=== PATIENT | male | born 1950 | race Caucasian/White ===

== ENCOUNTER 2016-11-09 18:41 | Inpatient (IN) | payer MEDICARE, OTHER ==
[~2016-11-09] VITALS: Ht 172.7 cm; Wt 65.5 kg
[~2016-11-09 18:41] MED LIST: ETOMIDATE 20 MG INJ ONE; ROCURONIUM 50 MG INJ ONE
[2016-11-09 19:12] LABS: AADO2 Arterial 32.1 mmHg (7.0-24.0); Allen Test ACCEPTAB; Arterial Base Excess 0.1 mmol/L (-3.0-3); Arterial COHb 0.3 % (0.0-3.0); Arterial Fraction of Oxyhgb 95.2 % (93.0-99.0); Arterial HCO3 22.4 mmol/L (22.0-26.0); Arterial MetHb 0.4 % (0.0-1.5); Arterial Total Hemglobin 11.9 g/dl (12.0-18.0); MODE ROOM AIR
--- NOTE | 2016-11-09 19:32 | RADRPT ---
PROCEDURE: XR Chest. CLINICAL INDICATION: Chest pain TECHNIQUE: AP view of the chest was performed. COMPARISON: None. FINDINGS: The lungs are clear. The lung volumes are normal. The heart size is enlarged. Single lead cardiac device is present with the tip in the region of the aortic knob. The osseous structures are intact . IMPRESSION: Cardiomegaly. No radiographic evidence for acute cardiopulmonary disease. RPTAT: QQ .Carrington Powell MD, MD Date Time Electronically viewed and signed by .Carrington Powell MD, MD on 11/09/2016 19:32 .M/
--- NOTE | 2016-11-09 19:34 | ERA ---
ER Documentation Chief Complaint Date/Time DATE: 11/09/16 TIME: 19:30 Chief Complaint ALOC for several days per family,HD not started today,accucheck 109 HPI 66-year-old male history of end-stage renal disease on dialysis. The patient went to dialysis today but was altered and they would not perform dialysis. Family is not available but EMS reports that the family notes that the patient has been altered for approximately 1 week, worse over the past 48 hours. The patient is nonverbal and cannot provide further history. Accu-Chek in the field was 109. ROS Nonverbal Medications Home Meds Reported Medications Warfarin Sodium* (Warfarin Sodium*) 6 Mg Tablet, 2 MG GTB DAILY, TAB 11/09/16 Sennosides* (Senna Lax*) 8.6 Mg Tablet, 1 TAB GTB BID, TAB 11/09/16 Sevelamer Carbonate* (Renvela*) 0.8 Gm Powd.pack, 0.8 GM GTB WITH MEALS Y for NEEDED, PACKET 11/09/16 Midodrine* (Midodrine*) 10 Mg Tablet, 10 MG GTB TID Y for NEEDED, TAB 11/09/16 Clopidogrel Bisulfate* (Clopidogrel Bisulfate*) 75 Mg Tablet, 75 MG GTB DAILY, # 30 TAB 11/09/16 Atorvastatin* (Atorvastatin*) 40 Mg Tablet, 40 MG GTB QHS, #30 TAB 11/09/16 Carvedilol* (Carvedilol*) 3.125 Mg Tablet, 3.125 MG GTB BID, #60 TAB 11/09/16 Docusate Sodium* (Doc-Q-Lace*) 100 Mg Capsule, 100 MG GTB BID Y for CONSTIPATION , CAP 11/09/16 Lisinopril* (Lisinopril*) 5 Mg Tablet, 5 MG GTB DAILY, #30 TAB 11/09/16 Allergies Allergies: Coded Allergies: clonidine (Verified Allergy, Unknown, 11/09/16) codeine (Verified Allergy, Unknown, 11/09/16) levetiracetam (Unverified Allergy, Unknown, 11/09/16) PMhx/Soc Unable to obtain FmHx Unable to obtain Physical Exam Vitals Vital Signs Date Time Temp Pulse Resp B/P Pulse Ox O2 Delivery O2 Flow Rate FiO2 11/09/16 22:15 99.8 107 14 148/78 99 Mechanical Ventilator 11/09/16 20:30 126 14 183/94 100 Mechanical Ventilator 11/09/16 18:58 99.1 102 18 177/82 94 Physical Exam General: Appears older than stated age, nonverbal, responsive to painful stimuli and sternal rub, slightly sonorous but protecting airway Head: Normocephalic, atraumatic. Eyes: Pupils equally reactive, EOM intact ENT: Dry mucous membranes Neck: Supple, no lymphadenopathy Respiratory: Slight rhonchi at the bases, nonlabored Cardiovascular: RRR, no murmurs, rubs, or gallops Abdominal: Soft, non-tender, non-distended, no peritoneal signs : Deferred MSK: No edema, no unilateral swelling, diffuse generalized weakness, limited movement of all extremities Neurologic: Sonorous, nonverbal, limited movement of all extremities, GCS of 10 Skin: No rash Psych: Normal mood Result Diagram: 11/09/16190911/09/161909 Results 24 hrs Laboratory Tests Test 11/09/16 18:45 11/09/16 19:10 11/09/16 19:20 11/09/16 19:55 Arterial Blood HCO3 22.4mmol/L 24.0mmol/L Arterial Blood Base Excess 0.1mmol/L 0mmol/L Arterial Blood Oxygen Saturation 95.9mmHG 97.3mmHG Adam Test ACCEPTAB ACCEPTAB Arterial Blood Gas Puncture Site Right Radial Right Radial Arterial Blood Carboxyhemoglobin 0.3% 0.3% Arterial Blood Date Drawn 11/09/2016 7:06:39 PM 11/09/2016 9:17:30 PM Arterial Blood Methemoglobin 0.4% 0.4% Arterial Blood pCO2 (Temp correct) 29.5mmhg 36.9mmhg Arterial Blood pH (Temp corrected) 7.499 7.431 Arterial Blood pO2 (Temp corrected) 82.3mmHG 101.4mmHG Blood Gas A-a O2 Differential 32.1mmHg 213.6mmHg Blood Gas Modality ROOM AIR VENT - AC Blood Gas Notified Time 11/09/2016 7:12:11 PM 11/09/2016 9:21:57 PM Blood Gas Notified Whom MG MG Blood Gas Specimen Source Blood arterial Blood arterial Blood Gas Temperature 37.0C 37.0C FiO2 21.0% 50.0% Oxyhemoglobin Percent 95.2% 96.6% Total Hemoglobin 11.9g/dl 11.8g/dl Activated Partial Thromboplast Time 45.3Sec Alanine Aminotransferase (ALT/SGPT) 123IU/L Albumin 3.0g/dl Albumin/Globulin Ratio 0.69 Alkaline Phosphatase 271IU/L Ammonia < 9umol/l Anion Gap 20 Aspartate Amino Transf (AST/SGOT) 149IU/L Basophils # 0.010^3/ul Basophils % 0.2% Blood Urea Nitrogen 98mg/dl Calcium Level 9.5mg/dl Carbon Dioxide Level 30mmol/L Chloride Level 97mmol/L Creatinine 4.70mg/dl Direct Bilirubin 0.00mg/dl Eosinophils # 0.410^3/ul Eosinophils % 3.2% Ethyl Alcohol Level < 10.0mg/dl Free Thyroxine Index 1.99ug/ml Globulin 4.30g/dl Glucose Level 103mg/dl Hematocrit 38.3% Hemoglobin 12.2g/dl INR International Normalized Ratio 1.62 Indirect Bilirubin 0.0mg/dl Lactic Acid Level 1.7mmol/L Lymphocytes # 1.510^3/ul Lymphocytes % 10.8% Mean Corpuscular Hemoglobin 30.0pg Mean Corpuscular Hemoglobin Concent 31.9g/dl Mean Corpuscular Volume 94.3fl Mean Platelet Volume 9.9fl Monocytes # 1.710^3/ul Monocytes % 12.4% Neutrophils # 9.810^3/ul Neutrophils % 72.0% Nucleated Red Blood Cells # 0.010^3/ul Nucleated Red Blood Cells % 0.0/100WBC Platelet Count 36925^3/UL Potassium Level 3.8mmol/L Prothrombin Time 19.4Sec Prothrombin Time Ratio 1.5 Red Blood Count 4.0610^6/ul Red Cell Distribution Width 15.9% Sodium Level 143mmol/L Thyroxine (T4) 4.0ug/dl Total Bilirubin 0.0mg/dl Total Protein 7.3g/dl Triiodothyronine (T3) Uptake 49.7% Troponin I 0.079ng/ml White Blood Count 13.610^3/ul Bedside Glucose 95mg/dL Blood Gas Actual Respiration Rate 14 Blood Gas Inspiratory Pressure 21.0 Blood Gas Low PEEP Setting 5.0cmH2O Blood Gas Respiration Rate 14.0 Blood Gas Tidal Volume 500.0mL Test 11/09/16 21:35 Lactic Acid Level 1.6mmol/L Current Medications Medications (Trade) Dose Ordered Sig/Ihsan Route PRN Reason Start Time Stop Time Status Last Admin Dose Admin Rocuronium Aurora (Zemuron) 100 mg ONCE STAT IV 11/09/16 19:55 11/09/16 19:56 DC Etomidate 20 mg 20 mg ONCE STAT IV 11/09/16 19:55 11/09/16 19:56 DC Propofol (Diprivan) 100 ml @ 2.182 mls/ hr ONCE STAT IV 11/09/16 19:55 11/11/16 17:44 Sodium Chloride 2250 ml 2,250 ml BOLUS OVER 2 HOURS STAT IV* 11/09/16 19:56 11/09/16 20:00 DC 11/09/16 20:14 Cefepime HCl 50 ml @ 100 mls/hr ONCE STAT IVPB 11/09/16 19:56 11/09/16 20:25 DC 11/09/16 20:13 Vancomycin HCl 250 ml @ 125 mls/hr ONCE ONCE IVPB 11/09/16 20:00 11/09/16 21:59 DC 11/09/16 22:08 Midazolam HCl 50 ml @ 3 mls/hr ONCE STAT IV 11/09/16 20:09 11/10/16 12:48 11/09/16 22:09 Fentanyl 100 ml @ 2.5 mls/hr TITRATE ONCE IV 11/09/16 20:30 11/11/16 12:29 11/09/16 22:14 Clindamycin HCl/ Dextrose (Cleocin 600 Mg/ D5W (Pmx)) 50 ml @ 50 mls/hr ONCE IVPB 11/09/16 22:00 11/09/16 22:59 Procedures/MDM EKG, MONITORS, & DIAGNOSTIC IMAGING: EKG: I reviewed and interpreted a 12-lead EKG. Rhythm: Sinus tachycardia Ectopy: None Intervals: No abnormalities ST segments: No elevations or depressions T waves: No contiguous inversions Chest x-ray: I reviewed and interpreted a 1 view of the chest Mediastinum: No enlargement Cardiac silhouette: No cardiomegaly Airspace: Clear lung santos bilaterally without evidence of pneumothorax Bones: No evidence of fracture CXR s/p intubation Chest x-ray: I reviewed and interpreted a 1 view of the chest Mediastinum: No enlargement Cardiac silhouette: No cardiomegaly Airspace: Clear lung santos bilaterally without evidence of pneumothorax Bones: No evidence of fracture Endotracheal tube in the right mainstem Of note the endotracheal tube was pulled back 3 cm after the second x-ray was obtained. Bilateral breath sounds were auscultated. CT brain: IMPRESSION: 1. Normal right frontal lobe ischemic infarct with extensive chronic microvascular ischemic changes in the deep white matter. 2. Marked parenchymal volume loss compatible with global atrophy. 3. Early ischemic injury may be occult to CT imaging and diffusion weighted MRI may be considered as clinically warranted. CT a/p IMPRESSION: 1. Cardiomegaly with extensive atherosclerotic vascular disease involving the coronary arteries, thoracic and abdominal aorta, renal arteries, common iliac arteries, internal and external iliac and common femoral arteries. 2. There is a small pericardial effusion. 3. There is consolidative infiltrate in the right lower lobe and the 8 ml pleural-based pulmonary nodule in the right lower lobe. Follow-up imaging is recommended to confirm stability and/or clearing of these lesions in 3 months. 4. There is a small right pleural effusion. 5. Mild hepatomegaly. No hepatic mass or intrahepatic biliary ductal dilatation is identified. Ultrasound should be considered for further evaluation of the liver. 6. Bilaterally small kidneys with multiple renal cysts suspicious for chronic medical renal disease. Small nonobstructive nephrolith in the right kidney as described above. The renal sonogram is recommended for further characterization a 1.7 cm hyperattenuating subcapsular lesion superior pole right kidney. 7. Reflex ileus. 8. Midline umbilical hernia containing fat. 9. Fecal impaction in the rectal ampulla. 10. Right inguinal hernia containing fat. There is fat bulging into the left inguinal canal. RPTAT:AAJJ PROCEDURES: Intubation Note: Indication: Airway protection Consent: This was an emergent situation, implied consent was observed RSI Medications: Etomidate 20 mg, Rocuronium 100 mg Tube size: 7.5 Secured at: 23.5 at the lip Procedure: Endotracheal intubation was performed. The patient was preoxygenated with supplemental oxygen, the room was set up with emergent airway equipment including [id number], suction, adjunct airways. Direct visualization of the cords was performed with direct laryngoscopy using a 4.0 Mac blade, insertion of the endotracheal tube through the cords was visualized by the lithograph press operator. Bilateral breath sounds were auscultated, color change was observed. The tube was then secured in a postintubation chest x-ray was ordered. The patient tolerated the procedure well there were no complications. Peripheral IV Insertion: Indication: Difficult IV access Location: Right forearm Attempts: 1 Angiocath-type: 18-gauge Sterile procedure was used to insert a peripheral IV. Indication, location and Angiocath-type are noted above. Ultrasound guidance was used to assist in the insertion of the Angiocath. Return of dark nonpulsatile blood was obtained, normal saline flushed through the Angiocath which was then secured to the skin. The patient tolerated the procedure well without complications. Emergency Bedside Ultrasound: Indication: Peripheral IV insertion Probe Type: Linear Findings: Dynamic ultrasound utilized with compression technique with both linear and horizontal views. The images were not saved because there is no printing or saving availability or capability on this ultrasound, the patient tolerated the procedure well and there were no complications. LAB INTERPRETATION: Leukocytosis, normal lactic acid MEDICAL DECISION MAKING: The patient presents with altered mental status of at least 48 hours. The patient is a dialysis patient. Extremely broad differential that includes intracranial hemorrhage, stroke, electrolyte disturbance, sepsis, chronic encephalopathy among others. The patient is sonorous but appears to be withdrawing to pain and protecting his airway. His GCS is 10 therefore if he has any deterioration I would anticipate early intubation. However, given the patient's comorbidities, age, I would like to avoid unnecessary intubation. Since the patient's oxygen saturation is 97 and above his arterial blood gas is reassuring and the patient does not appear to be aspirating I will hold off and intubation at this point. However, close airway monitoring is necessary and the patient should be admitted to the ICU. ER COURSE: The patient has a leukocytosis. During his ER course the patient deteriorated. His GCS dropped below 8. Despite a reassuring blood gas I do not feel that the patient was protecting his airway. He was at significant aspiration risk, the family was not available and the patient was intubated as documented above. He was intubated for airway protection. The patient's endotracheal tube was in the right mainstem after intubation and eventually pulled back 3 cm after chest x-ray determined mainstem intubation. The patient now has improved bilateral breath sounds. The patient is being sedated with fentanyl and Versed. The family arrived later and states that this has been his mental status for some time. They would prefer extubation if at all possible however given the patient's leukocytosis and CT findings concerning for aspiration pneumonia I do not feel that extubation at this time is appropriate. The patient will need more stabilization and reassessment tomorrow morning. The family feels comfortable with this plan at this time. The patient does meet criteria for sepsis. No evidence that the patient requires a central line or pressors at this time. Lactic acid is reassuring. I kept the patient and/or family informed of laboratory and diagnostic imaging results throughout the emergency room course. DISPOSITION PLAN: ICU CONSULTATION: Accepting care team and consultations: I discussed the current laboratory data, diagnostic imaging and emergency care provided. Admitting team: Dr. Cormier Admitting team indication: Insurance directed Sepsis Documentation: Patient's infectious symptoms have not stabilized and the patient is at risk of rapid decompensation. The patient will be admitted for careful hydration, antibiotic therapy, and infectious source control. SEVERE SEPSIS CRITERIA: Infectious source: Aspiration pneumonia End organ damage indicated by: Acute Resp Failure SEPSIS MANAGEMENT Time of recognition of severe sepsis/septic shock: [address] results of pneumonia 3 HOUR BUNDLE Blood cultures x 2 before broad-spectrum antibiotics: Yes 30 ml/kg NS bolus Completed Initial lactate less than 2 Repeat lactate pending SEPTIC SHOCK ASSESSMENT: No lactic acid > 4.0 No persistent hypotension (SBP < 90 or 40 mmHg drop, MAP < 65) despite 30 mL/kg IV fluid bolus VOLUME REASSESSMENT FOR SEPTIC SHOCK: Reevaluation Time: 10:23 PM Temperature of 99.8, heart rate 107, respiratory rate 14, blood pressure 148/70 , pulse of 99 on ventilator Heart Regular rate & rhythm Lungs No crackles Skin Warm & dry Cap Refill Less than 2 seconds Peripheral pulses Radially present PERSISTENT HYPOTENSION TREATMENT: Comfort care No Central line Not Required Vasopressor started Not required I considered further perfusion assessment with CVP measurement, SCVO2, bedside ultrasound volume assessment, passive leg raise, trial of further fluid bolus. And proceeded with 30 ml/kg fluid bolus of NSS, broad spectrum antbiotics, and admission. CRITICAL CARE Critical care time 47 minutes Emergent fluid management while maintaining close respiratory support. Provision of immediate and broad-spectrum antibiotic therapy. Simultaneous assessment for possible sources in order to direct targeted therapy. Consideration for invasive and chemical support to prevent cardiopulmonary collapse. Critical care time is independent of procedures performed. Departure Diagnosis: Primary Impression: Altered level of consciousness Additional Impressions: Severe sepsis Aspiration pneumonia Qualified Code: J69.0 - Aspiration pneumonia of right lower lobe, unspecified aspiration pneumonia type Transaminitis Encephalopathy chronic Acute respiratory failure Qualified Code: J96.00 - Acute respiratory failure, unspecified whether with hypoxia or hypercapnia Condition: Critical IBAN TREVINO MD Nov 09, 2016 19:34
[2016-11-09 19:35] LABS: BASOPHILS % 0.2 % (0.0-2.0); EOSINOPHILS # 0.4 10^3/ul (0.0-0.5); EOSINOPHILS % 3.2 % (0.0-7.0); HEMATOCRIT 38.3 % (42.0-52.0); HEMOGLOBIN 12.2 g/dl (14.0-18.0); LYMPHOCYTES # 1.5 10^3/ul (0.8-2.9); LYMPHOCYTES % 10.8 % (15.0-51.0); MEAN CORPUSCULAR HGB CONC 31.9 g/dl (32.0-37.0); MEAN CORPUSCULAR VOLUME 94.3 fl (82.0-101.0); MEAN PLATELET VOLUME 9.9 fl (7.4-10.4); MONOCYTE # 1.7 10^3/ul (0.3-0.9); MONOCYTES % 12.4 % (0.0-11.0); NEUTROPHIL # 9.8 10^3/ul (1.6-7.5); PLATELET COUNT 493 10^3/UL (140-415); RED BLOOD COUNT 4.06 10^6/ul (4.70-6.10); RED CELL DISTRIBUTION WIDTH 15.9 % (11.5-14.5); WHITE BLOOD COUNT 13.6 10^3/ul (4.8-10.8)
[2016-11-09 19:48] LABS: INR 1.62; PROTIME 19.4 Sec (12.2-14.2); PT RATIO 1.5
[2016-11-09 19:49] LABS: PARTIAL THROMBOPLASTIN TIME 45.3 Sec (25.0-35.0)
[2016-11-09 19:53] LABS: CHLORIDE 97 mmol/L (97-110); POTASSIUM 3.8 mmol/L (3.5-5.1); SODIUM 143 mmol/L (135-144)
[2016-11-09 19:54] LABS: LACTIC ACID 1.7 mmol/L (0.5-2.2)
[2016-11-09 19:55] LABS: ALANINE AMINOTRANSFERASE 123 IU/L (13-69); ALBUMIN/GLOBULIN RATIO 0.69; ALKALINE PHOSPHATASE 271 IU/L (42-121); ANION GAP 20 (8-16); ASPARTATE AMINO TRANSFERASE 149 IU/L (15-46); BLOOD UREA NITROGEN 98 mg/dl (7-20); CARBON DIOXIDE 30 mmol/L (21-31); GLUCOSE 103 mg/dl (70-220); TOTAL PROTEIN 7.3 g/dl (6.1-8.1)
[2016-11-09] MEDS ORDERED: ETOMIDATE 20 MG INJ IV STA (19:55)
[2016-11-09] MEDS ORDERED: ROCURONIUM 50 MG INJ IV STA (19:55)
[2016-11-09] MEDS ORDERED: PROPOFOL 100 ML IV STA (19:55)
[2016-11-09 19:56] LABS: CALCIUM 9.5 mg/dl (8.4-10.2)
[2016-11-09] MEDS ORDERED: SODIUM CHLORIDE 0.9% 1L BAG IV* STA (19:56)
[2016-11-09] MEDS ORDERED: CEFEPIME 2GM/50 ML (PMX) 50 ML IVPB STA (19:56)
[2016-11-09 19:58] LABS: ETHANOL < 10.0 mg/dl
[2016-11-09 20:00] LABS: AMMONIA < 9 umol/l (9-30)
[2016-11-09] MEDS ORDERED: VANCOMYCIN 1 GM (PMX) 250 ML IVPB ONE (20:00)
[2016-11-09 20:07] LABS: TROPONIN-I 0.079 ng/ml (0.00-0.12)
[2016-11-09] MEDS ORDERED: MIDAZOLAM (DRIP) 50 mg/50 mL 50 ML IV STA (20:09)
[2016-11-09] MEDS ORDERED: FENTAnyl (DRIP) 1000 mcg/100mL 100 ML IV ONE (20:30)
[2016-11-09 20:37] LABS: T3 UPTAKE 49.7 % (23.5-40.5)
--- NOTE | 2016-11-09 20:38 | RADRPT ---
PROCEDURE: XR Chest. CLINICAL INDICATION: Assess endotracheal tube placement. TECHNIQUE: Single frontal view of the chest was obtained COMPARISON: Chest x-ray 11/09/2016. FINDINGS: The soft tissues are normal. The bony elements are normal. The heart, left side aorta, cardiomedias tinal silhouette, pulmonary vasculature and hilar structures are normal. The lungs are clear. The co stophrenic angles are normal. The endotracheal tube is in the right mainstem bronchus and should be withdrawn about 4 cm for better positioning. A single lead cardiac device is identified with the tip projecting at the level of the aortic arch. IMPRESSION: 1. The endotracheal tube rests in the proximal right mainstem bronchus and should be withdrawn 3-4 c m for more superior positioning. 2. Cardiomegaly. 3. Single lead cardiac device with the distal electrode tip projecting at the level of the aortic a rch.. RPTAT:AAJJ Physician Don Date Time Electronically viewed and signed by Physician Don on 11/09/2016 20:38 MICHAELA/
--- NOTE | 2016-11-09 20:57 | RADRPT ---
PROCEDURE: CT Brain without contrast. CLINICAL INDICATION: Altered Mental Status TECHNIQUE: A multiplanar CT of the brain was performed on a CT scanner utilizing axial imaging fro m the skull base through the vertex without IV contrast. The CTDIvol is 43.68 mGy and the DLP is 63 0.20 mGycm. One or more of the following dose reduction techniques were utilized: Automated exposu re control, adjustment of the mA and/or kV according to patient size, use of iterative reconstructio n technique. COMPARISON: None FINDINGS: No evidence of intracranial hemorrhage or abnormal extra-axial fluid collection. Wedge-shaped defect in the right frontal lobe compatible with remote ischemic infarct. Extensive co nfluent low attenuation throughout the deep white matter compatible with sequelae of chronic microva scular ischemic injury. The ventricles and subarachnoid spaces are markedly prominent compatible wi th diffuse cerebral parenchymal volume loss. Opacification of fluid levels within the right maxillary and sphenoid sinuses compatible with acute and chronic inflammatory changes. The posterior fossa contents, brainstem, craniocervical junction, orbits, pituitary axis, paranasal sinuses, mastoid air cells, and calvarium are unremarkable. IMPRESSION: 1. Normal right frontal lobe ischemic infarct with extensive chronic microvascular ischemic changes in the deep white matter. 2. Marked parenchymal volume loss compatible with global atrophy. 3. Early ischemic injury may be occult to CT imaging and diffusion weighted MRI may be considered as clinically warranted. RPTAT:AAJJ Physician Bharathi Date Time Electronically viewed and signed by Physician Bharathi on 11/09/2016 20:57 DEJON/
[2016-11-09] MEDS ORDERED: LISI-313 GTB (21:09)
[2016-11-09] MEDS ORDERED: DOCU100C26 GTB (21:09)
[2016-11-09] MEDS ORDERED: CARV3.1260 GTB (21:10)
[2016-11-09] MEDS ORDERED: ATOR40TA68 GTB (21:10)
[2016-11-09] MEDS ORDERED: CLOP75TA4 GTB (21:11)
[2016-11-09] MEDS ORDERED: MIDO10TA GTB (21:12)
[2016-11-09] MEDS ORDERED: SEVE0.8P GTB (21:13)
[2016-11-09] MEDS ORDERED: SENN-53 GTB (21:14)
[2016-11-09] MEDS ORDERED: WARF6TAB35 GTB (21:16)
--- NOTE | 2016-11-09 21:16 | RADRPT ---
PROCEDURE: CT scan of the abdomen and pelvis without IV contrast. CLINICAL INDICATION: Transaminase. TECHNIQUE: Thin section axial, coronal and sagittal images were performed through the abdomen and pelvis without contrast. Radiation Dose: CTDI: 13.05 and DLP: 731.3 One or more of the following dose reduction techniques were used: - Automated exposure control. - Adjustment of the mA and/or kV according to patient size. Use of iterative reconstruction technique. COMPARISON: Chest x-ray 11/02/2016 06:18 a.m. FINDINGS: Soft tissues: Normal. Lungs and pleural spaces: There is consolidative infiltrate in the medial aspect of the left lower l obe. There is a 8 mm pulmonary nodule abutting the pleural surface in the right lower lobe. There is a small right pleural effusion. There is peripheral atelectasis in the right lower lobe. Heart: The heart is enlarged. There are vascular calcifications at the root of the aorta, in the de scending thoracic aorta and coronary arteries. There is a small pericardial effusion. The liver, common bile duct and gallbladder: The liver measures 15.6 cm AP. No hepatic mass or intr ahepatic biliary ductal dilatation is identified. The gallbladder and gallbladder wall are normal. Gastrointestinal: There is no evidence of a hiatal hernia. The stomach is incompletely distended an d contains some fluid. The small bowel loops and a normal caliber. There is scattered fecal materi al and air in the colon. There is a large amount of fecal material in the rectal ampulla suspicious for a rectal impaction. There is a small right inguinal hernia containing fat. There is a small u mbilical hernia containing fat. Pancreas: Normal. The extrahepatic common bile duct is normal. Kidneys, bladder and adrenal glands : The adrenal glands are normal. The kidneys are small and smoothly marginated and contain multiple small cysts. There is a 1.7 cm subcapsular lesion in the dorsal upper pole of the right kidney. This is incomple tely characterized on this noncontrast CT scan. Hounsfield units measure 76. A hemorrhagic cyst, p roteinaceous cyst or solid lesion might present this fashion. Ultrasound is recommended to complete the evaluation. A 2.8 mm nonobstructive nephrolith is identified in the mid pole of the right kidney. A 2 mm nonobs tructive nephrolith is identified in the lower pole of the right kidney. There are multiple benign cyst in the left kidney. There is a 1.5 cm subcapsular lesion in the uppe r pole of the right kidney with Hounsfield units measuring 10.2 consistent with a benign cyst. Ther e are vascular calcifications in the right left renal arteries. Spleen: The spleen is normal measuring 11.5 cm. There are vascular calcifications in the splenic ar pedro. Lymph nodes: Normal. Reproductive system and pelvis : Normal. The prostate and seminal vesicles are unremarkable. Bony elements: There are degenerative osteophytes in the lower thoracic and lumbar spine. Vasculature: There is extensive atherosclerotic change in the thoracic and abdominal aorta as well a s the common iliac arteries. There is fusiform dilatation of the upper abdominal aorta measuring up to 3.9 cm in maximal transverse diameter. IMPRESSION: 1. Cardiomegaly with extensive atherosclerotic vascular disease involving the coronary arteries, th oracic and abdominal aorta, renal arteries, common iliac arteries, internal and external iliac and c ommon femoral arteries. 2. There is a small pericardial effusion. 3. There is consolidative infiltrate in the right lower lobe and the 8 ml pleural-based pulmonary n odule in the right lower lobe. Follow-up imaging is recommended to confirm stability and/or clearin g of these lesions in 3 months. 4. There is a small right pleural effusion. 5. Mild hepatomegaly. No hepatic mass or intrahepatic biliary ductal dilatation is identified. Ult rasound should be considered for further evaluation of the liver. 6. Bilaterally small kidneys with multiple renal cysts suspicious for chronic medical renal disease . Small nonobstructive nephrolith in the right kidney as described above. The renal sonogram is rec ommended for further characterization a 1.7 cm hyperattenuating subcapsular lesion superior pole rig ht kidney. 7. Reflex ileus. 8. Midline umbilical hernia containing fat. 9. Fecal impaction in the rectal ampulla. 10. Right inguinal hernia containing fat. There is fat bulging into the left inguinal canal. RPTAT:AAJJ Physician Don Date Time Electronically viewed and signed by Physician Don on 11/09/2016 21:15 LEIGH ANN
[2016-11-09 21:22] LABS: AADO2 Arterial 213.6 mmHg (7.0-24.0); Allen Test ACCEPTAB; Arterial Base Excess 0 mmol/L (-3.0-3); Arterial COHb 0.3 % (0.0-3.0); Arterial Fraction of Oxyhgb 96.6 % (93.0-99.0); Arterial MetHb 0.4 % (0.0-1.5); Arterial Total Hemglobin 11.8 g/dl (12.0-18.0); MODE VENT - AC
[2016-11-09] MEDS ORDERED: CLINDAMYCIN 600 MG/D5W (PMX) 50 ML IVPB SCH (22:00)
[2016-11-09 22:15] VITALS: TEMP 99.8
[2016-11-09] MEDS ORDERED: morphine 2 MG INJ IV PRN (23:30)
[2016-11-09] MEDS ORDERED: NACL 0.9% 3 ML SYG IV SCH (23:30)
[2016-11-09] MEDS ORDERED: VANCOMYCIN IV PER PHARMACY XX SCH (23:30)
[2016-11-09] MEDS ORDERED: ONDANSETRON 4 MG INJ IV PRN (23:30)
[2016-11-10] VITALS (56 sets, daily range): BP systolic 60–141; BP diastolic 35–72; PULSE 72–92; RESP 12–25; Ht 172.7 cm; Wt 65.5 kg
[2016-11-10 00:40] LABS: ADD UMIC YES; URINE BILIRUBIN (Dip) NEGATIVE (NEGATIVE); URINE BLOOD (Dip) TRACE (NEGATIVE); URINE COLOR LT. YELLOW (YELLOW); URINE GLUCOSE (Dip) NEGATIVE (NEGATIVE); URINE KETONES (Dip) NEGATIVE (NEGATIVE); URINE LEUKOCYTE ESTERASE (Dip) NEGATIVE (NEGATIVE); URINE NITRITE (Dip) NEGATIVE (NEGATIVE); URINE TOTAL PROTEIN (Dip) 2+ (NEGATIVE); URINE UROBILINOGEN (Dip) 0.2 E.U./dL (0.1-1.0)
[2016-11-10] MEDS ORDERED: NORepinephrine 8MG/250 ML (PMX 250 ML IV SCH (01:00)
[2016-11-10 01:50] LABS: SQUAMOUS EPITHELIAL CELL,UR RARE; URINE RBCS 0-2 /HPF (0)
[2016-11-10] MEDS: SOD CHLORIDE 0.45% 1,000 ML IV SCH ×2 (02:30→23:07)
[2016-11-10] MEDS ORDERED: MIDAZOLAM (DRIP) 50 mg/50 mL 50 ML IV SCH (03:30)
--- NOTE | 2016-11-10 04:36 | RADRPT ---
PROCEDURE: XR Chest. CLINICAL INDICATION: Endotracheal tube repositioning TECHNIQUE: Portable single view of the chest COMPARISON: 11/09/2016 FINDINGS: The endotracheal tube has been pulled back and is now in good position. The exam is otherwise uncha nged. The lung santos remain clear. Cardiomegaly. Cardiac device unchanged in position. IMPRESSION: Endotracheal tube now in good position. RPTAT: HLBE Greta Mckeon, Physician Date Time Electronically viewed and signed by Greta Mckeon, Physician on 11/10/2016 04:36 LE/
[2016-11-10] MEDS: PANTOPRAZOLE 40 MG INJ IV SCH (05:35)
[2016-11-10 05:42] LABS: ADD SCAN DIFF NO; HAAIG REFLEX REFLEX FILED
[2016-11-10 05:55] LABS: ABNORMAL IP MESSAGE 1; BASOPHIL # 0.1 10^3/ul (0.0-0.1); BASOPHILS % 0.4 % (0.0-2.0); EOSINOPHILS % 0.1 % (0.0-7.0); HEMATOCRIT 32.9 % (42.0-52.0); HEMOGLOBIN 10.2 g/dl (14.0-18.0); LYMPHOCYTES # 1.6 10^3/ul (0.8-2.9); LYMPHOCYTES % 12.8 % (15.0-51.0); MEAN CORPUSCULAR HEMOGLOBIN 30.1 pg (29.0-33.0); MEAN CORPUSCULAR VOLUME 97.1 fl (82.0-101.0); MEAN PLATELET VOLUME 10.7 fl (7.4-10.4); MONOCYTE # 1.7 10^3/ul (0.3-0.9); MONOCYTES % 13.9 % (0.0-11.0); NEUTROPHIL # 8.7 10^3/ul (1.6-7.5); NEUTROPHILS % 71.4 % (39.0-77.0); PLATELET COUNT 415 10^3/UL (140-415); RED BLOOD COUNT 3.39 10^6/ul (4.70-6.10); RED CELL DISTRIBUTION WIDTH 16.2 % (11.5-14.5); WHITE BLOOD COUNT 12.1 10^3/ul (4.8-10.8)
[2016-11-10] MEDS ORDERED: PIPER-TAZO 3.375 GM IV (PMX) 100 ML IVPB SCH (06:00)
[2016-11-10 06:16] LABS: ALBUMIN 2.6 g/dl (3.3-4.9)
[2016-11-10 06:17] LABS: POTASSIUM 3.7 mmol/L (3.5-5.1)
[2016-11-10 06:18] LABS: CREATININE 4.19 mg/dl (0.61-1.24)
[2016-11-10 06:19] LABS: ALBUMIN/GLOBULIN RATIO 0.68; BILIRUBIN,INDIRECT 0.1 mg/dl (0-1.1); BILIRUBIN,TOTAL 0.1 mg/dl (0.2-1.3); TOTAL PROTEIN 6.4 g/dl (6.1-8.1)
[2016-11-10 06:20] LABS: CALCIUM 8.3 mg/dl (8.4-10.2); MAGNESIUM 2.3 mg/dl (1.7-2.5); PHOSPHORUS 4.5 mg/dl (2.5-4.9)
[2016-11-10 06:49] LABS: HEPATITIS B CORE ANTIBODY NEGATIVE (NEGATIVE)
[2016-11-10 08:50] LABS: AADO2 Arterial 118.7 mmHg (7.0-24.0); Allen Test ACCEPTAB; Arterial Base Excess -2.6 mmol/L (-3.0-3); Arterial COHb 0.3 % (0.0-3.0); Arterial Fraction of Oxyhgb 97.5 % (93.0-99.0); Arterial HCO3 20.6 mmol/L (22.0-26.0); Arterial MetHb 0.3 % (0.0-1.5); Arterial Total Hemglobin 9.6 g/dl (12.0-18.0); MODE VENT - AC
[2016-11-10] MEDS ORDERED: LISINOPRIL 5 MG TAB GTB SCH (09:00)
[2016-11-10] MEDS ORDERED: WARFARIN 3 MG TAB GTB SCH (09:00)
--- NOTE | 2016-11-10 09:22 | HP ---
DATE OF ADMISSION: 11/09/2016 TIME: 10:00 p.m. CHIEF COMPLAINT: Altered mental status. HISTORY OF PRESENT ILLNESS: The patient is a 66-year-old male with a history of end-stage renal dis ease, on dialysis. The patient also reportedly has a recent history of a stroke and is status post PEG placement. The patient apparently went to dialysis today, was altered, and they would not perfo rm dialysis. The family is not available and, per EMS report and the ER notes, the family had noted the patient had been altered for possibly a week and worse for the past 48 hours. The decision was made to intubate the patient in the ED. No other information can be obtained by the patient. PAST MEDICAL HISTORY: End-stage renal disease and stroke, as well as hypertension from home medicat ions. PAST SURGICAL HISTORY: Unknown. HOME MEDICATIONS: 1. Coumadin. 2. Senna. 3. Renagel. 4. Midodrine. 5. Plavix. 6. Atorvastatin. 7. Coreg. 8. Docusate. 9. Lisinopril. ALLERGIES: 1. CODEINE. 2. CLONIDINE. 3. KEPPRA. FAMILY HISTORY: Unknown. SOCIAL HISTORY: Unknown. REVIEW OF SYSTEMS: Unable to obtain secondary to poor mentation. PHYSICAL EXAMINATION: VITAL SIGNS: Temperature is 99.8, pulse is 107, respiratory rate is 14, BP is 148/78, saturations 9 9% on mechanical ventilation. GENERAL: Nonverbal, intubated. HEENT: Normocephalic, atraumatic. LUNGS: Clear to auscultation. CARDIOVASCULAR: Tachycardic. ABDOMEN: Nondistended, nontender, soft. EXTREMITIES: No clubbing, cyanosis, or edema. LABORATORIES: White count 13.6, hemoglobin 12.2, platelets are 493. Chemistry within normal limits , except for a BUN of 98, creatinine 4.7, anion gap is 20. AST is 149, ALT is 123, alkaline phosphat ase is 271. ABG: pH is 7.43, pO2 is 101.4. Tox alcohol was negative. INR was 1.62. DIAGNOSTICS: Chest x-ray shows cardiomegaly. No evidence of acute cardiopulmonary disease. Brain CT shows normal right frontal lobe, ischemic infarct, with extensive chronic microvascular ischemic changes in the deep white matter. There is volume loss, compatible with global atrophy. There is e hai ischemic injury. May be occult. CT imaging and diffusion weighted MRI may be considered if cli nically warranted. Followup chest x-ray shows an ET tube in the proximal right mainstem bronchus an d should be withdrawn 3 to 4 cm. There is a single-lead cardiac device with the distal project ing to the level of the aortic arch. Abdominal and pelvis CT shows atherosclerosis, small pericardi al effusion, consolidative infiltrate in the right lower lobe, small right pleural effusion, mild he patomegaly. No hepatic mass or biliary ductal dilation is identified. There is chronic medical jose l al disease, reflects ileus. ASSESSMENT AND PLAN: 1. Acute on chronic encephalopathy, likely secondary to sepsis, on top of vascular dementia. The p atient has a known history of strokes. The patient may have an acute stroke as well at this time, ca using acute encephalopathy, or the acute encephalopathy could be secondary to a septic picture. The patient does have criteria for sepsis with leukocytosis, fever and tachycardia. Source of sepsis ma y be secondary to aspiration pneumonia. Will treat with broad-spectrum antibiotics at this time. Of note, the patient's blood pressure is beginning to drop and I have started the patient on Levophed. The patient will be transferred to the ICU. The patient will need a MRI when more stable to evalu ate for an acute stroke. The patient reportedly has been altered the past week, but has been worse over the past several days. 2. Acute respiratory failure secondary to #1. There is sepsis and altered mental status. The asha ent was intubated in the ER. Will get a pulmonology consultation for vent management. 3. End-stage renal disease. The patient will need dialysis. Will consult nephrology. Dialysis wi ll be challenging, as the patient is appearing to go into shock from underlying sepsis. 4. Recent history of cerebrovascular accident, status post PEG. The patient reportedly had a strok e several months ago and has had multiple hospitalizations since then. CT does show a right frontal lobe ischemic infarct, with possible early formation of another stroke. Will continue the patient' s Coumadin. 5. History of hypertension. Will hold blood pressure meds, as the patient's blood pressure is drop ping. 6. Right lower lobe consolidation, likely secondary to aspiration pneumonia. Will treat with broad -spectrum antibiotics. 7. Transaminitis, possibly secondary to shock liver. The patient does have hepatomegaly noted on a bdominopelvic CT. Will check a hepatitis panel. 8. Pulmonary edema. The patient has a small right-sided pleural effusion. This is likely secondary to end-stage renal disease. The patient will get dialysis as tolerated. 9. Prophylaxis. The patient is on Warfarin. Dictated By: ROGERIO QUISPE MD BS/NTS Conf#: [id number] DID#: [id number]
[2016-11-10] MEDS: CLOPIDOGREL 75 MG TAB GTB SCH (09:56)
[2016-11-10] MEDS: PIPER-TAZO 2.25 GM (PMX) 50 ML IVPB SCH ×2 (14:28→21:58)
--- NOTE | 2016-11-10 15:42 | CONS ---
DATE OF ADMISSION: 11/09/2016 DATE OF CONSULTATION: 11/10/2016 REFERRING PHYSICIAN: Ras Cormier MD REASON FOR CONSULTATION: End-stage renal disease on hemodialysis for maintenance hemodialysis who presented with altered mental status. HISTORY OF PRESENT ILLNESS: This is a 66-year-old male who has a past medical history of end-stage renal disease on hemodialysis, hypertension, hyperlipidemia , history of previous stroke and had PEG tube placement for nutritional purposes , history of hypertension, recent right lower lobe consolidation possibly secondary to aspiration pneumonia. He was admitted for acute on chronic encephalopathy, likely secondary to sepsis on top of vascular dementia and renal has been consulted because of maintenance hemodialysis since the patient is a chronic dialysis patient. REVIEW OF SYSTEMS: Unable to obtain since the patient is altered and had a stroke. PAST MEDICAL HISTORY: Hypertension, hyperlipidemia, end-stage renal disease on hemodialysis, history of previous CVA resulting in dysphagia and status post PEG tube placement. PAST SURGICAL HISTORY: PEG tube placement. SOCIAL HISTORY: No smoking, alcohol or recreational drug use as per the patient. FAMILY HISTORY: Not available. PHYSICAL EXAMINATION: VITAL SIGNS: Temperature 98.4, heart rate 82, respiration 18, blood pressure 120/54, saturation is 100% on FIO2 40% on mechanical ventilator. HEENT: Intubated on ventilator. ET tube in place. NECK: Supple, no JVD. LUNGS: Bilateral coarse breath sounds. No wheezing. HEART: S1, S2, tachycardia. ABDOMEN: Soft, nontender, nondistended. Bowel sounds are present. G-tube in place, site is clear. EXTREMITIES: No clubbing, cyanosis, or edema. NEUROLOGICAL: Uncooperative for exam. LABORATORY DATA AND DIAGNOSTIC IMAGIN. Sodium 142, potassium 3.7, chloride 102, bicarbonate 24, BUN 97, creatinine 4.1, glucose is 83, calcium 8.3, albumin 2.6, prealbumin 8.4. 2. WBC 13.6, hemoglobin 12.2, platelet count is 493,000. ABG shows a pH of 7.45, pCO2 of 30, pO2 of 132. 3. Urinalysis is negative for infection. 4. CT abdomen and pelvis done in the emergency room for elevated transaminases which shows no evidence of any acute findings. 5. Liver size is large. IMPRESSION: 1. Altered mental status likely secondary to sepsis secondary to pneumonia. 2. Acute respiratory failure, on ventilator. 3. End-stage renal disease on hemodialysis. 4. History of previous stroke resulting in dysphagia status post G-tube placement for feeding purposes. 5. History of hypertension. 6. History of PEG tube placement and arteriovenous fistula for dialysis access. PLAN: 1. Thank you, Dr. Felix, for this consultation. I will order the patient's hemodialysis tomorrow. Currently, today patient has normal stable electrolytes , his chest x-ray today morning shows no evidence of any fluid overload. 2. I will continue the patient's hemodialysis. We will plan for his first dialysis tomorrow. Continue the other care for sepsis, including IV antibiotics as per the primary care service. 3. The patient is currently seen in the ICU and will be followed up along with his course in the hospital. Total Time Spent in patient Care and consultation including communication with Nursing Staff and educating Patient and Familiy is more than 60 minutes. Dictated By: MARTINEZ WEST MD, KP/DRE Conf#: [id number] DID#: [id number] MTDAnibal
[2016-11-10] MEDS: WARFARIN 2 MG TAB GTB SCH (17:59)
[2016-11-11] VITALS (57 sets, daily range): BP systolic 63–154; BP diastolic 40–73; PULSE 76–98; RESP 0–27
[2016-11-11 05:23] LABS: BASOPHILS % 0.2 % (0.0-2.0); EOSINOPHILS # 0.2 10^3/ul (0.0-0.5); EOSINOPHILS % 2.1 % (0.0-7.0); HEMATOCRIT 26.6 % (42.0-52.0); HEMOGLOBIN 8.9 g/dl (14.0-18.0); LYMPHOCYTES # 0.9 10^3/ul (0.8-2.9); LYMPHOCYTES % 7.9 % (15.0-51.0); MEAN CORPUSCULAR HEMOGLOBIN 30.6 pg (29.0-33.0); MEAN CORPUSCULAR HGB CONC 33.6 g/dl (32.0-37.0); MEAN CORPUSCULAR VOLUME 90.8 fl (82.0-101.0); MEAN PLATELET VOLUME 8.3 fl (7.4-10.4); MONOCYTE # 1.4 10^3/ul (0.3-0.9); NEUTROPHIL # 8.4 10^3/ul (1.6-7.5); NEUTROPHILS % 76.8 % (39.0-77.0); PLATELET COUNT 333 10^3/UL (140-440); RED BLOOD COUNT 2.93 10^6/ul (4.70-6.10); UNCORRECTED WBC 10.9 10^3/ul (4.8-10.8); WHITE BLOOD COUNT 10.9 10^3/ul (4.8-10.8)
[2016-11-11 05:23] LABS: AADO2 Arterial 59.6 mmHg (7.0-24.0); Allen Test ACCEPTAB; Arterial Base Excess -1.7 mmol/L (-3.0-3); Arterial COHb 0.3 % (0.0-3.0); Arterial Fraction of Oxyhgb 97.2 % (93.0-99.0); Arterial HCO3 21.9 mmol/L (22.0-26.0); Arterial MetHb 0.3 % (0.0-1.5); Arterial Total Hemglobin 9.9 g/dl (12.0-18.0); MODE VENT - AC
[2016-11-11 05:51] LABS: CONDITION 1; LH ANALYZER COMMENTS 1
[2016-11-11] MEDS: PIPER-TAZO 2.25 GM (PMX) 50 ML IVPB SCH ×3 (06:07→21:21)
[2016-11-11] MEDS: PANTOPRAZOLE 40 MG INJ IV SCH (06:07)
[2016-11-11] MEDS: FENTAnyl (DRIP) 1000 mcg/100mL 100 ML IV SCH (06:08)
[2016-11-11] MEDS: SOD CHLORIDE 0.45% 1,000 ML IV SCH (06:09)
[2016-11-11 06:20] LABS: ALBUMIN 2.3 g/dl (3.3-4.9)
[2016-11-11 06:21] LABS: POTASSIUM 3.9 mmol/L (3.5-5.1)
[2016-11-11 06:23] LABS: CREATININE 5.38 mg/dl (0.61-1.24)
[2016-11-11 06:24] LABS: ALBUMIN/GLOBULIN RATIO 0.62; CALCIUM 8.4 mg/dl (8.4-10.2)
--- NOTE | 2016-11-11 09:18 | CONS ---
DATE OF ADMISSION: 11/09/2016 DATE OF CONSULTATION: 11/10/2016 PULMONARY CONSULTATION PRIMARY PHYSICIAN: Dr. Rogerio Cormier REASON FOR CONSULTATION: Respiratory failure. HISTORY OF PRESENT ILLNESS: Briefly, this is a 66-year-old man with history of end-stage renal dise ase on hemodialysis since 2011, history of hypertension and cerebrovascular disease, status post CVA in the past with progressively worsening cognitive function status post multiple recent hospitaliza tions at outside hospitals including most recently last week at [facility]. The patient apparently was discharged on and was taken into dialysis on Saturday where he was noted to be more altered and having increased work of breathing. At that point, he was transferred to the [facility] room at [facility] where he was intubated for airway protection and pl aced on mechanical ventilation. Additionally of note, patient has had occasional fevers at home wit hout any clear etiology noted. PAST MEDICAL HISTORY: As above. PAST SURGICAL HISTORY: Status post PEG placement. HOME MEDICATIONS: Please see MAR. ALLERGIES: 1. CLONIDINE. 2. CODEINE. 3. KEPPRA. FAMILY HISTORY: Nonsignificant. SOCIAL HISTORY: No tobacco, alcohol or illicit drug use. REVIEW OF SYSTEMS: Unable to obtain. PHYSICAL EXAMINATION: GENERAL: Sedated, intubated, well-nourished gentleman in no acute distress, on mechanical ventilati on. VITAL SIGNS: Blood pressure 102/61, heart rate is 83, temperature is 98.2, 100% on 40[facility]. HEENT: ET tube is in place. NECK: Supple, no thyromegaly, no jugular venous distention. CARDIOVASCULAR: Regular rate and rhythm, S1, S2. No murmurs, rubs, or gallops. LUNGS: Clear to auscultation bilaterally. ABDOMEN: Soft, nontender, no hepatosplenomegaly. EXTREMITIES: No cyanosis, clubbing. He has got some early decubitus on his calcaneus on the right side extremities. LABORATORY DATA: WBC is 12.1, hemoglobin is 10.2, platelets are , BUN is 98, creatinine is 4.7 , pH is 7.46, PaCO2 is 30, pO2 of 132, BUN is 98, creatinine is 4.7, AST is 149, ALT is 123, alkalin e phosphatase is 271, troponin is negative. IMPRESSION: 1. Altered mental status likely in a patient with a very poor baseline cognitive function, possibly precipitated by viral illness. Pneumonia is possible, although the mild atelectatic changes and po ssible infiltrates at the left base are not very impressive. 2. Ventilator-dependent respiratory failure, intubated, more for respiratory insufficiency due to m ental status changes as well as inability to protect airway. 3. End-stage renal disease on dialysis. 4. History of cerebrovascular accident and dysphagia status post G-tube placement. 5. Transaminitis, rule out ischemic hepatopathy versus obstructive process. 6. Hypertensive heart disease. RECOMMENDATIONS: 1. IV fluids and resuscitation for sepsis. 2. Antibiotics with cultures pending with plans to de-escalate pending cultures. 3. Mechanical ventilatory support for the time being with plans to wean as soon as possible. 4. Will discontinue Versed as this will not allow us to reassess his mental status. 5. We will follow up liver function tests as well as liver enzymes and consider a right upper quadr ant ultrasound versus HIDA scan as deemed appropriate. 6. Initiate tube feeds and free water. Dictated By: HARVEY OLIVARES MD NK/NTS Conf#: [id number] DID#: [id number] CC: ROGERIO CORMIER MD;*EndCC*
--- NOTE | 2016-11-11 09:49 | RADRPT ---
PROCEDURE: XR Chest. CLINICAL INDICATION: Shortness of breath. TECHNIQUE: Single frontal view. COMPARISON: 11/10/2016. FINDINGS: The lungs are clear. The endotracheal tube is in satisfactory position. The heart size is normal. There is calcification in the aorta consistent with atherosclerosis. The re is a cardiac device which may be a defibrillator in unchanged position. There is no pleural effusion. There is no pneumothorax. IMPRESSION: 1. No change from 11/10/2016. RPTAT: QQ .Refugio Dai MD, MD Date Time Electronically viewed and signed by .Refugio Dai MD, MD on 11/11/2016 09:49 .R/
[2016-11-11] MEDS: CLOPIDOGREL 75 MG TAB GTB SCH (10:26)
--- NOTE | 2016-11-11 10:27 | PN ---
DATE: INTERNAL MEDICINE PULMONARY CRITICAL CARE NOTE SUBJECTIVE: Chart reviewed. Events noted. The patient remains orally intubated. The patient is n ow off of Levophed infusion. Currently undergoing hemodialysis. OBJECTIVE: VITAL SIGNS: Blood pressure 129/59, pulse 90, respirations 27, temperature 98.0. Currently on 30% FIO2, saturating 100%. HEENT: Pupils are equal and reactive to light, orally intubated. NECK: Supple, no JVD noted, no cervical adenopathy, no carotid bruits heard. LUNGS: Fair breath sounds bilaterally. CARDIOVASCULAR: S1, S2 normal. ABDOMEN: Soft, nontender. No organomegaly or masses noted. EXTREMITIES: No clubbing or cyanosis noted. Trace edema present. NEUROLOGIC: Currently sedated on the vent. LABORATORY DATA: ABG shows a pH of 7.43, pCO2 of 33, pO2 115. Sodium 139, potassium 3.9, chloride 103, CO2 18, BUN 106, creatinine 5.36, glucose 91. WBC 10.9, hemoglobin 8.9, hematocrit 26.6, plate lets 333. Chest x-ray shows no significant changes. IMPRESSION: 1. Acute respiratory failure, hypoxemic. 2. Acute encephalopathy. 3. Likely pneumonia. 4. End-stage renal disease on hemodialysis. 5. History of cerebrovascular accident. 6. Dysphagia. 7. Transaminitis. 8. Hypertensive heart disease. 9. Status post pacemaker. RECOMMENDATIONS 1. Continue ventilator support for now. 2. Hemodialysis per nephrology. 3. Continue antibiotics for now, and check all cultures. 4. Followup LFTs. 5. Nutritional support. 6. We will not be able to obtain MRI of brain because the patient has a pacemaker. 7. Once the patient is more stable, we will obtain CT scan of the head. 8. Discussed with the staff in detail. 9. Forty minutes of critical care time spent with patient. Dictated By: LUIS ALFREDO WILLIAM MD, MA/DRE Conf#: [id number] DID#: [id number]
--- NOTE | 2016-11-11 10:46 | CONS ---
Date/Time of Note Date/Time of Note DATE: 11/11/16 TIME: 10:44 Assessment/Plan Assessment/Plan Additional Assessment/Plan 1. Altered mental status likely secondary to sepsis secondary to pneumonia. 2. Acute respiratory failure, on ventilator. 3. End-stage renal disease on hemodialysis. 4. History of previous stroke resulting in dysphagia status post G-tube placement for feeding purposes. 5. History of hypertension. 6. History of PEG tube placement and arteriovenous fistula for dialysis access. PLAN: IV abx for sepsis and PNA Vent managment as per Pulmonary plan for HD today will continue pt HD in hospital on MWF will continue to follow up Consultation Date/Type/Reason Admit Date/Time Nov 09, 2016 at 23:15 Initial Consult Date 11/10/2016 Type of Consultation: NEPHROLOGY Reason for Consultation ESRD pt on Hemodilyais presented with sepsis Referring Provider: FRANCK TROY MD 24 HR Interval Summary Free Text/Dictation pt remained in ICU on ventilator, BP stable, Plan for HD today, remains on ventilator Exam/Review of Systems Vital Signs Vitals Vital Signs Date Time Temp Pulse Resp B/P Pulse Ox O2 Delivery O2 Flow Rate FiO2 11/11/16 10:00 93 19 148/63 100 Mechanical Ventilator 11/11/16 08:00 98.2 11/11/16 05:20 30 Intake and Output 11/10/16 11/10/16 11/11/16 15:00 23:00 07:00 Intake Total 367 ml 464 ml 394 ml Balance 367 ml 464 ml 394 ml Exam HEENT: Intubated on ventilator. ET tube in place. NECK: Supple, no JVD. LUNGS: Bilateral coarse breath sounds. No wheezing. HEART: S1, S2, tachycardia. ABDOMEN: Soft, nontender, nondistended. Bowel sounds are present. G-tube in place, site is clear. EXTREMITIES: No clubbing, cyanosis, or edema. NEUROLOGICAL: Uncooperative for exam. Results Result Diagram: 11/11/16 0445 11/11/16 0445 Results 24 hrs Laboratory Tests Test 11/11/16 04:45 11/11/16 05:00 11/11/16 07:55 Alanine Aminotransferase (ALT/SGPT) 77 H Albumin 2.3 L Albumin/Globulin Ratio 0.62 Alkaline Phosphatase 131 H Anion Gap 22 H Aspartate Amino Transf (AST/SGOT) 78 H Basophils # 0.0 Basophils % 0.2 Blood Morphology Comment Blood Urea Nitrogen 106 H Calcium Level 8.4 Carbon Dioxide Level 18 L Chloride Level 103 Creatinine 5.38 H Direct Bilirubin 0.00 Eosinophils # 0.2 Eosinophils % 2.1 Globulin 3.70 H Glucose Level 91 Hematocrit 26.6 L Hemoglobin 8.9 L Indirect Bilirubin 0.0 Lymphocytes # 0.9 Lymphocytes % 7.9 L Mean Corpuscular Hemoglobin 30.6 Mean Corpuscular Hemoglobin Concent 33.6 Mean Corpuscular Volume 90.8 Mean Platelet Volume 8.3 # Monocytes # 1.4 H Monocytes % 13.0 H Neutrophils # 8.4 H Neutrophils % 76.8 Nucleated Red Blood Cells # 0.0 Nucleated Red Blood Cells % 0.0 Platelet Count 333 Potassium Level 3.9 Random Vancomycin Level 11.9 Red Blood Count 2.93 L Red Cell Distribution Width 16.0 H Sodium Level 139 Total Bilirubin 0.0 L Total Protein 6.0 L White Blood Count 10.9 H Arterial Blood HCO3 21.9 L Arterial Blood Base Excess -1.7 Arterial Blood Oxygen Saturation 97.8 Adam Test ACCEPTAB Arterial Blood Gas Puncture Site Right Radial Arterial Blood Carboxyhemoglobin 0.3 Arterial Blood Date Drawn 11/11/2016 4:50:37 AM Arterial Blood Methemoglobin 0.3 Arterial Blood pCO2 (Temp correct) 33.1 L Arterial Blood pH (Temp corrected) 7.439 Arterial Blood pO2 (Temp corrected) 115.4 H Blood Gas A-a O2 Differential 59.6 H Blood Gas Actual Respiration Rate 14 Blood Gas Inspiratory Pressure 19.0 Blood Gas Low PEEP Setting 5.0 Blood Gas Modality VENT - AC Blood Gas Notified Time 11/11/2016 5:23:21 AM Blood Gas Notified Whom MG Blood Gas Respiration Rate 14.0 Blood Gas Specimen Source Blood arterial Blood Gas Temperature 37.0 Blood Gas Tidal Volume 500.0 FiO2 30.0 Oxyhemoglobin Percent 97.2 Total Hemoglobin 9.9 L Lactic Acid Level 0.7 Thyroid Stimulating Hormone (TSH) 2.270 Medications Medications Current Medications Sodium Chloride (1/2 NS) 1,000 ml @ 30 mls/hr Q24H IV Last administered on t 06:09; Admin Dose 30 MLS/HR; Start 11/09/16 at 23:07 Ondansetron HCl (Zofran Inj) 4 mg Q6H PRN IV NAUSEA AND/OR VOMITING; Start 07/16 at 23:30 Morphine Sulfate (morphine) 2 mg Q4H PRN IV SEVERE PAIN LEVEL 7-10; Start 11/09 at 23:30 Pantoprazole (Protonix Iv) 40 mg DAILY@06 IV Last administered on 11/11/16 06: 07; Admin Dose 40 MG; Start 11/10/16 at 06:00 Clopidogrel Bisulfate (plaVIX) 75 mg DAILY GTB Last administered on 11/11/16 10:26; Admin Dose 75 MG; Start 11/10/16 at 09:00 Warfarin Sodium 2 mg 2 mg DAILY@17 GTB Last administered on 11/10/16 17:59; Admin Dose 2 MG; Start 11/10/16 at 17:00 Norepinephrine 16 mg/Dextrose 500 ml @ 1.87 mls/hr TITRATE IV ; Start 11/10/16 at 09:00 Fentanyl 100 ml @ 2.5 mls/hr TITRATE IV Last administered on 11/11/16 06:08; Admin Dose 1 MLS/HR; Start 11/10/16 at 03:30 Midazolam HCl 50 ml @ 1 mls/hr TITRATE IV Last administered on 11/10/16 09:57 ; Admin Dose 3 MLS/HR; Start 11/10/16 at 03:30 Piperacillin Sod/ Tazobactam Sod (Zosyn 2.25gm/ 50ml (Pmx)) 50 ml @ 100 mls/hr Q8 IVPB Last administered on 11/11/16 06:07; Admin Dose 100 MLS/HR; Start 08/16 at 14:00 Miscellaneous Information RANDOM VANCOMYCIN LEVEL 2... ONCE ONCE XX Last administered on 11/11/16 05:37; Admin Dose 1 EA; Start 11/11/16 at 05:00; Stop 11/11/16 at 05:01 Vancomycin HCl (Vancocin) 250 ml @ 125 mls/hr 11 IVPB Last administered on 10:26; Admin Dose 125 MLS/HR; Start 11/11/16 at 11:00; Stop 11/11/16 at 23:00 MARTINEZ WEST MD Nov 11, 2016 10:46
[2016-11-11] MEDS ORDERED: VANCOMYCIN 1 GM in NS 250 ML IVPB SCH (11:00)
[2016-11-11] MEDS: WARFARIN 2 MG TAB GTB SCH (17:19)
[2016-11-12] VITALS (80 sets, daily range): BP systolic 108–182; BP diastolic 54–95; PULSE 82–119; RESP 9–28
[2016-11-12] MEDS: FENTAnyl (DRIP) 1000 mcg/100mL 100 ML IV SCH (00:57)
[2016-11-12] MEDS: PIPER-TAZO 2.25 GM (PMX) 50 ML IVPB SCH ×3 (05:46→21:11)
[2016-11-12] MEDS: PANTOPRAZOLE 40 MG INJ IV SCH (05:46)
[2016-11-12 07:04] LABS: INR 2.36; PROTIME 26.1 Sec (12.2-14.2)
[2016-11-12 08:29] LABS: BASOPHILS % 0.2 % (0.0-2.0); HEMATOCRIT 26.6 % (42.0-52.0); LYMPHOCYTES # 0.8 10^3/ul (0.8-2.9); LYMPHOCYTES % 9.1 % (15.0-51.0); MEAN CORPUSCULAR HGB CONC 33.7 g/dl (32.0-37.0); MEAN CORPUSCULAR VOLUME 91.9 fl (82.0-101.0); MEAN PLATELET VOLUME 7.8 fl (7.4-10.4); MONOCYTE # 1.4 10^3/ul (0.3-0.9); MONOCYTES % 15.8 % (0.0-11.0); NEUTROPHIL # 6.7 10^3/ul (1.6-7.5); NEUTROPHILS % 74.9 % (39.0-77.0); PLATELET COUNT 404 10^3/UL (140-440); RED BLOOD COUNT 2.89 10^6/ul (4.70-6.10); RED CELL DISTRIBUTION WIDTH 16.5 % (11.5-14.5); UNCORRECTED WBC 8.9 10^3/ul (4.8-10.8); WHITE BLOOD COUNT 8.9 10^3/ul (4.8-10.8)
[2016-11-12 08:33] LABS: CONDITION 1; LH ANALYZER COMMENTS 1
[2016-11-12 08:50] LABS: CALCIUM 7.8 mg/dl (8.4-10.2); CREATININE 3.47 mg/dl (0.61-1.24)
[2016-11-12 08:54] LABS: POTASSIUM 2.9 mmol/L (3.5-5.1)
[2016-11-12] MEDS: CLOPIDOGREL 75 MG TAB GTB SCH (09:03)
[2016-11-12] MEDS ORDERED: LIDOCAINE 1% (MDV) 20 ML INJ SC ONE (10:30)
[2016-11-12] MEDS ORDERED: POTASSIUM CHLORIDE 20 MEQ in SOD CHLORIDE 0.9% 100 ML IVPB ONE (11:00)
--- NOTE | 2016-11-12 11:41 | PN ---
DATE: 11/12/2016 SUBJECTIVE: Patient, Marlon, remains stable at his baseline according to his daughter who is at bedside. The patient opens his eyes, not following commands. PHYSICAL EXAMINATION: VITAL SIGNS: Temperature 98, pulse 94, blood pressure 123/58, O2 saturation 96%, FIO2 of 30%, orall y intubated. NECK: Supple, no JVD or lymphadenopathy. CARDIAC: S1, S2, no added sounds or murmurs. CHEST: Diminished air entry bilaterally. ABDOMEN: Soft, nontender. EXTREMITIES: No cyanosis, clubbing or edema. NEUROLOGIC: Generalized weakness. LABORATORY DATA: White count 8.9, hemoglobin 9.0, platelets of 404. Sodium 149, potassium 2.9, BUN 49, creatinine 3.47. IMAGING: Chest x-ray showed no significant infiltrates or effusions. IMPRESSION: 1. End-stage renal failure on hemodialysis. 2. Chronic encephalopathy. 3. Possible aspiration pneumonitis. 4. History of cerebrovascular accident. PLAN: 1. Continue hemodialysis as tolerated. 2. CPAP, weaning trial today. 3. Aspiration precautions. 4. Tube feeding as tolerated. 5. DVT and GI prophylaxis. I had a long discussion with the patient's daughter at bedside who is a registered respiratory thera pist and she states that this is his baseline condition. Normally he is able to protect his airway and swallow safely. Dictated By: MELISSA FRANCES/DRE Conf#: [id number] DID#: [id number]
--- NOTE | 2016-11-12 13:46 | CONS ---
Date/Time of Note Date/Time of Note DATE: 11/12/16 TIME: 13:45 Assessment/Plan Assessment/Plan Additional Assessment/Plan 1. Altered mental status likely secondary to sepsis secondary to pneumonia. 2. Acute respiratory failure, on ventilator. 3. End-stage renal disease on hemodialysis. 4. History of previous stroke resulting in dysphagia status post G-tube placement for feeding purposes. 5. History of hypertension. 6. History of PEG tube placement and arteriovenous fistula for dialysis access. PLAN: IV abx for sepsis and PNA Vent managment as per Pulmonary plan for HD today will continue pt HD in hospital on MWF will continue to follow up OK for PICC Line due to very poor peripheral IV access pt needs pressors and IV fluid resuscitation for sepsis Consultation Date/Type/Reason Admit Date/Time Nov 09, 2016 at 23:15 Initial Consult Date 11/10/2016 Type of Consultation: NEPHROLOGY Referring Provider: FRANCK TROY MD 24 HR Interval Summary Free Text/Dictation Plan for HD today,ok to have PICC line for difficult IV access Exam/Review of Systems Vital Signs Vitals Vital Signs Date Time Temp Pulse Resp B/P Pulse Ox O2 Delivery O2 Flow Rate FiO2 11/12/16 13:34 98 14 100 30 11/12/16 13:30 147/81 Mechanical Ventilator 11/12/16 12:00 99.2 Intake and Output 11/11/16 11/11/16 11/12/16 15:00 23:00 07:00 Intake Total 1078.0 ml 462 ml 430.0 ml Output Total 2500 ml Balance -1422.0 ml 462 ml 430.0 ml Exam orally intubated. NECK: Supple, no JVD or lymphadenopathy. CARDIAC: S1, S2, no added sounds or murmurs. CHEST: Diminished air entry bilaterally. ABDOMEN: Soft, nontender. EXTREMITIES: No cyanosis, clubbing or edema. NEUROLOGIC: Generalized weakness. Results Result Diagram: 11/12/16 0607 11/12/16 0607 Results 24 hrs Laboratory Tests Test 11/12/16 06:05 11/12/16 06:07 INR International Normalized Ratio 2.36 Prothrombin Time 26.1 #H Prothrombin Time Ratio 2.0 Anion Gap 21 H Basophils # 0.0 Basophils % 0.2 Blood Morphology Comment Blood Urea Nitrogen 49 #H Calcium Level 7.8 L Carbon Dioxide Level 24 Chloride Level 107 Creatinine 3.47 #H Eosinophils # 0.0 Eosinophils % 0.0 Glucose Level 93 Hematocrit 26.6 L Hemoglobin 9.0 L Lymphocytes # 0.8 Lymphocytes % 9.1 L Mean Corpuscular Hemoglobin 31.0 Mean Corpuscular Hemoglobin Concent 33.7 Mean Corpuscular Volume 91.9 Mean Platelet Volume 7.8 Monocytes # 1.4 H Monocytes % 15.8 H Neutrophils # 6.7 Neutrophils % 74.9 Nucleated Red Blood Cells # 0.0 Nucleated Red Blood Cells % 0.0 Platelet Count 404 # Potassium Level 2.9 *L Red Blood Count 2.89 L Red Cell Distribution Width 16.5 H Sodium Level 149 H White Blood Count 8.9 Medications Medications Current Medications Sodium Chloride (1/2 NS) 1,000 ml @ 30 mls/hr Q24H IV Last administered on 06:09; Admin Dose 30 MLS/HR; Start 11/09/16 at 23:07 Ondansetron HCl (Zofran Inj) 4 mg Q6H PRN IV NAUSEA AND/OR VOMITING; Start 07/16 at 23:30 Morphine Sulfate (morphine) 2 mg Q4H PRN IV SEVERE PAIN LEVEL 7-10; Start 11/09 at 23:30 Pantoprazole (Protonix Iv) 40 mg DAILY@06 IV Last administered on 11/12/16 05: 46; Admin Dose 40 MG; Start 11/10/16 at 06:00 Clopidogrel Bisulfate (plaVIX) 75 mg DAILY GTB Last administered on 11/12/16 09:03; Admin Dose 75 MG; Start 11/10/16 at 09:00 Warfarin Sodium 2 mg 2 mg DAILY@17 GTB Last administered on 11/11/16 17:19; Admin Dose 2 MG; Start 11/10/16 at 17:00 Norepinephrine 16 mg/Dextrose 500 ml @ 1.87 mls/hr TITRATE IV ; Start 11/10/16 at 09:00 Fentanyl 100 ml @ 2.5 mls/hr TITRATE IV Last administered on 11/12/16 00:57; Admin Dose 2.5 MLS/HR; Start 11/10/16 at 03:30 Midazolam HCl 50 ml @ 1 mls/hr TITRATE IV Last administered on 11/10/16 09:57 ; Admin Dose 3 MLS/HR; Start 11/10/16 at 03:30 Piperacillin Sod/ Tazobactam Sod (Zosyn 2.25gm/ 50ml (Pmx)) 50 ml @ 100 mls/hr Q8 IVPB Last administered on 11/12/16t 05:46; Admin Dose 100 MLS/HR; Start 08/16 at 14:00 MARTINEZ WEST MD Nov 12, 2016 13:46
[2016-11-12] MEDS ORDERED: COLLAGENASE 30 GM TUBE TOP ONE (14:00)
--- NOTE | 2016-11-12 14:36 | PN ---
Date/Time of Note Date/Time of Note DATE: 11/12/16 TIME: 13:59 Assessment/Plan VTE Prophylaxis VTE Prophylaxis Intervention: other (Coumadin) Lines/Catheters IV C[facility] Type ([facility] Peripheral IV Urinary Cath still in place: No Assessment/Plan Chief Complaint/Hosp Course S: 11/12- Tolerating feeds @10. Family wants IV placed in leg instead of PICC, which is not the best/recommended care. Weaning on vent. Still encephalopathic/ apparently at baseline neurologically according the family. O: vss Tm 99 PE No pallor adenopathy icterus. Oral ETT C/D/I Reg, no m/r/g Dimin at bases Bs + nt, nd; no r/r/g. Peg C/D/I + hypotonia; contractures unable to really appreciate reflexes; lt AVf c/d/i A/P 1. Severe sepsis: Encephalopathy w rt lower lobe pneumonia. Stable cont atb's 2. Pneumonia likely strep/aspiration 3. Dysphagia? 10/19/16- peg 4. Ischemic stroke '; on Plavix 5. Probable vascular dementia 6. ESRD mwf HD 7. Functional quadriplegia? 8. Lower ext edema, ro DVT 9. Malnutrition. Cont feeds and free water. 10. Constipation 11. Pul Nodule 8 mm pleural; may continue surveillance although not a surgical candidate 12. Abn LFTs; viral process vs statin? 13. Ac toxic encephalopathy/delirium on top of vascular dementia 14. Htn 15. AICD status? 16. LV clot; on coumadin- [facility] 17. CAD/ pci- 5stents; Ho VFib/ VT arrest/ AICD 18. Recent URI 19. Anemia; ho transfusion/ platlets in September. Problems: Exam/Review of Systems Vital Signs Vitals Vital Signs Date Time Temp Pulse Resp B/P Pulse Ox O2 Delivery O2 Flow Rate FiO2 11/12/16 13:34 98 14 100 30 11/12/16 13:30 147/81 Mechanical Ventilator 11/12/16 12:00 99.2 Intake and Output 11/11/16 11/11/16 11/12/16 15:00 23:00 07:00 Intake Total 1078.0 ml 462 ml 440.0 ml Output Total 2500 ml Balance -1422.0 ml 462 ml 440.0 ml Results Result Diagram: 11/12/16 0607 11/12/16 0607 Results 24 hrs Laboratory Tests Test 11/12/16 06:05 11/12/16 06:07 INR International Normalized Ratio 2.36 Prothrombin Time 26.1 #H Prothrombin Time Ratio 2.0 Anion Gap 21 H Basophils # 0.0 Basophils % 0.2 Blood Morphology Comment Blood Urea Nitrogen 49 #H Calcium Level 7.8 L Carbon Dioxide Level 24 Chloride Level 107 Creatinine 3.47 #H Eosinophils # 0.0 Eosinophils % 0.0 Glucose Level 93 Hematocrit 26.6 L Hemoglobin 9.0 L Lymphocytes # 0.8 Lymphocytes % 9.1 L Mean Corpuscular Hemoglobin 31.0 Mean Corpuscular Hemoglobin Concent 33.7 Mean Corpuscular Volume 91.9 Mean Platelet Volume 7.8 Monocytes # 1.4 H Monocytes % 15.8 H Neutrophils # 6.7 Neutrophils % 74.9 Nucleated Red Blood Cells # 0.0 Nucleated Red Blood Cells % 0.0 Platelet Count 404 # Potassium Level 2.9 *L Red Blood Count 2.89 L Red Cell Distribution Width 16.5 H Sodium Level 149 H White Blood Count 8.9 Medications Medications Current Medications Sodium Chloride (1/2 NS) 1,000 ml @ 30 mls/hr Q24H IV Last administered on 06:09; Admin Dose 30 MLS/HR; Start 11/09/16 at 23:07 Ondansetron HCl (Zofran Inj) 4 mg Q6H PRN IV NAUSEA AND/OR VOMITING; Start 07/16 at 23:30 Morphine Sulfate (morphine) 2 mg Q4H PRN IV SEVERE PAIN LEVEL 7-10; Start 11/09 at 23:30 Pantoprazole (Protonix Iv) 40 mg DAILY@06 IV Last administered on 11/12/16 05: 46; Admin Dose 40 MG; Start 11/10/16 at 06:00 Clopidogrel Bisulfate (plaVIX) 75 mg DAILY GTB Last administered on 11/12/16 09:03; Admin Dose 75 MG; Start 11/10/16 at 09:00 Warfarin Sodium 2 mg 2 mg DAILY@17 GTB Last administered on 11/11/16 17:19; Admin Dose 2 MG; Start 11/10/16 at 17:00 Norepinephrine 16 mg/Dextrose 500 ml @ 1.87 mls/hr TITRATE IV ; Start 11/10/16 at 09:00 Fentanyl 100 ml @ 2.5 mls/hr TITRATE IV Last administered on 11/12/16 00:57; Admin Dose 2.5 MLS/HR; Start 11/10/16 at 03:30 Midazolam HCl 50 ml @ 1 mls/hr TITRATE IV Last administered on 11/10/16 09:57 ; Admin Dose 3 MLS/HR; Start 11/10/16 at 03:30 Piperacillin Sod/ Tazobactam Sod (Zosyn 2.25gm/ 50ml (Pmx)) 50 ml @ 100 mls/hr Q8 IVPB Last administered on 11/12/16 05:46; Admin Dose 100 MLS/HR; Start 08/16 at 14:00 ALICIA CODY MD Nov 12, 2016 14:36
[2016-11-12] MEDS: LACTOBACILLUS CHEW TAB PO SCH ×2 (15:06→22:02)
--- NOTE | 2016-11-12 15:17 | RADRPT ---
PROCEDURE: US Lower extremity Venous. CLINICAL INDICATION: Lower extremity pain and swelling TECHNIQUE: Multiple sonographic images of the bilateral lower extremity deep venous system was obt ained utilizing grayscale, color-flow, compressive sonography and doppler imaging with augmentation. The images were reviewed on a PACS workstation. COMPARISON: None. FINDINGS: There is normal compressibility and flow within the bilateral common femoral, superficial femoral an d popliteal veins. Flow is seen in the posterior tibial and peroneal veins. A 2.7 x 2.4 x 4.1 cm cyst containing a small amount of echogenic debris is identified in the left po pliteal fossa. IMPRESSION: No sonographic evidence for deep venous thrombosis. 4.1 cm cyst containing echogenic debris in the left popliteal fossa. This may reflect a mildly comp kailee Ford's cyst. If further characterization is needed CT or MRI can be considered. RPTAT: AA .Roshan Licea MD, MD Date Time Electronically viewed and signed by .Roshan Licea MD, MD on 11/12/2016 15:17 .P/
[2016-11-12] MEDS: WARFARIN 2 MG TAB GTB SCH (17:32)
--- NOTE | 2016-11-12 21:36 | RADRPT ---
PROCEDURE: US Abdomen. CLINICAL INDICATION: Elevated laboratory tests. Type not stated. TECHNIQUE: Multiple real-time images were acquired of the patient's abdomen and retroperitoneum ut ilizing a high resolution transducer. COMPARISON: No. FINDINGS: The pancreas is obscured by bowel gas. The liver measures 13.1 cm in length. No hepatic mass or intrahepatic biliary ductal dilatation is identified. The hepatic and portal veins are patent. The gallbladder wall measures 2.2 mm. There is no evidence of cholelithiasis. There is a small echogenic right kidney which contains multiple cysts. The left kidney and spleen a re not evaluated. The abdominal aorta is not evaluated. IMPRESSION: 1. The liver and gallbladder are unremarkable. 2. Small echogenic right kidney containing multiple benign renal cysts. The largest benign cyst is in the inferior pole measuring 3.3 cm. 3. The pancreas, spleen and left kidney are not evaluated. RPTAT:AAJJ Physician Don Date Time Electronically viewed and signed by Physician Don on 11/12/2016 21:36 MICHAELA/
[2016-11-12] MEDS: SENNA/DOCUSATE NA (8.6MG/50MG) TAB GTB SCH (22:02)
[2016-11-12 23:14] LABS: AADO2 Arterial 61.9 mmHg (7.0-24.0); Allen Test ACCEPTAB; Arterial Base Excess 5.6 mmol/L (-3.0-3); Arterial COHb 0.3 % (0.0-3.0); Arterial Fraction of Oxyhgb 97.3 % (93.0-99.0); Arterial HCO3 28.7 mmol/L (22.0-26.0); Arterial MetHb 0.3 % (0.0-1.5); Arterial Total Hemglobin 10.3 g/dl (12.0-18.0); Blood Gas PS 10; MODE VENT - PSV
[2016-11-13] VITALS (69 sets, daily range): BP systolic 69–181; BP diastolic 52–116; PULSE 73–109; RESP 7–30
[2016-11-13] MEDS: PIPER-TAZO 2.25 GM (PMX) 50 ML IVPB SCH ×3 (05:52→21:02)
[2016-11-13] MEDS: LANSOPRAZOLE 30 MG CAP GTB SCH (05:52)
[2016-11-13] MEDS: FENTAnyl (DRIP) 1000 mcg/100mL 100 ML IV SCH (06:09)
[2016-11-13 07:13] LABS: BASOPHILS % 0.5 % (0.0-2.0); HEMATOCRIT 26.9 % (42.0-52.0); LYMPHOCYTES # 1.2 10^3/ul (0.8-2.9); LYMPHOCYTES % 13.7 % (15.0-51.0); MEAN CORPUSCULAR HEMOGLOBIN 30.9 pg (29.0-33.0); MEAN CORPUSCULAR HGB CONC 33.6 g/dl (32.0-37.0); MEAN PLATELET VOLUME 7.8 fl (7.4-10.4); MONOCYTE # 1.4 10^3/ul (0.3-0.9); MONOCYTES % 16.6 % (0.0-11.0); NEUTROPHIL # 5.9 10^3/ul (1.6-7.5); NEUTROPHILS % 69.2 % (39.0-77.0); PLATELET COUNT 387 10^3/UL (140-440); RED BLOOD COUNT 2.93 10^6/ul (4.70-6.10); RED CELL DISTRIBUTION WIDTH 16.6 % (11.5-14.5); UNCORRECTED WBC 8.6 10^3/ul (4.8-10.8); WHITE BLOOD COUNT 8.6 10^3/ul (4.8-10.8)
[2016-11-13 07:14] LABS: INR 2.22; PROTIME 24.9 Sec (12.2-14.2); PT RATIO 1.9
[2016-11-13 07:20] LABS: ALBUMIN 2.4 g/dl (3.3-4.9)
[2016-11-13 07:21] LABS: POTASSIUM 3.4 mmol/L (3.5-5.1)
[2016-11-13 07:22] LABS: IRON 27 ug/dl (35-150)
[2016-11-13 07:23] LABS: ALBUMIN/GLOBULIN RATIO 0.63; CREATININE 3.18 mg/dl (0.61-1.24); TOTAL PROTEIN 6.2 g/dl (6.1-8.1)
[2016-11-13 07:24] LABS: CALCIUM 8.7 mg/dl (8.4-10.2); MAGNESIUM 2.2 mg/dl (1.7-2.5); PHOSPHORUS 3.3 mg/dl (2.5-4.9)
[2016-11-13 07:31] LABS: TOTAL IRON BINDING CAPACITY 131 ug/dl (241-421)
[2016-11-13 07:35] LABS: CONDITION 1; LH ANALYZER COMMENTS 1
[2016-11-13 07:55] LABS: Allen Test ACCEPTAB; Arterial Base Excess 5.8 mmol/L (-3.0-3); Arterial COHb 0.3 % (0.0-3.0); Arterial Fraction of Oxyhgb 97.3 % (93.0-99.0); Arterial HCO3 29.5 mmol/L (22.0-26.0); Arterial MetHb 0.5 % (0.0-1.5); Arterial Total Hemglobin 8.3 g/dl (12.0-18.0); MODE VENT - AC
[2016-11-13] MEDS: LISINOPRIL 5 MG TAB GTB SCH ×2 (09:00→11:10)
[2016-11-13] MEDS: CLOPIDOGREL 75 MG TAB GTB SCH ×2 (09:00→11:10)
[2016-11-13] MEDS: LACTOBACILLUS CHEW TAB PO SCH ×2 (09:44→21:02)
--- NOTE | 2016-11-13 09:52 | RADRPT ---
PROCEDURE: XR Chest. CLINICAL INDICATION: Shortness of breath. TECHNIQUE: Single frontal view. COMPARISON: 11/11/2016. FINDINGS: The endotracheal tube and implanted cardiac defibrillator remain in position. The heart size is nor mal. There is calcification in the aorta consistent with atherosclerosis. There is mild left basilar atelectasis. The lungs are otherwise clear. There is no pleural effusion. There is no pneumothorax. IMPRESSION: 1. Mild left basilar atelectasis. 2. No other change from 11/11/2016. RPTAT: QQ .Refugio Dai MD, MD Date Time Electronically viewed and signed by .Refugio Dai MD, MD on 11/13/2016 09:52 .R/
--- NOTE | 2016-11-13 11:27 | PN ---
DATE: 11/13/2016 SUBJECTIVE: Patient remains stable. This morning he is having hemodialysis with final removal of 2 .5 liters of fluid. Neurologically, he remains unchanged. Hemodynamically he remains stable, not r equiring vasopressor support. VITAL SIGNS: Temperature 99, pulse is 105, blood pressure 145/86, O2 saturation 96%, FIO2 of 40%, o rally intubated. HEENT: Dry mucous membranes. Pupils equal and reactive to light. CARDIAC: S1, S2, no added sounds or murmurs. CHEST: Diminished air entry to both lung bases. ABDOMEN: Mildly distended but soft. EXTREMITIES: No cyanosis, clubbing, 1+ edema. NEUROLOGIC: Generalized weakness. LABORATORY DATA: White count 8.6, hemoglobin 9, platelets of 387. BUN 35, creatinine 3.18. ABG: pH 7.49, pCO2 of 39, PaO2 of 120. INR was 2.2. Hepatitis A, B and C were unremarkable. IMAGING: Chest x-ray was reviewed, shows mild left basilar atelectasis. IMPRESSION AND PLAN: 1. Hypoxemic respiratory failure, possible aspiration component. 2. History of dementia. 3. End-stage renal failure on hemodialysis. 4. History of cerebrovascular accident. 5. History of coronary artery disease with ventricular fibrillation, V-tach arrest, AICD in place. The patient will require: 1. Hemodialysis with volume removal. 2. CPAP weaning trial today. 3. Aspiration precautions. Speech therapy evaluation. 4. DVT and GI prophylaxis. Dictated By: MELISSA FRANCES/DRE Conf#: [id number] DID#: [id number]
--- NOTE | 2016-11-13 11:53 | CONS ---
Date/Time of Note Date/Time of Note DATE: 11/13/16 TIME: 11:49 Assessment/Plan Assessment/Plan Additional Assessment/Plan 1. Altered mental status likely secondary to sepsis secondary to pneumonia. 2. Acute respiratory failure, on ventilator. 3. End-stage renal disease on hemodialysis. 4. History of previous stroke resulting in dysphagia status post G-tube placement for feeding purposes. 5. History of hypertension. 6. History of PEG tube placement and arteriovenous fistula for dialysis access. PLAN: IV abx for sepsis and PNA Vent managment as per Pulmonary plan for HD today then we will pt on MWF shcedule while being in hospital will continue to follow up [place] for PICC Line due to very poor peripheral IV access pt needs pressors and IV fluid resuscitation for sepsis Consultation Date/Type/Reason Admit Date/Time Nov 09, 2016 at 23:15 Initial Consult Date 11/10/2016 Type of Consultation: NEPHROLOGY Reason for Consultation ESRD on HD with septic shock with fluid overload Referring Provider: FRANCK TROY MD 24 HR Interval Summary Free Text/Dictation s/p HD yesterdfay still very edematous and fluid overloaded, Plan for another extra HD today, , remains intubated Exam/Review of Systems Vital Signs Vitals Vital Signs Date Time Temp Pulse Resp B/P Pulse Ox O2 Delivery O2 Flow Rate FiO2 11/13/16 10:32 106 18 11/13/16 10:15 96/70 100 Mechanical Ventilator 11/13/16 08:00 30 11/13/16 08:00 99.0 Intake and Output 11/12/16 11/12/16 11/13/16 15:00 23:00 07:00 Intake Total 644 ml 724 ml 771 ml Output Total 100 ml 4580 ml Balance 544 ml -3856 ml 771 ml Exam orally intubated. NECK: Supple, no JVD or lymphadenopathy. CARDIAC: S1, S2, no added sounds or murmurs. CHEST: Diminished air entry bilaterally. ABDOMEN: Soft, nontender. EXTREMITIES: No cyanosis, clubbing or edema. left forearm aVF with good thrill and bruit Results Result Diagram: 11/13/16 0530 11/13/16 0532 Results 24 hrs Laboratory Tests Test 11/12/16 23:00 11/13/16 05:30 11/13/16 05:32 11/13/16 05:33 Arterial Blood HCO3 28.7 H Arterial Blood Base Excess 5.6 H Arterial Blood Oxygen Saturation 97.9 Adam Test ACCEPTAB Arterial Blood Gas Puncture Site Right Radial Arterial Blood Carboxyhemoglobin 0.3 Arterial Blood Date Drawn 11/12/2016 11:08:21 PM Arterial Blood Methemoglobin 0.3 Arterial Blood pCO2 (Temp correct) 36.3 Arterial Blood pH (Temp corrected) 7.516 H Arterial Blood pO2 (Temp corrected) 109.4 H Blood Gas A-a O2 Differential 61.9 H Blood Gas Actual Respiration Rate 24 Blood Gas Low PEEP Setting 5.0 Blood Gas Modality VENT - PSV Blood Gas Notified Time 11/12/2016 11:13:43 PM Blood Gas Notified Whom BR Blood Gas Pressure Support 10 Blood Gas Specimen Source Blood arterial Blood Gas Temperature 37.0 FiO2 30.0 Oxyhemoglobin Percent 97.3 Total Hemoglobin 10.3 L Basophils # 0.0 Basophils % 0.5 Blood Morphology Comment Eosinophils # 0.0 Eosinophils % 0.0 Hematocrit 26.9 L Hemoglobin 9.0 L Lipase 107 Lymphocytes # 1.2 Lymphocytes % 13.7 L Mean Corpuscular Hemoglobin 30.9 Mean Corpuscular Hemoglobin Concent 33.6 Mean Corpuscular Volume 92.0 Mean Platelet Volume 7.8 Monocytes # 1.4 H Monocytes % 16.6 H Neutrophils # 5.9 Neutrophils % 69.2 Nucleated Red Blood Cells # 0.0 Nucleated Red Blood Cells % 0.0 Platelet Count 387 Red Blood Count 2.93 L Red Cell Distribution Width 16.6 H White Blood Count 8.6 Alanine Aminotransferase (ALT/SGPT) 61 Albumin 2.4 L Albumin/Globulin Ratio 0.63 Alkaline Phosphatase 152 H Anion Gap 12 # Aspartate Amino Transf (AST/SGOT) 51 H Blood Urea Nitrogen 35 #H Calcium Level 8.7 Carbon Dioxide Level 31 Chloride Level 105 Creatinine 3.18 H Direct Bilirubin 0.00 Globulin 3.80 H Glucose Level 94 INR International Normalized Ratio 2.22 Indirect Bilirubin 0.0 Magnesium Level 2.2 Phosphorus Level 3.3 Potassium Level 3.4 L Prothrombin Time 24.9 H Prothrombin Time Ratio 1.9 Sodium Level 145 H Total Bilirubin 0.0 L Total Protein 6.2 Iron Level 27 L Percent Iron Saturation 21 L Total Iron Binding Capacity 131 L Test 11/13/16 07:00 Arterial Blood HCO3 29.5 H Arterial Blood Base Excess 5.8 H Arterial Blood Oxygen Saturation 98.1 H Adam Test ACCEPTAB Arterial Blood Gas Puncture Site Right Radial Arterial Blood Carboxyhemoglobin 0.3 Arterial Blood Date Drawn 11/13/2016 7:27:49 AM Arterial Blood Methemoglobin 0.5 Arterial Blood pCO2 (Temp correct) 39.0 Arterial Blood pH (Temp corrected) 7.496 H Arterial Blood pO2 (Temp corrected) 120.1 H Blood Gas A-a O2 Differential 48.0 H Blood Gas Actual Respiration Rate 14 Blood Gas Low PEEP Setting 5.0 Blood Gas Modality VENT - AC Blood Gas Notified Time 11/13/2016 7:55:30 AM Blood Gas Notified Whom JLD Blood Gas Respiration Rate 14.0 Blood Gas Specimen Source Blood arterial Blood Gas Temperature 37.0 Blood Gas Tidal Volume 500.0 FiO2 30.0 Oxyhemoglobin Percent 97.3 Total Hemoglobin 8.3 L Medications Medications Current Medications Ondansetron HCl (Zofran Inj) 4 mg Q6H PRN IV NAUSEA AND/OR VOMITING; Start 07/16 at 23:30 Morphine Sulfate (morphine) 2 mg Q4H PRN IV SEVERE PAIN LEVEL 7-10; Start 11/09 at 23:30 Clopidogrel Bisulfate (plaVIX) 75 mg DAILY GTB Last administered on 11/13/16 11:10; Admin Dose 75 MG; Start 11/10/16 at 09:00 Warfarin Sodium 2 mg 2 mg DAILY@17 GTB Last administered on 11/12/16 17:32; Admin Dose 2 MG; Start 11/10/16 at 17:00 Norepinephrine 16 mg/Dextrose 500 ml @ 1.87 mls/hr TITRATE IV ; Start 11/10/16 at 09:00 Fentanyl 100 ml @ 2.5 mls/hr TITRATE IV Last administered on 11/13/16 06:09; Admin Dose 3 MLS/HR; Start 11/10/16 at 03:30 Midazolam HCl 50 ml @ 1 mls/hr TITRATE IV Last administered on 11/10/16 09:57 ; Admin Dose 3 MLS/HR; Start 11/10/16 at 03:30 Piperacillin Sod/ Tazobactam Sod (Zosyn 2.25gm/ 50ml (Pmx)) 50 ml @ 100 mls/hr Q8 IVPB Last administered on 11/13/16 05:52; Admin Dose 100 MLS/HR; Start 08/16 at 14:00 Lansoprazole (Prevacid) 30 mg DAILY@06 GTB Last administered on 11/13/16 05:52 ; Admin Dose 30 MG; Start 11/13/16 at 06:00 Lactobacillus Acidoph/Bulgaricus (Floranex) 1 tab BID PO Last administered on 09:44; Admin Dose 1 TAB; Start 11/12/16 at 14:00 Senna/Docusate Sodium (Senokot-S) 2 tab HS GTB Last administered on 11/12/16 22:02; Admin Dose 2 TAB; Start 11/12/16 at 21:00 Carvedilol (Coreg) 3.125 mg BID GTB Last administered on 11/13/16 11:10; Admin Dose 3.125 MG; Start 11/12/16 at 21:00 Lisinopril (Zestril) 2.5 mg DAILY GTB Last administered on 11/13/16 11:10; Admin Dose 2.5 MG; Start 11/13/16 at 09:00 Miscellaneous Information (*Rx Drug Level Order Reminder*) 1 ONCE ONCE XX ; Start 11/14/16 at 05:00; Stop 11/14/16 at 05:01 MARTINEZ WEST MD Nov 13, 2016 11:53
--- NOTE | 2016-11-13 12:35 | PN ---
Date/Time of Note Date/Time of Note DATE: 11/13/16 TIME: 12:32 Assessment/Plan VTE Prophylaxis VTE Prophylaxis Intervention: LMWH Lines/Catheters [facility] Saline Lock Urinary Cath still in place: No Assessment/Plan Chief Complaint/Hosp Course S: 11/12- Tolerating feeds @10. Family wants IV placed in leg instead of PICC, which is not the best/recommended care. Weaning on vent. Still encephalopathic/ apparently at baseline neurologically according the family. 11/13-still weaning off vent. For hd today. no family at bedside O: vss PE No pallor. Oral ett C/D/I Reg, no m/r/g Dimin at bases Bs + nt, nd; no r/r/g. Peg C/D/I + hypotonia; contractures unable to really appreciate reflexes; lt AVf + thrill A/P 1. Severe sepsis: Encephalopathy w rt lower lobe pneumonia/pneumonitis. Stable cont pulmonary hygiene/ atb's 2. Pneumonia likely strep/aspiration; recurrent risks explained to daughter; recommended DNR 3. Dysphagia? 10/19/16- peg 4. Ischemic stroke '; on Plavix 5. Probable vascular dementia 6. ESRD mwf HD 7. Functional quadriplegia? 8. Lower ext edema, -hypotonia; Ford's cyst? 9. Malnutrition. Cont feeds and free water. 10. Constipation 11. Pul Nodule 8 mm pleural; may continue surveillance although not a surgical candidate 12. Abn LFTs; viral process vs statin? No evidence of cholecystitis. 13. Ac toxic encephalopathy/delirium on top of vascular dementia 14. Htn 15. AICD 16. LV clot; on coumadin- [facility] 17. CAD/ pci- 5stents; Ho VFib/ VT arrest/ AICD 18. Recent URI 19. Anemia; ho transfusion/ platlets in September. . Ford's cyst Problems: Exam/Review of Systems Vital Signs Vitals Vital Signs Date Time Temp Pulse Resp B/P Pulse Ox O2 Delivery O2 Flow Rate FiO2 11/13/16 10:50 103 23 100 30 11/13/16 10:15 96/70 Mechanical Ventilator 11/13/16 08:00 99.0 Intake and Output 11/12/16 11/12/16 11/13/16 14:59 22:59 06:59 Intake Total 404 ml 899 ml 824 ml Output Total 100 ml 4580 ml Balance 304 ml -3681 ml 824 ml Results Result Diagram: 11/13/16 0530 11/13/16 0532 Results 24 hrs Laboratory Tests Test 11/12/16 23:00 11/13/16 05:30 11/13/16 05:32 11/13/16 05:33 Arterial Blood HCO3 28.7 H Arterial Blood Base Excess 5.6 H Arterial Blood Oxygen Saturation 97.9 Adam Test ACCEPTAB Arterial Blood Gas Puncture Site Right Radial Arterial Blood Carboxyhemoglobin 0.3 Arterial Blood Date Drawn 11/12/2016 11:08:21 PM Arterial Blood Methemoglobin 0.3 Arterial Blood pCO2 (Temp correct) 36.3 Arterial Blood pH (Temp corrected) 7.516 H Arterial Blood pO2 (Temp corrected) 109.4 H Blood Gas A-a O2 Differential 61.9 H Blood Gas Actual Respiration Rate 24 Blood Gas Low PEEP Setting 5.0 Blood Gas Modality VENT - PSV Blood Gas Notified Time 11/12/2016 11:13:43 PM Blood Gas Notified Whom BR Blood Gas Pressure Support 10 Blood Gas Specimen Source Blood arterial Blood Gas Temperature 37.0 FiO2 30.0 Oxyhemoglobin Percent 97.3 Total Hemoglobin 10.3 L Basophils # 0.0 Basophils % 0.5 Blood Morphology Comment Eosinophils # 0.0 Eosinophils % 0.0 Hematocrit 26.9 L Hemoglobin 9.0 L Lipase 107 Lymphocytes # 1.2 Lymphocytes % 13.7 L Mean Corpuscular Hemoglobin 30.9 Mean Corpuscular Hemoglobin Concent 33.6 Mean Corpuscular Volume 92.0 Mean Platelet Volume 7.8 Monocytes # 1.4 H Monocytes % 16.6 H Neutrophils # 5.9 Neutrophils % 69.2 Nucleated Red Blood Cells # 0.0 Nucleated Red Blood Cells % 0.0 Platelet Count 387 Red Blood Count 2.93 L Red Cell Distribution Width 16.6 H White Blood Count 8.6 Alanine Aminotransferase (ALT/SGPT) 61 Albumin 2.4 L Albumin/Globulin Ratio 0.63 Alkaline Phosphatase 152 H Anion Gap 12 # Aspartate Amino Transf (AST/SGOT) 51 H Blood Urea Nitrogen 35 #H Calcium Level 8.7 Carbon Dioxide Level 31 Chloride Level 105 Creatinine 3.18 H Direct Bilirubin 0.00 Globulin 3.80 H Glucose Level 94 INR International Normalized Ratio 2.22 Indirect Bilirubin 0.0 Magnesium Level 2.2 Phosphorus Level 3.3 Potassium Level 3.4 L Prothrombin Time 24.9 H Prothrombin Time Ratio 1.9 Sodium Level 145 H Total Bilirubin 0.0 L Total Protein 6.2 Iron Level 27 L Percent Iron Saturation 21 L Total Iron Binding Capacity 131 L Test 11/13/16 07:00 Arterial Blood HCO3 29.5 H Arterial Blood Base Excess 5.8 H Arterial Blood Oxygen Saturation 98.1 H Adam Test ACCEPTAB Arterial Blood Gas Puncture Site Right Radial Arterial Blood Carboxyhemoglobin 0.3 Arterial Blood Date Drawn 11/13/2016 7:27:49 AM Arterial Blood Methemoglobin 0.5 Arterial Blood pCO2 (Temp correct) 39.0 Arterial Blood pH (Temp corrected) 7.496 H Arterial Blood pO2 (Temp corrected) 120.1 H Blood Gas A-a O2 Differential 48.0 H Blood Gas Actual Respiration Rate 14 Blood Gas Low PEEP Setting 5.0 Blood Gas Modality VENT - AC Blood Gas Notified Time 11/13/2016 7:55:30 AM Blood Gas Notified Whom JLD Blood Gas Respiration Rate 14.0 Blood Gas Specimen Source Blood arterial Blood Gas Temperature 37.0 Blood Gas Tidal Volume 500.0 FiO2 30.0 Oxyhemoglobin Percent 97.3 Total Hemoglobin 8.3 L Medications Medications Current Medications Ondansetron HCl (Zofran Inj) 4 mg Q6H PRN IV NAUSEA AND/OR VOMITING; Start 07/16 at 23:30 Morphine Sulfate (morphine) 2 mg Q4H PRN IV SEVERE PAIN LEVEL 7-10; Start 11/09 at 23:30 Clopidogrel Bisulfate (plaVIX) 75 mg DAILY GTB Last administered on 11/13/16 11:10; Admin Dose 75 MG; Start 11/10/16 at 09:00 Warfarin Sodium 2 mg 2 mg DAILY@17 GTB Last administered on 11/12/16 17:32; Admin Dose 2 MG; Start 11/10/16 at 17:00 Norepinephrine 16 mg/Dextrose 500 ml @ 1.87 mls/hr TITRATE IV ; Start 11/10/16 at 09:00 Fentanyl 100 ml @ 2.5 mls/hr TITRATE IV Last administered on 11/13/16 06:09; Admin Dose 3 MLS/HR; Start 11/10/16 at 03:30 Midazolam HCl 50 ml @ 1 mls/hr TITRATE IV Last administered on 11/10/16 09:57 ; Admin Dose 3 MLS/HR; Start 11/10/16 at 03:30 Piperacillin Sod/ Tazobactam Sod (Zosyn 2.25gm/ 50ml (Pmx)) 50 ml @ 100 mls/hr Q8 IVPB Last administered on 11/13/16 05:52; Admin Dose 100 MLS/HR; Start 08/16 at 14:00 Lansoprazole (Prevacid) 30 mg DAILY@06 GTB Last administered on 11/13/16 05:52 ; Admin Dose 30 MG; Start 11/13/16 at 06:00 Lactobacillus Acidoph/Bulgaricus (Floranex) 1 tab BID PO Last administered on 09:44; Admin Dose 1 TAB; Start 11/12/16 at 14:00 Senna/Docusate Sodium (Senokot-S) 2 tab HS GTB Last administered on 11/12/16 22:02; Admin Dose 2 TAB; Start 11/12/16 at 21:00 Carvedilol (Coreg) 3.125 mg BID GTB Last administered on 11/13/16 11:10; Admin Dose 3.125 MG; Start 11/12/16 at 21:00 Lisinopril (Zestril) 2.5 mg DAILY GTB Last administered on 11/13/16 11:10; Admin Dose 2.5 MG; Start 11/13/16 at 09:00 Miscellaneous Information (*Rx Drug Level Order Reminder*) 1 ONCE ONCE XX ; Start 11/14/16 at 05:00; Stop 11/14/16 at 05:01 ALICIA CODY MD Nov 13, 2016 12:35
[2016-11-13] MEDS ORDERED: ALBUTEROL 0.083% (NEB) 2.5 MG/3 ML AMP HHN PRN (13:00)
[2016-11-13 15:13] LABS: AADO2 Arterial 114.4 mmHg (7.0-24.0); Allen Test ACCEPTAB; Arterial Base Excess 6.7 mmol/L (-3.0-3); Arterial COHb 0.3 % (0.0-3.0); Arterial Fraction of Oxyhgb 96.9 % (93.0-99.0); Arterial HCO3 29.2 mmol/L (22.0-26.0); Arterial MetHb 0.3 % (0.0-1.5); Arterial Total Hemglobin 11.2 g/dl (12.0-18.0); Blood Gas PS 10; MODE VENT - CPAP
[2016-11-13] MEDS: ALBUTEROL 0.083% (NEB) 2.5 MG/3 ML AMP HHN SCH ×2 (15:49→23:17)
[2016-11-13] MEDS: WARFARIN 2 MG TAB GTB SCH (17:59)
[2016-11-13] MEDS: MAGNESIUM OXIDE 400 MG TAB PEG SCH (21:02)
[2016-11-13] MEDS: SENNA/DOCUSATE NA (8.6MG/50MG) TAB GTB SCH (21:02)
[2016-11-14] VITALS (37 sets, daily range): BP systolic 89–165; BP diastolic 43–98; PULSE 85–112; RESP 14–32
[2016-11-14 05:26] LABS: BASOPHILS % 0.3 % (0.0-2.0); EOSINOPHILS # 0.2 10^3/ul (0.0-0.5); EOSINOPHILS % 2.2 % (0.0-7.0); HEMATOCRIT 28.8 % (42.0-52.0); HEMOGLOBIN 9.5 g/dl (14.0-18.0); LYMPHOCYTES # 1.4 10^3/ul (0.8-2.9); LYMPHOCYTES % 13.7 % (15.0-51.0); MEAN CORPUSCULAR HEMOGLOBIN 30.5 pg (29.0-33.0); MEAN CORPUSCULAR HGB CONC 33.1 g/dl (32.0-37.0); MEAN CORPUSCULAR VOLUME 92.1 fl (82.0-101.0); MEAN PLATELET VOLUME 7.9 fl (7.4-10.4); MONOCYTE # 1.5 10^3/ul (0.3-0.9); MONOCYTES % 14.9 % (0.0-11.0); NEUTROPHIL # 7.1 10^3/ul (1.6-7.5); NEUTROPHILS % 68.9 % (39.0-77.0); PLATELET COUNT 362 10^3/UL (140-440); RED BLOOD COUNT 3.13 10^6/ul (4.70-6.10); RED CELL DISTRIBUTION WIDTH 16.5 % (11.5-14.5); UNCORRECTED WBC 10.3 10^3/ul (4.8-10.8); WHITE BLOOD COUNT 10.3 10^3/ul (4.8-10.8)
[2016-11-14 05:28] LABS: INR 2.12; PT RATIO 1.9
[2016-11-14 05:29] LABS: CONDITION 1; LH ANALYZER COMMENTS 1
[2016-11-14 05:35] LABS: POTASSIUM 3.6 mmol/L (3.5-5.1)
[2016-11-14 05:38] LABS: CREATININE 2.95 mg/dl (0.61-1.24); PHOSPHORUS 3.8 mg/dl (2.5-4.9)
[2016-11-14 05:39] LABS: CALCIUM 8.5 mg/dl (8.4-10.2); MAGNESIUM 2.2 mg/dl (1.7-2.5)
[2016-11-14] MEDS ORDERED: ALBUMIN HUMAN 25% 100 ML ONE (06:31)
[2016-11-14] MEDS ORDERED: ALBUMIN HUMAN 25% 100 ML IV ONE (07:00)
[2016-11-14] MEDS: PIPER-TAZO 2.25 GM (PMX) 50 ML IVPB SCH ×2 (07:15→14:23)
[2016-11-14] MEDS: ALBUTEROL 0.083% (NEB) 2.5 MG/3 ML AMP HHN SCH ×2 (08:00→16:26)
[2016-11-14 09:08] LABS: AADO2 Arterial 24.2 mmHg (7.0-24.0); Allen Test ACCEPTAB; Arterial Base Excess 6.1 mmol/L (-3.0-3); Arterial COHb 0.3 % (0.0-3.0); Arterial Fraction of Oxyhgb 97.8 % (93.0-99.0); Arterial MetHb 0.2 % (0.0-1.5); Arterial Total Hemglobin 10.6 g/dl (12.0-18.0); MODE NASAL CANNULA
--- NOTE | 2016-11-14 09:08 | CONS ---
Date/Time of Note Date/Time of Note DATE: 11/14/16 TIME: 09:06 Assessment/Plan Assessment/Plan Additional Assessment/Plan 1. Altered mental status likely secondary to sepsis secondary to pneumonia. 2. Acute respiratory failure, on ventilator. 3. End-stage renal disease on hemodialysis. 4. History of previous stroke resulting in dysphagia status post G-tube placement for feeding purposes. 5. History of hypertension. 6. History of PEG tube placement and arteriovenous fistula for dialysis access. 7. H/o Defibrillator placement PLAN: IV abx for sepsis and PNA Vent managment as per Pulmonary plan for HD today then we will pt on MWF shcedule while being in hospital will continue to follow up OK for PICC Line due to very poor peripheral IV access pt needs pressors and IV fluid resuscitation for sepsis Consultation Date/Type/Reason Admit Date/Time Nov 09, 2016 at 23:15 Initial Consult Date 11/10/2016 Type of Consultation: NEPHROLOGY Referring Provider: FRANCK TROY MD 24 HR Interval Summary Free Text/Dictation pt remains intubated, plan for HD today , had a 6 beats of v tach yesterday Exam/Review of Systems Vital Signs Vitals Vital Signs Date Time Temp Pulse Resp B/P Pulse Ox O2 Delivery O2 Flow Rate FiO2 11/14/16 08:16 106 24 99 Nasal Cannula 2.0 11/14/16 07:00 157/93 11/14/16 04:00 99.1 11/13/16 15:00 30 Intake and Output 11/13/16 11/13/16 11/14/16 15:00 23:00 07:00 Intake Total 1209 ml 475 ml 675 ml Output Total 3700 ml Balance -2491 ml 475 ml 675 ml Exam orally intubated. NECK: Supple, no JVD or lymphadenopathy. CARDIAC: S1, S2, no added sounds or murmurs. CHEST: Diminished air entry bilaterally. ABDOMEN: Soft, nontender. EXTREMITIES: No cyanosis, clubbing or edema. left forearm aVF with good thrill and bruit Results Result Diagram: 11/14/160 11/14/16439 Results 24 hrs Laboratory Tests Test 11/13/16 15:00 11/14/16 04:40 Arterial Blood HCO3 29.2 H Arterial Blood Base Excess 6.7 H Arterial Blood Oxygen Saturation 97.5 Adam Test ACCEPTAB Arterial Blood Gas Puncture Site Right Radial Arterial Blood Carboxyhemoglobin 0.3 Arterial Blood Date Drawn 11/13/2016 3:05:12 PM Arterial Blood Methemoglobin 0.3 Arterial Blood pCO2 (Temp correct) 34.5 L Arterial Blood pH (Temp corrected) 7.546 H Arterial Blood pO2 (Temp corrected) 95.0 Blood Gas A-a O2 Differential 114.4 H Blood Gas Actual Respiration Rate 28 Blood Gas Low PEEP Setting 5.0 Blood Gas Modality VENT - CPAP Blood Gas Notified Time 11/13/2016 3:13:21 PM Blood Gas Notified Whom JLD Blood Gas Pressure Support 10 Blood Gas Specimen Source Blood arterial Blood Gas Temperature 37.0 FiO2 35.0 Oxyhemoglobin Percent 96.9 Total Hemoglobin 11.2 L Anion Gap 12 Basophils # 0.0 Basophils % 0.3 Blood Morphology Comment Blood Urea Nitrogen 32 H Calcium Level 8.5 Carbon Dioxide Level 31 Chloride Level 99 Creatinine 2.95 H Eosinophils # 0.2 Eosinophils % 2.2 Glucose Level 94 Hematocrit 28.8 L Hemoglobin 9.5 L INR International Normalized Ratio 2.12 Lymphocytes # 1.4 Lymphocytes % 13.7 L Magnesium Level 2.2 Mean Corpuscular Hemoglobin 30.5 Mean Corpuscular Hemoglobin Concent 33.1 Mean Corpuscular Volume 92.1 Mean Platelet Volume 7.9 Monocytes # 1.5 H Monocytes % 14.9 H Neutrophils # 7.1 Neutrophils % 68.9 Nucleated Red Blood Cells # 0.0 Nucleated Red Blood Cells % 0.0 Phosphorus Level 3.8 Platelet Count 362 Potassium Level 3.6 Prothrombin Time 24.0 H Prothrombin Time Ratio 1.9 Random Vancomycin Level 13.1 Red Blood Count 3.13 L Red Cell Distribution Width 16.5 H Sodium Level 138 White Blood Count 10.3 Medications Medications Current Medications Ondansetron HCl (Zofran Inj) 4 mg Q6H PRN IV NAUSEA AND/OR VOMITING; Start 07/16 at 23:30 Morphine Sulfate (morphine) 2 mg Q4H PRN IV SEVERE PAIN LEVEL 7-10; Start 11/09 at 23:30 Clopidogrel Bisulfate (plaVIX) 75 mg DAILY GTB Last administered on 11/13/16 11:10; Admin Dose 75 MG; Start 11/10/16 at 09:00 Warfarin Sodium 2 mg 2 mg DAILY@17 GTB Last administered on 11/13/16 17:59; Admin Dose 2 MG; Start 11/10/16 at 17:00 Norepinephrine 16 mg/Dextrose 500 ml @ 1.87 mls/hr TITRATE IV ; Start 11/10/16 at 09:00 Fentanyl 100 ml @ 2.5 mls/hr TITRATE IV Last administered on 11/13/16 06:09; Admin Dose 3 MLS/HR; Start 11/10/16 at 03:30 Midazolam HCl 50 ml @ 1 mls/hr TITRATE IV Last administered on 11/10/16 09:57 ; Admin Dose 3 MLS/HR; Start 11/10/16 at 03:30 Piperacillin Sod/ Tazobactam Sod (Zosyn 2.25gm/ 50ml (Pmx)) 50 ml @ 100 mls/hr Q8 IVPB Last administered on 11/14/16 07:15; Admin Dose 100 MLS/HR; Start 08/16 at 14:00 Lansoprazole (Prevacid) 30 mg DAILY@06 GTB Last administered on 11/13/16 05:52 ; Admin Dose 30 MG; Start 11/13/16 at 06:00 Lactobacillus Acidoph/Bulgaricus (Floranex) 1 tab BID PO Last administered on 21:02; Admin Dose 1 TAB; Start 11/12/16 at 14:00 Senna/Docusate Sodium (Senokot-S) 2 tab HS GTB Last administered on 11/13/16 21:02; Admin Dose 2 TAB; Start 11/12/16 at 21:00 Carvedilol (Coreg) 3.125 mg BID GTB Last administered on 11/13/16 11:10; Admin Dose 3.125 MG; Start 11/12/16 at 21:00 Lisinopril (Zestril) 2.5 mg DAILY GTB Last administered on 11/13/16 11:10; Admin Dose 2.5 MG; Start 11/13/16 at 09:00 Magnesium Oxide (Mag-Ox 400) 400 mg BID PEG Last administered on 11/13/16 21: 02; Admin Dose 400 MG; Start 11/13/16 at 21:00 MARTINEZ WEST MD Nov 14, 2016 09:08
[2016-11-14] MEDS: LANSOPRAZOLE 30 MG CAP GTB SCH (09:12)
[2016-11-14] MEDS: LACTOBACILLUS CHEW TAB PO SCH ×2 (09:12→20:51)
[2016-11-14] MEDS: MAGNESIUM OXIDE 400 MG TAB PEG SCH ×2 (09:14→20:51)
--- NOTE | 2016-11-14 11:10 | PN ---
DATE: 11/14/2016 SUBJECTIVE: The patient was extubated yesterday. Remained stable on nasal cannula O2. Largely amando nolent, opens eyes, but not following commands or making eye contact. PHYSICAL EXAMINATION VITAL SIGNS: Temperature 98, pulse is 100, blood pressure 165/90, O2 saturation 96% on 2 L nasal ca nnula. NECK: Supple. No JVD or lymphadenopathy. CARDIAC: S1, S2, no added sounds or murmurs. CHEST: Diminished air entry bilaterally. ABDOMEN: Soft, nontender. No guarding or rebound. EXTREMITIES: No cyanosis, clubbing or edema. NEUROLOGIC: Generalized weakness, unable to assess. LABORATORY DATA: White count 10.3, hemoglobin 9.5, platelets 362. Arterial blood gas pH 7.52, pCO2 of 35, pO2 of 126. IMAGING: Chest x-ray is pending as of this morning. IMPRESSION AND PLAN: 1. Status post respiratory failure, possibly aspiration pneumonitis. 2. History of end-stage renal failure on hemodialysis. 3. History of chronic dementia. 4. History of dysphagia with G-tube. The patient will require: 1. Continue tube feeding. 2. Aspiration precautions. 3. Pulmonary toilet. 4. Transfer to telemetry okay from pulmonary standpoint. Dictated By: MELISSA FRANCES/DRE Conf#: [id number] DID#: [id number]
--- NOTE | 2016-11-14 13:55 | RADRPT ---
PROCEDURE: XR Chest. CLINICAL INDICATION: Shortness of breath. TECHNIQUE: Single frontal view. COMPARISON: 11/13/2016. FINDINGS: The endotracheal tube has been removed. The left-sided defibrillator device is unchanged. The lung s are clear. The heart size is normal. There is calcification in the aorta consistent with atherosclerosis. There is no pleural effusion. There is no pneumothorax. IMPRESSION: 1. Endotracheal tube removed. 2. Clear lungs. 3. No other change from 11/13/2016. RPTAT: QQ .Refugio Dai MD, MD Date Time Electronically viewed and signed by .Refugio Dai MD, MD on 11/14/2016 13:55 .R/
[2016-11-14] MEDS ORDERED: VANCOMYCIN 1 GM in NS 250 ML IVPB SCH (14:00)
--- NOTE | 2016-11-14 14:16 | PN ---
Date/Time of Note Date/Time of Note DATE: 11/14/16 TIME: 14:13 Assessment/Plan VTE Prophylaxis VTE Prophylaxis Intervention: LMWH Lines/Catheters IV C[facility]ter Type (from [facility]): Saline Lock Urinary Cath still in place: No Assessment/Plan Chief Complaint/Hosp Course S: 11/12- Tolerating feeds @10. Family wants IV placed in leg instead of PICC, which is not the best/recommended care. Weaning on vent. Still encephalopathic/ apparently at baseline neurologically according the family. 11/13-still weaning off vent. For hd today. no family at bedside 11/14 extubated. tolerating feeds. remains encephalopathic ~ aphasic? Diarrhea noted; for rectal tube. O: vss PE No pallor Reg, no m/r/g Dimin at bases Bs + nt, nd; no r/r/g. Peg c/d/i + hypotonia; contractures unable to really appreciate reflexes; lt AVf + thrill A/P 1. Severe sepsis; Encephalopathy w rt lower lobe pneumonia/pneumonitis. Stable cont pulmonary hygiene/ atb's 2. Pneumonia likely strep/aspiration; recurrent risks explained to daughter; recommended DNR 3. Dysphagia? 10/19/16- peg 4. Ischemic stroke '; on Plavix 5. Probable vascular dementia 6. ESRD mwf HD 7. Functional quadriplegia? 8. Lwr ext edema, -hypotonia; Ford's cyst? 9. Malnutrition. Cont feeds and free water. 10. Constipation 11. Pul Nodule 8 mm pleural; may continue surveillance although not a surgical candidate 12. Abn LFTs; viral process vs statin? No evidence of cholecystitis. 13. Ac toxic encephalopathy/delirium on top of vascular dementia 14. Htn 15. AICD 16. LV clot; on coumadin- [facility] 17. CAD/ pci- 5stents; Ho VFib/ VT arrest/ AICD 18. Recent URI 19. Anemia; ho transfusion/ platlets in September. 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 Diarrhea; benign/ antibiotic induced. rectal tube care; change feeds? Problems: Exam/Review of Systems Vital Signs Vitals Vital Signs Date Time Temp Pulse Resp B/P Pulse Ox O2 Delivery O2 Flow Rate FiO2 11/14/16 13:00 88 30 105/60 100 Nasal Cannula 2.0 11/14/16 12:00 98.2 11/13/16 15:00 30 Intake and Output 11/13/16 11/13/16 11/14/16 15:00 23:00 07:00 Intake Total 1209 ml 475 ml 700 ml Output Total 3700 ml Balance -2491 ml 475 ml 700 ml Results Result Diagram: 11/14/16 0440 11/14/16 0440 Results 24 hrs Laboratory Tests Test 11/13/16 15:00 11/14/16 04:40 11/14/16 07:00 Arterial Blood HCO3 29.2 H 29.0 H Arterial Blood Base Excess 6.7 H 6.1 H Arterial Blood Oxygen Saturation 97.5 98.3 H Adam Test ACCEPTAB ACCEPTAB Arterial Blood Gas Puncture Site Right Radial Right Radial Arterial Blood Carboxyhemoglobin 0.3 0.3 Arterial Blood Date Drawn 11/13/2016 3:05:12 PM 11/14/2016 8:41:47 AM Arterial Blood Methemoglobin 0.3 0.2 Arterial Blood pCO2 (Temp correct) 34.5 L 35.6 Arterial Blood pH (Temp corrected) 7.546 H 7.529 H Arterial Blood pO2 (Temp corrected) 95.0 126.2 H Blood Gas A-a O2 Differential 114.4 H 24.2 H Blood Gas Actual Respiration Rate 28 Blood Gas Low PEEP Setting 5.0 Blood Gas Modality VENT - CPAP NASAL CANNULA Blood Gas Notified Time 11/13/2016 3:13:21 PM 11/14/2016 9:08:23 AM Blood Gas Notified Whom JLD JLD Blood Gas Pressure Support 10 Blood Gas Specimen Source Blood arterial Blood arterial Blood Gas Temperature 37.0 37.0 FiO2 35.0 27.0 Oxyhemoglobin Percent 96.9 97.8 Total Hemoglobin 11.2 L 10.6 L Anion Gap 12 Basophils # 0.0 Basophils % 0.3 Blood Morphology Comment Blood Urea Nitrogen 32 H Calcium Level 8.5 Carbon Dioxide Level 31 Chloride Level 99 Creatinine 2.95 H Eosinophils # 0.2 Eosinophils % 2.2 Glucose Level 94 Hematocrit 28.8 L Hemoglobin 9.5 L INR International Normalized Ratio 2.12 Lymphocytes # 1.4 Lymphocytes % 13.7 L Magnesium Level 2.2 Mean Corpuscular Hemoglobin 30.5 Mean Corpuscular Hemoglobin Concent 33.1 Mean Corpuscular Volume 92.1 Mean Platelet Volume 7.9 Monocytes # 1.5 H Monocytes % 14.9 H Neutrophils # 7.1 Neutrophils % 68.9 Nucleated Red Blood Cells # 0.0 Nucleated Red Blood Cells % 0.0 Phosphorus Level 3.8 Platelet Count 362 Potassium Level 3.6 Prothrombin Time 24.0 H Prothrombin Time Ratio 1.9 Random Vancomycin Level 13.1 Red Blood Count 3.13 L Red Cell Distribution Width 16.5 H Sodium Level 138 White Blood Count 10.3 Medications Medications Current Medications Ondansetron HCl (Zofran Inj) 4 mg Q6H PRN IV NAUSEA AND/OR VOMITING; Start 07/16 at 23:30 Morphine Sulfate (morphine) 2 mg Q4H PRN IV SEVERE PAIN LEVEL 7-10; Start 11/09 at 23:30 Clopidogrel Bisulfate (plaVIX) 75 mg DAILY GTB Last administered on 11/13/16 11:10; Admin Dose 75 MG; Start 11/10/16 at 09:00 Warfarin Sodium 2 mg 2 mg DAILY@17 GTB Last administered on 11/13/16 17:59; Admin Dose 2 MG; Start 11/10/16 at 17:00 Norepinephrine 16 mg/Dextrose 500 ml @ 1.87 mls/hr TITRATE IV ; Start 11/10/16 at 09:00 Piperacillin Sod/ Tazobactam Sod (Zosyn 2.25gm/ 50ml (Pmx)) 50 ml @ 100 mls/hr Q8 IVPB Last administered on 11/14/16 07:15; Admin Dose 100 MLS/HR; Start 08/16 at 14:00 Lansoprazole (Prevacid) 30 mg DAILY@06 GTB Last administered on 11/14/16 09:12 ; Admin Dose 30 MG; Start 11/13/16 at 06:00 Lactobacillus Acidoph/Bulgaricus (Floranex) 1 tab BID PO Last administered on 09:12; Admin Dose 1 TAB; Start 11/12/16 at 14:00 Senna/Docusate Sodium (Senokot-S) 2 tab HS GTB Last administered on 11/13/16 21:02; Admin Dose 2 TAB; Start 11/12/16 at 21:00 Carvedilol (Coreg) 3.125 mg BID GTB Last administered on 11/14/16 09:14; Admin Dose 3.125 MG; Start 11/12/16 at 21:00 Lisinopril (Zestril) 2.5 mg DAILY GTB Last administered on 11/13/16 11:10; Admin Dose 2.5 MG; Start 11/13/16 at 09:00 Magnesium Oxide 400 mg 400 mg BID PEG Last administered on 11/14/16 09:14; Admin Dose 400 MG; Start 11/13/16 at 21:00 Vancomycin HCl (Vancocin) 250 ml @ 125 mls/hr 14 IVPB ; Start 11/14/16 at 14:00 ; Stop 11/14/16 at 16:00 ALICIA CODY MD Nov 14, 2016 14:16
[2016-11-14] MEDS ORDERED: SEVELAMER CARBONATE 0.8 GM PKT GTB PRN (15:00)
[2016-11-14] MEDS: WARFARIN 2 MG TAB GTB SCH (17:33)
[2016-11-14] MEDS: SEVELAMER CARBONATE 0.8 GM PKT GTB SCH (17:33)
[2016-11-14] MEDS: ATORVASTATIN 40 MG TAB GTB SCH (20:51)
[2016-11-15] VITALS (14 sets, daily range): BP systolic 130–169; BP diastolic 61–80; PULSE 92–123; RESP 20–36
[2016-11-15] MEDS ORDERED: LEVOFLOXACIN 500 MG TAB GTB SCH (06:00)
[2016-11-15] MEDS: LANSOPRAZOLE 30 MG CAP GTB SCH (06:18)
[2016-11-15] MEDS: ALBUTEROL 0.083% (NEB) 2.5 MG/3 ML AMP HHN SCH ×4 (08:08→23:54)
[2016-11-15] MEDS: LACTOBACILLUS CHEW TAB PO SCH ×2 (09:25→21:51)
[2016-11-15] MEDS: CLOPIDOGREL 75 MG TAB GTB SCH (09:26)
[2016-11-15] MEDS: LISINOPRIL 5 MG TAB GTB SCH (09:26)
--- NOTE | 2016-11-15 09:30 | CONS ---
Date/Time of Note Date/Time of Note DATE: 11/15/16 TIME: 09:28 Assessment/Plan Assessment/Plan Additional Assessment/Plan 1. Altered mental status likely secondary to sepsis secondary to pneumonia. 2. Acute respiratory failure, on ventilator.s/p Extubation 3. End-stage renal disease on hemodialysis.MWF 4. History of previous stroke resulting in dysphagia status post G-tube placement for feeding purposes. 5. History of hypertension. 6. History of PEG tube placement and arteriovenous fistula for dialysis access. 7. H/o Defibrillator placement PLAN: IV abx for sepsis and PNA, s/p extubation plan for HD tomorrow then we will pt on MWF shcedule while being in hospital will continue to follow up Consultation Date/Type/Reason Admit Date/Time Nov 09, 2016 at 23:15 Initial Consult Date 11/10/2016 Type of Consultation: NEPHROLOGY Reason for Consultation ESRD on HD with septic shock Referring Provider: FRANCK TROY MD 24 HR Interval Summary Free Text/Dictation Bp stable, transferred to telemetry floor, s/p HD yesterday,BP stable Exam/Review of Systems Vital Signs Vitals Vital Signs Date Time Temp Pulse Resp B/P Pulse Ox O2 Delivery O2 Flow Rate FiO2 11/15/16 08:25 112 11/15/16 08:13 97.9 20 130/61 100 11/15/16 08:11 Nasal Cannula 2.0 11/13/16 15:00 30 Intake and Output 11/14/16 11/14/16 11/15/16 15:00 23:00 07:00 Intake Total 1100 ml 725 ml Output Total 2550 ml 50 ml 65 ml Balance -1450 ml 675 ml -65 ml Exam extubated, awake, alert NECK: Supple, no JVD or lymphadenopathy. CARDIAC: S1, S2, no added sounds or murmurs. CHEST: bibasilar rales ABDOMEN: Soft, nontender. EXTREMITIES: No cyanosis, clubbing or edema. left forearm aVF with good thrill and bruit Results Result Diagram: 11/14/1643911/14/16439 Medications Medications Current Medications Ondansetron HCl (Zofran Inj) 4 mg Q6H PRN IV NAUSEA AND/OR VOMITING; Start 07/16 at 23:30 Morphine Sulfate (morphine) 2 mg Q4H PRN IV SEVERE PAIN LEVEL 7-10; Start 11/09 at 23:30 Clopidogrel Bisulfate (plaVIX) 75 mg DAILY GTB Last administered on 11/15/16 09:26; Admin Dose 75 MG; Start 11/10/16 at 09:00 Warfarin Sodium (Coumadin) 2 mg DAILY@17 GTB Last administered on 11/14/16 17: 33; Admin Dose 2 MG; Start 11/10/16 at 17:00 Lansoprazole (Prevacid) 30 mg DAILY@06 GTB Last administered on 11/15/16 06:18 ; Admin Dose 30 MG; Start 11/13/16 at 06:00 Lactobacillus Acidoph/Bulgaricus (Floranex) 1 tab BID PO Last administered on 09:25; Admin Dose 1 TAB; Start 11/12/16 at 14:00 Carvedilol (Coreg) 3.125 mg BID GTB Last administered on 11/15/16 09:26; Admin Dose 3.125 MG; Start 11/12/16 at 21:00 Lisinopril (Zestril) 2.5 mg DAILY GTB Last administered on 11/15/16 09:26; Admin Dose 2.5 MG; Start 11/13/16 at 09:00 Magnesium Oxide (Mag-Ox 400) 400 mg BID PEG Last administered on 11/14/16 20: 51; Admin Dose 400 MG; Start 11/13/16 at 21:00 Levofloxacin (Levaquin) 500 mg ONCE GTB Last administered on 11/15/16 06:18; Admin Dose 500 MG; Start 11/15/16 at 06:00; Stop 11/15/16 at 10:00 Levofloxacin (Levaquin) 250 mg DAILY@06 PO ; Start 11/16/16 at 06:00 Atorvastatin Calcium (Lipitor) 40 mg QHS GTB Last administered on 11/14/16 20: 51; Admin Dose 40 MG; Start 11/14/16 at 21:00 Influenza Virus Vaccine (Fluzone) 0.5 ml ONCE ONCE IM* ; Start 11/16/16 at 10:00 ; Stop 11/16/16 at 10:01 MARTINEZ WEST MD Nov 15, 2016 09:30
[2016-11-15] MEDS: MAGNESIUM OXIDE 400 MG TAB PEG SCH ×2 (10:23→21:59)
[2016-11-15] MEDS: SEVELAMER CARBONATE 0.8 GM PKT GTB SCH ×3 (10:23→17:32)
--- NOTE | 2016-11-15 12:42 | PN ---
DATE: 11/15/2016 Mr. Mason is stable. No new events. PHYSICAL EXAMINATION: VITAL SIGNS: Temperature 98, pulse is now 110, blood pressure 135/70, O2 saturation 96% on 2 liters . NECK: Supple, no JVD or lymphadenopathy. Dry mucous membranes. Pupils equal and reactive to light . CARDIAC: S1, S2, no added sounds or murmurs. CHEST: Diminished air entry bilaterally. ABDOMEN: Mildly distended, soft. EXTREMITIES: No cyanosis, clubbing, and edema +1. NEUROLOGIC: Unable to assess. IMPRESSION AND PLAN: 1. Status post respiratory failure. 2. Advanced dementia. 3. Dysphagia with G-tube. 4. End-stage renal failure on hemodialysis. Patient will require: 1. Continued hemodialysis. 2. Aspiration precautions. 3. Consider discharge planning soon as neurological status is unlikely to change. Dictated By: MELISSA FRANCES/DRE Conf#: [id number] DID#: [id number]
[2016-11-15 13:24] LABS: AADO2 Arterial 25.4 mmHg (7.0-24.0); Allen Test ACCEPTAB; Arterial Base Excess 4.8 mmol/L (-3.0-3); Arterial COHb 0.1 % (0.0-3.0); Arterial Fraction of Oxyhgb 97.4 % (93.0-99.0); Arterial HCO3 29.7 mmol/L (22.0-26.0); Arterial MetHb 0.4 % (0.0-1.5); Arterial Total Hemglobin 11.5 g/dl (12.0-18.0); MODE NASAL CANNULA
--- NOTE | 2016-11-15 13:33 | CONS ---
Date/Time of Note Date/Time of Note DATE: 11/15/16 TIME: 13:30 Assessment/Plan Assessment/Plan Additional Assessment/Plan Assessment and recommendations; next 1. Patient attended to immediately at bedside for what appears to be Virgilio- Andres type of breathing. 2. According medical records this is a patient patient's baseline mental status. 3. Patient is hemodynamically stable with adequate ABG on 2 L nasal cannula. The current treatment for now give the patient trial of BiPAP. Because of poor mental status, code status needs to be discussed with the family. Consultation Date/Type/Reason Admit Date/Time Nov 09, 2016 at 23:15 Initial Consult Date Type of Consultation: NEPHROLOGY Referring Provider: FRANCK TROY MD 24 HR Interval Summary Free Text/Dictation I was called to evaluate the patient at the patient was having what appears to be Virgilio-Andres type of breathing. Because of continued poor mental status patient remains completely unresponsive. Was extubated 48 hours ago. According to the family, this is the patient's baseline mental status. Stat ABG was done a short while ago which is essentially within normal limits. Exam/Review of Systems Vital Signs Vitals Vital Signs Date Time Temp Pulse Resp B/P Pulse Ox O2 Delivery O2 Flow Rate FiO2 11/15/16 12:49 36 11/15/16 12:22 123 11/15/16 11:35 98.0 135/71 99 11/15/16 10:31 Nasal Cannula 2.0 11/13/16 15:00 30 Intake and Output 11/14/16 11/14/16 11/15/16 15:00 23:00 07:00 Intake Total 1100 ml 725 ml Output Total 2550 ml 50 ml 65 ml Balance -1450 ml 675 ml -65 ml Exam HEENT examination; supple neck, no JVD. No lymphadenopathy. No stridor. Next Chest examination; diminished but clear breath sounds bilaterally. S1-S2 audible, no murmurs, regular rhythm. Abdomen examination; soft, bowel sounds audible, no organomegaly. G-tube in place. Extremity examination; no peripheral edema. [employer] examination; patient does not respond to any commands. Results Result Diagram: 11/14/16 0440 11/14/16 0440 Results 24 hrs Laboratory Tests Test 11/15/16 13:08 Arterial Blood HCO3 29.7 H Arterial Blood Base Excess 4.8 H Arterial Blood Oxygen Saturation 97.9 Adam Test ACCEPTAB Arterial Blood Gas Puncture Site Right Radial Arterial Blood Carboxyhemoglobin 0.1 Arterial Blood Date Drawn 11/15/2016 1:10:15 PM Arterial Blood Methemoglobin 0.4 Arterial Blood pCO2 (Temp correct) 45.2 H Arterial Blood pH (Temp corrected) 7.435 Arterial Blood pO2 (Temp corrected) 113.7 H Blood Gas A-a O2 Differential 25.4 H Blood Gas Modality NASAL CANNULA Blood Gas Notified Time 11/15/2016 1:23:51 PM Blood Gas Notified Whom JLD Blood Gas Specimen Source Blood arterial Blood Gas Temperature 37.0 FiO2 27.0 Oxyhemoglobin Percent 97.4 Total Hemoglobin 11.5 L Medications Medications Current Medications Ondansetron HCl (Zofran Inj) 4 mg Q6H PRN IV NAUSEA AND/OR VOMITING; Start 07/16 at 23:30 Morphine Sulfate (morphine) 2 mg Q4H PRN IV SEVERE PAIN LEVEL 7-10; Start 11/09 at 23:30 Clopidogrel Bisulfate (plaVIX) 75 mg DAILY GTB Last administered on 11/15/16 09:26; Admin Dose 75 MG; Start 11/10/16 at 09:00 Warfarin Sodium (Coumadin) 2 mg DAILY@17 GTB Last administered on 11/14/16 17: 33; Admin Dose 2 MG; Start 11/10/16 at 17:00 Lansoprazole (Prevacid) 30 mg DAILY@06 GTB Last administered on 11/15/16 06:18 ; Admin Dose 30 MG; Start 11/13/16 at 06:00 Lactobacillus Acidoph/Bulgaricus (Floranex) 1 tab BID PO Last administered on 09:25; Admin Dose 1 TAB; Start 11/12/16 at 14:00 Carvedilol (Coreg) 3.125 mg BID GTB Last administered on 11/15/16 09:26; Admin Dose 3.125 MG; Start 11/12/16 at 21:00 Lisinopril (Zestril) 2.5 mg DAILY GTB Last administered on 11/15/16 09:26; Admin Dose 2.5 MG; Start 11/13/16 at 09:00 Magnesium Oxide (Mag-Ox 400) 400 mg BID PEG Last administered on 11/15/16 10: 23; Admin Dose 400 MG; Start 11/13/16 at 21:00 Levofloxacin (Levaquin) 250 mg DAILY@06 PO ; Start 11/16/16 at 06:00 Atorvastatin Calcium (Lipitor) 40 mg QHS GTB Last administered on 11/14/16 20: 51; Admin Dose 40 MG; Start 11/14/16 at 21:00 Influenza Virus Vaccine (Fluzone) 0.5 ml ONCE ONCE IM* ; Start 11/16/16 at 10:00 ; Stop 11/16/16 at 10:01 FREDDIE BRAGA Nov 15, 2016 13:33
--- NOTE | 2016-11-15 17:02 | PN ---
Date/Time of Note Date/Time of Note DATE: 11/15/16 TIME: 17:00 Assessment/Plan VTE Prophylaxis VTE Prophylaxis Intervention: LMWH Lines/Catheters IV Catheter Type (from Rust): Saline Lock Urinary Cath still in place: No Assessment/Plan Chief Complaint/Hosp Course S: 11/12- Tolerating feeds @10. Family wants IV placed in leg instead of PICC, which is not the best/recommended care. Weaning on vent. Still encephalopathic/ apparently at baseline neurologically according the family. 11/13-still weaning off vent. For hd today. no family at bedside 11/14 extubated. tolerating feeds. remains encephalopathic ~ aphasic? Diarrhea noted; for rectal tube. 11/15: Events noted. Tachypnea and tachycardia noted. Lots of upper airway secretion but no hypoxia/fever. O: vss/heart rate 100-115 PE No pallor/JVD Reg, no m/r/g Dimin at bases Bs + nt, nd; no r/r/g. Peg c/d/i Ext: + hypotonia; contractures; lt AVf + thrill Neuro: Contractures, diminished symmetrical reflexes A/P 1. Severe sepsis; Encephalopathy w rt lower lobe pneumonia/pneumonitis. Stable cont pulmonary hygiene/ atb's 2. Pneumonia likely strep/aspiration; recurrent risks explained to daughter; recommended DNR 3. Dysphagia? 10/19/16- peg 4. Ischemic stroke '; on Plavix 5. Probable vascular dementia 6. ESRD mwf HD 7. Functional quadriplegia? 8. Lwr ext edema, -hypotonia; Ford's cyst? 9. Malnutrition. Cont feeds and free water. 10. Constipation 11. Pul Nodule 8 mm pleural; may continue surveillance although not a surgical candidate 12. Abn LFTs; viral process vs statin? No evidence of cholecystitis. 13. Ac toxic encephalopathy/delirium on top of vascular dementia 14. Htn 15. AICD 16. LV clot; on coumadin- [facility] 17. CAD/ pci- 5stents; Ho VFib/ VT arrest/ AICD 18. Recent URI 19. Anemia; ho transfusion/ platlets in September. 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 Diarrhea; benign/ antibiotic induced. rectal tube care; change feeds? 22. Tachypnea: Multifactorial, reviewed repeat chest x-ray, follow vital signs. Problems: Exam/Review of Systems Vital Signs Vitals Vital Signs Date Time Temp Pulse Resp B/P Pulse Ox O2 Delivery O2 Flow Rate FiO2 11/15/16 16:57 110 11/15/16 15:00 98.0 20 143/80 96 11/15/16 13:50 40 11/15/16 10:31 Nasal Cannula 2.0 Intake and Output 11/14/16 11/14/16 11/15/16 15:00 23:00 07:00 Intake Total 1100 ml 725 ml Output Total 2550 ml 50 ml 65 ml Balance -1450 ml 675 ml -65 ml Results Result Diagram: 11/14/16 0440 11/14/16 0440 Results 24 hrs Laboratory Tests Test 11/15/16 13:08 Arterial Blood HCO3 29.7 H Arterial Blood Base Excess 4.8 H Arterial Blood Oxygen Saturation 97.9 Adam Test ACCEPTAB Arterial Blood Gas Puncture Site Right Radial Arterial Blood Carboxyhemoglobin 0.1 Arterial Blood Date Drawn 11/15/2016 1:10:15 PM Arterial Blood Methemoglobin 0.4 Arterial Blood pCO2 (Temp correct) 45.2 H Arterial Blood pH (Temp corrected) 7.435 Arterial Blood pO2 (Temp corrected) 113.7 H Blood Gas A-a O2 Differential 25.4 H Blood Gas Modality NASAL CANNULA Blood Gas Notified Time 11/15/2016 1:23:51 PM Blood Gas Notified Whom JLD Blood Gas Specimen Source Blood arterial Blood Gas Temperature 37.0 FiO2 27.0 Oxyhemoglobin Percent 97.4 Total Hemoglobin 11.5 L Medications Medications Current Medications Ondansetron HCl (Zofran Inj) 4 mg Q6H PRN IV NAUSEA AND/OR VOMITING; Start 07/16 at 23:30 Morphine Sulfate (morphine) 2 mg Q4H PRN IV SEVERE PAIN LEVEL 7-10; Start 11/09 at 23:30 Clopidogrel Bisulfate (plaVIX) 75 mg DAILY GTB Last administered on 11/15/16 09:26; Admin Dose 75 MG; Start 11/10/16 at 09:00 Warfarin Sodium (Coumadin) 2 mg DAILY@17 GTB Last administered on 11/14/16 17: 33; Admin Dose 2 MG; Start 11/10/16 at 17:00 Lansoprazole (Prevacid) 30 mg DAILY@06 GTB Last administered on 11/15/16 06:18 ; Admin Dose 30 MG; Start 11/13/16 at 06:00 Lactobacillus Acidoph/Bulgaricus (Floranex) 1 tab BID PO Last administered on 09:25; Admin Dose 1 TAB; Start 11/12/16 at 14:00 Carvedilol (Coreg) 3.125 mg BID GTB Last administered on 11/15/16 09:26; Admin Dose 3.125 MG; Start 11/12/16 at 21:00 Lisinopril (Zestril) 2.5 mg DAILY GTB Last administered on 11/15/16 09:26; Admin Dose 2.5 MG; Start 11/13/16 at 09:00 Magnesium Oxide (Mag-Ox 400) 400 mg BID PEG Last administered on 11/15/16 10: 23; Admin Dose 400 MG; Start 11/13/16 at 21:00 Levofloxacin (Levaquin) 250 mg DAILY@06 PO ; Start 11/16/16 at 06:00 Atorvastatin Calcium (Lipitor) 40 mg QHS GTB Last administered on 11/14/16 20: 51; Admin Dose 40 MG; Start 11/14/16 at 21:00 Influenza Virus Vaccine (Fluzone) 0.5 ml ONCE ONCE IM* ; Start 11/16/16 at 10:00 ; Stop 11/16/16 at 10:01 ALICIA CODY MD Nov 15, 2016 17:02
[2016-11-15] MEDS: WARFARIN 2 MG TAB GTB SCH (17:32)
[2016-11-15] MEDS: ACETAMINOPHEN 325 MG TAB PO PRN (21:50)
[2016-11-15] MEDS: ATORVASTATIN 40 MG TAB GTB SCH (21:59)
[2016-11-15] MEDS ORDERED: LORAZEPAM 2 MG INJ IV ONE (22:15)
[2016-11-15] MEDS ORDERED: LEVOFLOXACIN 500MG/D5W (PMX) 100 ML IVPB SCH (23:00)
[2016-11-16] VITALS (20 sets, daily range): BP systolic 98–157; BP diastolic 5–78; PULSE 76–107; RESP 18–20
[2016-11-16] MEDS ORDERED: LEVOFLOXACIN 250 MG TAB PO SCH (06:00)
[2016-11-16] MEDS: LANSOPRAZOLE 30 MG CAP GTB SCH (06:22)
[2016-11-16] MEDS: ALBUTEROL 0.083% (NEB) 2.5 MG/3 ML AMP HHN SCH ×2 (07:51→16:30)
[2016-11-16] MEDS: SEVELAMER CARBONATE 0.8 GM PKT GTB SCH ×3 (08:00→17:16)
[2016-11-16 08:02] LABS: BASOPHILS % 0.2 % (0.0-2.0); EOSINOPHILS # 0.2 10^3/ul (0.0-0.5); EOSINOPHILS % 1.1 % (0.0-7.0); HEMATOCRIT 26.9 % (42.0-52.0); LYMPHOCYTES # 1.1 10^3/ul (0.8-2.9); LYMPHOCYTES % 7.8 % (15.0-51.0); MEAN CORPUSCULAR HEMOGLOBIN 30.5 pg (29.0-33.0); MEAN CORPUSCULAR HGB CONC 33.5 g/dl (32.0-37.0); MEAN PLATELET VOLUME 8.1 fl (7.4-10.4); MONOCYTE # 1.3 10^3/ul (0.3-0.9); MONOCYTES % 8.8 % (0.0-11.0); NEUTROPHIL # 11.8 10^3/ul (1.6-7.5); NEUTROPHILS % 82.1 % (39.0-77.0); PLATELET COUNT 288 10^3/UL (140-440); RED BLOOD COUNT 2.96 10^6/ul (4.70-6.10); RED CELL DISTRIBUTION WIDTH 16.4 % (11.5-14.5); UNCORRECTED WBC 14.4 10^3/ul (4.8-10.8); WHITE BLOOD COUNT 14.4 10^3/ul (4.8-10.8)
[2016-11-16 08:03] LABS: INR 2.36; PROTIME 26.1 Sec (12.2-14.2)
[2016-11-16 08:15] LABS: ALBUMIN 2.4 g/dl (3.3-4.9)
[2016-11-16 08:16] LABS: POTASSIUM 3.8 mmol/L (3.5-5.1)
[2016-11-16 08:18] LABS: ALBUMIN/GLOBULIN RATIO 0.72; BILIRUBIN,INDIRECT 0.2 mg/dl (0-1.1); BILIRUBIN,TOTAL 0.2 mg/dl (0.2-1.3); CREATININE 4.02 mg/dl (0.61-1.24); PHOSPHORUS 2.6 mg/dl (2.5-4.9); TOTAL PROTEIN 5.7 g/dl (6.1-8.1)
[2016-11-16 08:19] LABS: CALCIUM 8.8 mg/dl (8.4-10.2); MAGNESIUM 2.6 mg/dl (1.7-2.5)
[2016-11-16 08:20] LABS: CONDITION 1; LH ANALYZER COMMENTS 1
[2016-11-16] MEDS: CLOPIDOGREL 75 MG TAB GTB SCH (09:00)
[2016-11-16] MEDS: CHOLECALCIFEROL 2,000 UNIT CAP PEG SCH (09:00)
[2016-11-16] MEDS: LISINOPRIL 5 MG TAB GTB SCH (09:00)
[2016-11-16] MEDS: MAGNESIUM OXIDE 400 MG TAB PEG SCH ×2 (09:00→21:36)
[2016-11-16] MEDS: LACTOBACILLUS CHEW TAB PO SCH ×2 (09:00→21:36)
--- NOTE | 2016-11-16 09:01 | RADRPT ---
PROCEDURE: XR Chest 1 View. CLINICAL INDICATION: Cough TECHNIQUE: AP view of the chest were obtained. COMPARISON: November 14, 2016 FINDINGS: The heart size is within normal limits. Calcified atherosclerosis is noted in the aorta. Left-sided defibrillator device has its lead over the heart and appears stable. The lungs are hypoinflated. Patchy atelectasis versus mild infiltrates in the left lower lobe have developed. No pneumothorax a s visualized. The osseous structures are osteopenic and appear unchanged. IMPRESSION: Calcified atherosclerosis in the aorta. Hypoinflated lungs. Interval development of patchy atelectasis versus mild infiltrates in the left lower lobe. RPTAT: AA .Roshan Licea MD, MD Date Time Electronically viewed and signed by .Roshan Licea MD, MD on 11/16/2016 09:00 .P/
--- NOTE | 2016-11-16 09:31 | CONS ---
Date/Time of Note Date/Time of Note DATE: 11/16/16 TIME: 09:27 Assessment/Plan Assessment/Plan Additional Assessment/Plan 1. Altered mental status likely secondary to sepsis secondary to pneumonia. 2. Acute respiratory failure, on ventilator.s/p Extubation 3. End-stage renal disease on hemodialysis.MWF 4. History of previous stroke resulting in dysphagia status post G-tube placement for feeding purposes. 5. History of hypertension. 6. History of PEG tube placement and arteriovenous fistula for dialysis access. 7. H/o Defibrillator placement PLAN: IV abx for sepsis and PNA, s/p extubation WBC increased today, blood cx drawn, need straight cath to get urine sample troponin went upto 0.2- with some Triplets PVC on Tele monitor, need cardiology evaluation by family plan for HD today then we will pt on MWF shcedule while being in hospital will continue to follow up Consultation Date/Type/Reason Admit Date/Time Nov 09, 2016 at 23:15 Initial Consult Date 11/10/2016 Type of Consultation: NEPHROLOGY Reason for Consultation ESRD on HD with resp failue fluid overload, septic shock Referring Provider: FRANCK TROY MD 24 HR Interval Summary Free Text/Dictation pt had a arrythmia on tele monitor, troponin 0.2, WBC trend up, need Urine stuides and blood cx Exam/Review of Systems Vital Signs Vitals Vital Signs Date Time Temp Pulse Resp B/P Pulse Ox O2 Delivery O2 Flow Rate FiO2 11/16/16 08:37 100 11/16/16 07:55 98 21 11/16/16 07:53 20 Nasal Cannula 2.0 11/16/16 07:00 98.4 121/61 Intake and Output 11/15/16 11/15/16 11/16/16 15:00 23:00 07:00 Intake Total 120 ml 620 ml 120 ml Output Total 195 ml Balance -75 ml 620 ml 120 ml Exam NECK: Supple, no JVD or lymphadenopathy. CARDIAC: S1, S2, no added sounds or murmurs. CHEST: bibasilar rales ABDOMEN: Soft, nontender. EXTREMITIES: No cyanosis, clubbing or edema. left forearm aVF with good thrill and bruit Results Result Diagram: 11/16/16 0711/16/16 0701 Results 24 hrs Laboratory Tests Test 11/15/16 13:08 11/16/16 07:01 Arterial Blood HCO3 29.7 H Arterial Blood Base Excess 4.8 H Arterial Blood Oxygen Saturation 97.9 Adam Test ACCEPTAB Arterial Blood Gas Puncture Site Right Radial Arterial Blood Carboxyhemoglobin 0.1 Arterial Blood Date Drawn 11/15/2016 1:10:15 PM Arterial Blood Methemoglobin 0.4 Arterial Blood pCO2 (Temp correct) 45.2 H Arterial Blood pH (Temp corrected) 7.435 Arterial Blood pO2 (Temp corrected) 113.7 H Blood Gas A-a O2 Differential 25.4 H Blood Gas Modality NASAL CANNULA Blood Gas Notified Time 11/15/2016 1:23:51 PM Blood Gas Notified Whom JLD Blood Gas Specimen Source Blood arterial Blood Gas Temperature 37.0 FiO2 27.0 Oxyhemoglobin Percent 97.4 Total Hemoglobin 11.5 L Alanine Aminotransferase (ALT/SGPT) 37 Albumin 2.4 L Albumin/Globulin Ratio 0.72 Alkaline Phosphatase 125 H Anion Gap 17 H Aspartate Amino Transf (AST/SGOT) 34 Basophils # 0.0 Basophils % 0.2 Blood Morphology Comment Blood Urea Nitrogen 35 H Calcium Level 8.8 Carbon Dioxide Level 27 Chloride Level 101 Creatinine 4.02 H Direct Bilirubin 0.00 Eosinophils # 0.2 Eosinophils % 1.1 Globulin 3.30 H Glucose Level 94 Hematocrit 26.9 L Hemoglobin 9.0 L INR International Normalized Ratio 2.36 Indirect Bilirubin 0.2 Lymphocytes # 1.1 Lymphocytes % 7.8 L Magnesium Level 2.6 H Mean Corpuscular Hemoglobin 30.5 Mean Corpuscular Hemoglobin Concent 33.5 Mean Corpuscular Volume 91.0 Mean Platelet Volume 8.1 Monocytes # 1.3 H Monocytes % 8.8 Neutrophils # 11.8 H Neutrophils % 82.1 H Nucleated Red Blood Cells # 0.0 Nucleated Red Blood Cells % 0.0 Phosphorus Level 2.6 Platelet Count 288 # Potassium Level 3.8 Prothrombin Time 26.1 H Prothrombin Time Ratio 2.0 Red Blood Count 2.96 L Red Cell Distribution Width 16.4 H Sodium Level 141 Total Bilirubin 0.2 Total Protein 5.7 L Troponin I 0.247 *H White Blood Count 14.4 #H Medications Medications Current Medications Ondansetron HCl (Zofran Inj) 4 mg Q6H PRN IV NAUSEA AND/OR VOMITING; Start 07/16 at 23:30 Morphine Sulfate (morphine) 2 mg Q4H PRN IV SEVERE PAIN LEVEL 7-10; Start 11/09 at 23:30 Clopidogrel Bisulfate (plaVIX) 75 mg DAILY GTB Last administered on 11/15/16 09:26; Admin Dose 75 MG; Start 11/10/16 at 09:00 Warfarin Sodium (Coumadin) 2 mg DAILY@17 GTB Last administered on 11/15/16 17: 32; Admin Dose 2 MG; Start 11/10/16 at 17:00 Lansoprazole (Prevacid) 30 mg DAILY@06 GTB Last administered on 11/16/16 06:22 ; Admin Dose 30 MG; Start 11/13/16 at 06:00 Lactobacillus Acidoph/Bulgaricus (Floranex) 1 tab BID PO Last administered on 21:51; Admin Dose 1 TAB; Start 11/12/16 at 14:00 Carvedilol (Coreg) 3.125 mg BID GTB Last administered on 11/15/16 21:59; Admin Dose 3.125 MG; Start 11/12/16 at 21:00 Lisinopril (Zestril) 2.5 mg DAILY GTB Last administered on 11/15/16 09:26; Admin Dose 2.5 MG; Start 11/13/16 at 09:00 Magnesium Oxide (Mag-Ox 400) 400 mg BID PEG Last administered on 11/15/16 21: 59; Admin Dose 400 MG; Start 11/13/16 at 21:00 Atorvastatin Calcium (Lipitor) 40 mg QHS GTB Last administered on 11/15/16 21: 59; Admin Dose 40 MG; Start 11/14/16 at 21:00 Influenza Virus Vaccine (Fluzone) 0.5 ml ONCE ONCE IM* ; Start 11/16/16 at 10:00 ; Stop 11/16/16 at 10:01 Cholecalciferol (Vitamin D) 2,000 unit DAILY PEG ; Start 11/16/16 at 09:00 Acetaminophen 650 mg 650 mg Q6H PRN PO PAIN AND OR ELEVATED TEMP Last administered on 11/15/16 21:50; Admin Dose 650 MG; Start 11/15/16 at 21:26 Levofloxacin/ Dextrose 100 ml @ 100 mls/hr ONCE IVPB Last administered on 11/15 23:46; Admin Dose 100 MLS/HR; Start 11/15/16 at 23:00; Stop 11/16/16 at 13 :00 Levofloxacin/ Dextrose (Levaquin 250 Mg/ D5W 50 ml (Pmx)) 50 ml @ 50 mls/hr Q24H IVPB ; Start 11/16/16 at 23:00 MARTINEZ WEST MD Nov 16, 2016 09:31
[2016-11-16] MEDS ORDERED: INFLUENZA VIRUS VACCINE 0.5 ML SYG IM* ONE (10:00)
--- NOTE | 2016-11-16 10:26 | PN ---
Date/Time of Note Date/Time of Note DATE: 11/16/16 TIME: 10:10 Assessment/Plan VTE Prophylaxis VTE Prophylaxis Intervention: other (coumadin) Lines/Catheters IV Catheter Type (from Nrs): Saline Lock Urinary Cath still in place: No Assessment/Plan Chief Complaint/Hosp Course S: 11/12 Tolerating feeds @10. Family wants IV placed in leg instead of PICC, which is not the best/recommended care. Weaning on vent. Still encephalopathic/ apparently at baseline neurologically according the family. 11/13 still weaning off vent. For hd today. no family at bedside 11/14 extubated. tolerating feeds. remains encephalopathic ~ aphasic? Diarrhea noted; for rectal tube. 11/15 Events noted. Tachypnea and tachycardia noted. Lots of upper airway secretion but no hypoxia/fever. 11/16 alert; less distress. Daughter updated. still req rectal tube. feeds at 10/ hr? O: vss/hr 90-110 PE No pallor/JVD Reg, no m/r/g Dimin at bases Bs + nt, nd; no r/r/g. Peg c/d/i Ext: + hypotonia; contractures; lt AVf + thrill Neuro: Contractures, dimin symmetrical reflexes A/P 1. Severe sepsis; Encephalopathy w rt lwr lobe pneumonia/pneumonitis. Stable cont pulmonary hygiene/ atb's 2. Pneumonia likely strep/aspiration; Recurent Aspiration? CT chest. recurrent risks explained to daughter; recommended DNR 3. Dysphagia?10/19/16- peg 4. Ischemic stroke '15; on Plavix 5. Probable vascular dementia 6. ESRD mwf HD 7. Functional quadriplegia? 8. Lwr ext edema, -hypotonia; Ford's cyst? 9. Malnutrition. Cont feeds and free water. 10. Constipation 11. Pul Nodule 8 mm pleural; may continue surveillance although not a surgical candidate 12. Abn LFTs; viral process vs statin? No evidence of cholecystitis. 13. Ac toxic encephalopathy/delirium on top of vascular dementia 14. Htn 15. AICD 16. LV clot; on coumadin- [facility] 17. CAD/ pci- 5stents; Ho VFib/ VT arrest/ AICD; bb/plavix; not a candidate for cath/stress. family wants cardio consult. 18. Recent URI 19. Anemia; ho transfusion/ platlets in September. 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 Diarrhea; benign/ antibiotic induced. rectal tube care; change feeds? 22. Tachypnea: Multifactorial, reviewed repeat cxr, follow vital signs. 23. Recurrent Fever; ro recurrent aspiration pneumonia. CT Chest; no evidence cholecystitis; ro uti. Infected Ford's? Ortho eval. Problems: Exam/Review of Systems Vital Signs Vitals Vital Signs Date Time Temp Pulse Resp B/P Pulse Ox O2 Delivery O2 Flow Rate FiO2 11/16/16 08:37 100 11/16/16 07:55 98 21 11/16/16 07:53 20 Nasal Cannula 2.0 11/16/16 07:00 98.4 121/61 Intake and Output 11/15/16 11/15/16 11/16/16 15:00 23:00 07:00 Intake Total 120 ml 620 ml 120 ml Output Total 195 ml Balance -75 ml 620 ml 120 ml Results Result Diagram: 11/16/16 0701 11/16/16 0701 Results 24 hrs Laboratory Tests Test 11/15/16 13:08 11/16/16 07:01 Arterial Blood HCO3 29.7 H Arterial Blood Base Excess 4.8 H Arterial Blood Oxygen Saturation 97.9 Adam Test ACCEPTAB Arterial Blood Gas Puncture Site Right Radial Arterial Blood Carboxyhemoglobin 0.1 Arterial Blood Date Drawn 11/15/2016 1:10:15 PM Arterial Blood Methemoglobin 0.4 Arterial Blood pCO2 (Temp correct) 45.2 H Arterial Blood pH (Temp corrected) 7.435 Arterial Blood pO2 (Temp corrected) 113.7 H Blood Gas A-a O2 Differential 25.4 H Blood Gas Modality NASAL CANNULA Blood Gas Notified Time 11/15/2016 1:23:51 PM Blood Gas Notified Whom JLD Blood Gas Specimen Source Blood arterial Blood Gas Temperature 37.0 FiO2 27.0 Oxyhemoglobin Percent 97.4 Total Hemoglobin 11.5 L Alanine Aminotransferase (ALT/SGPT) 37 Albumin 2.4 L Albumin/Globulin Ratio 0.72 Alkaline Phosphatase 125 H Anion Gap 17 H Aspartate Amino Transf (AST/SGOT) 34 Basophils # 0.0 Basophils % 0.2 Blood Morphology Comment Blood Urea Nitrogen 35 H Calcium Level 8.8 Carbon Dioxide Level 27 Chloride Level 101 Creatinine 4.02 H Direct Bilirubin 0.00 Eosinophils # 0.2 Eosinophils % 1.1 Globulin 3.30 H Glucose Level 94 Hematocrit 26.9 L Hemoglobin 9.0 L INR International Normalized Ratio 2.36 Indirect Bilirubin 0.2 Lymphocytes # 1.1 Lymphocytes % 7.8 L Magnesium Level 2.6 H Mean Corpuscular Hemoglobin 30.5 Mean Corpuscular Hemoglobin Concent 33.5 Mean Corpuscular Volume 91.0 Mean Platelet Volume 8.1 Monocytes # 1.3 H Monocytes % 8.8 Neutrophils # 11.8 H Neutrophils % 82.1 H Nucleated Red Blood Cells # 0.0 Nucleated Red Blood Cells % 0.0 Phosphorus Level 2.6 Platelet Count 288 # Potassium Level 3.8 Prothrombin Time 26.1 H Prothrombin Time Ratio 2.0 Red Blood Count 2.96 L Red Cell Distribution Width 16.4 H Sodium Level 141 Total Bilirubin 0.2 Total Protein 5.7 L Troponin I 0.247 *H White Blood Count 14.4 #H Medications Medications Current Medications Ondansetron HCl (Zofran Inj) 4 mg Q6H PRN IV NAUSEA AND/OR VOMITING; Start 07/16 at 23:30 Morphine Sulfate (morphine) 2 mg Q4H PRN IV SEVERE PAIN LEVEL 7-10; Start 11/09 at 23:30 Clopidogrel Bisulfate (plaVIX) 75 mg DAILY GTB Last administered on 11/15/16 09:26; Admin Dose 75 MG; Start 11/10/16 at 09:00 Warfarin Sodium (Coumadin) 2 mg DAILY@17 GTB Last administered on 11/15/16 17: 32; Admin Dose 2 MG; Start 11/10/16 at 17:00 Lansoprazole (Prevacid) 30 mg DAILY@06 GTB Last administered on 11/16/16 06:22 ; Admin Dose 30 MG; Start 11/13/16 at 06:00 Lactobacillus Acidoph/Bulgaricus (Floranex) 1 tab BID PO Last administered on 21:51; Admin Dose 1 TAB; Start 11/12/16 at 14:00 Carvedilol (Coreg) 3.125 mg BID GTB Last administered on 11/15/16 21:59; Admin Dose 3.125 MG; Start 11/12/16 at 21:00 Lisinopril (Zestril) 2.5 mg DAILY GTB Last administered on 11/15/16 09:26; Admin Dose 2.5 MG; Start 11/13/16 at 09:00 Magnesium Oxide (Mag-Ox 400) 400 mg BID PEG Last administered on 11/15/16 21: 59; Admin Dose 400 MG; Start 11/13/16 at 21:00 Atorvastatin Calcium (Lipitor) 40 mg QHS GTB Last administered on 11/15/16 21: 59; Admin Dose 40 MG; Start 11/14/16 at 21:00 Cholecalciferol (Vitamin D) 2,000 unit DAILY PEG ; Start 11/16/16 at 09:00 Acetaminophen 650 mg 650 mg Q6H PRN PO PAIN AND OR ELEVATED TEMP Last administered on 11/15/16 21:50; Admin Dose 650 MG; Start 11/15/16 at 21:26 Levofloxacin/ Dextrose 100 ml @ 100 mls/hr ONCE IVPB Last administered on 11/15 23:46; Admin Dose 100 MLS/HR; Start 11/15/16 at 23:00; Stop 11/16/16 at 13 :00 Levofloxacin/ Dextrose (Levaquin 250 Mg/ D5W 50 ml (Pmx)) 50 ml @ 50 mls/hr Q24H IVPB ; Start 11/16/16 at 23:00 Epoetin [place] (Epogen (Esrd)) 6,000 units MoWeFr@17 SC ; Start 11/16/16 at 17:00 ALICIA CODY MD Nov 16, 2016 10:25
[2016-11-16] MEDS ORDERED: VANCOMYCIN IV PER PHARMACY XX SCH (10:30)
[2016-11-16] MEDS: CHOLESTYRAMINE (LIGHT) 4 GM PACKET PO SCH ×2 (11:30→21:37)
--- NOTE | 2016-11-16 12:11 | CONS ---
Date/Time of Note Date/Time of Note DATE: 11/16/16 TIME: 12:04 Assessment/Plan Assessment/Plan Chief Complaint/Hosp Course NSTEMI: likely type II in setting of below active issues including fevers/sepsis , respiratory issues. Echo in process. Medical management. Not a cath candidate regardless Acute on chronic encephalopathy: ?from sepsis with underlying severe dementia Aspiration PNA/respiratory failure: Now extubated. Appears relatively comfortable CAD s/p PCI: medical management ICM: check echo for EF. Euvolemic by exam LV thrombus: on coumadin ICD ESRD on HD Dysphagia s/p PEG -continue plavix, lipitor -coumadin -check echo for baseline function -continue lisinopril and coreg as BP tolerates Problems: Consultation Date/Type/Reason Admit Date/Time Nov 09, 2016 at 23:15 Date of Consultation: Nov 16, 2016 Type of Consultation: Cardiology Reason for Consultation NSTEMI Referring Provider: ALICIA CODY MD Hx of Present Illness 66 yo M with a h/o advance dementia, functional quadriplegia, CAD s/p prior stent, ICM (unknown EF), LV thrombus, ICD, ESRD on HD, dysphagia s/p PEG, who presented from HD center for altered mentation and was intubated for respiratory distress. The pt was treated for aspiration PNA and eventually extubated. His mental status per notes has not changed much. Yesterday he had respiratory distress and has been having fevers overnight. A trop was checked this am and was 0.2 so cardiology was consulted. At bedside, there is no family and the pt is nonverbal. unable to obtain Social History Smoking Status: Unknown if ever smoked Exam/Review of Systems Vital Signs Vitals Vital Signs Date Time Temp Pulse Resp B/P Pulse Ox O2 Delivery O2 Flow Rate FiO2 11/16/16 08:37 100 11/16/16 07:55 98 21 11/16/16 07:53 20 Nasal Cannula 2.0 11/16/16 07:00 98.4 121/61 Intake and Output 11/15/16 11/15/16 11/16/16 15:00 23:00 07:00 Intake Total 120 ml 620 ml 120 ml Output Total 195 ml Balance -75 ml 620 ml 120 ml Exam Constitutional: No alert, No distress Head: atraumatic, normocephalic Neck: No jvd Respiratory: diminished breath sounds, No clear to auscultation Cardiovascular: regular rate and rhythm, systolic murmur (2/6), No edema Gastrointestinal: soft, No distended, No non-tender Neurological: No nl mental status, No nl speech Skin: No rash or lesions Results Result Diagram: 11/16/16 0701 11/16/16 0701 Results 24 hrs Laboratory Tests Test 11/15/16 13:08 11/16/16 07:01 Arterial Blood HCO3 29.7 H Arterial Blood Base Excess 4.8 H Arterial Blood Oxygen Saturation 97.9 Adam Test ACCEPTAB Arterial Blood Gas Puncture Site Right Radial Arterial Blood Carboxyhemoglobin 0.1 Arterial Blood Date Drawn 11/15/2016 1:10:15 PM Arterial Blood Methemoglobin 0.4 Arterial Blood pCO2 (Temp correct) 45.2 H Arterial Blood pH (Temp corrected) 7.435 Arterial Blood pO2 (Temp corrected) 113.7 H Blood Gas A-a O2 Differential 25.4 H Blood Gas Modality NASAL CANNULA Blood Gas Notified Time 11/15/2016 1:23:51 PM Blood Gas Notified Whom JLD Blood Gas Specimen Source Blood arterial Blood Gas Temperature 37.0 FiO2 27.0 Oxyhemoglobin Percent 97.4 Total Hemoglobin 11.5 L Alanine Aminotransferase (ALT/SGPT) 37 Albumin 2.4 L Albumin/Globulin Ratio 0.72 Alkaline Phosphatase 125 H Anion Gap 17 H Aspartate Amino Transf (AST/SGOT) 34 Basophils # 0.0 Basophils % 0.2 Blood Morphology Comment Blood Urea Nitrogen 35 H Calcium Level 8.8 Carbon Dioxide Level 27 Chloride Level 101 Creatinine 4.02 H Direct Bilirubin 0.00 Eosinophils # 0.2 Eosinophils % 1.1 Globulin 3.30 H Glucose Level 94 Hematocrit 26.9 L Hemoglobin 9.0 L INR International Normalized Ratio 2.36 Indirect Bilirubin 0.2 Lymphocytes # 1.1 Lymphocytes % 7.8 L Magnesium Level 2.6 H Mean Corpuscular Hemoglobin 30.5 Mean Corpuscular Hemoglobin Concent 33.5 Mean Corpuscular Volume 91.0 Mean Platelet Volume 8.1 Monocytes # 1.3 H Monocytes % 8.8 Neutrophils # 11.8 H Neutrophils % 82.1 H Nucleated Red Blood Cells # 0.0 Nucleated Red Blood Cells % 0.0 Phosphorus Level 2.6 Platelet Count 288 # Potassium Level 3.8 Prothrombin Time 26.1 H Prothrombin Time Ratio 2.0 Red Blood Count 2.96 L Red Cell Distribution Width 16.4 H Sodium Level 141 Total Bilirubin 0.2 Total Protein 5.7 L Troponin I 0.247 *H White Blood Count 14.4 #H Medications Medications Current Medications Ondansetron HCl (Zofran Inj) 4 mg Q6H PRN IV NAUSEA AND/OR VOMITING; Start 07/16 at 23:30 Morphine Sulfate (morphine) 2 mg Q4H PRN IV SEVERE PAIN LEVEL 7-10; Start 11/09 at 23:30 Clopidogrel Bisulfate (plaVIX) 75 mg DAILY GTB Last administered on 11/16/16 09:00; Admin Dose 75 MG; Start 11/10/16 at 09:00 Warfarin Sodium (Coumadin) 2 mg DAILY@17 GTB Last administered on 11/15/16 17: 32; Admin Dose 2 MG; Start 11/10/16 at 17:00 Lansoprazole (Prevacid) 30 mg DAILY@06 GTB Last administered on 11/16/16 06:22 ; Admin Dose 30 MG; Start 11/13/16 at 06:00 Lactobacillus Acidoph/Bulgaricus (Floranex) 1 tab BID PO Last administered on 09:00; Admin Dose 1 TAB; Start 11/12/16 at 14:00 Carvedilol (Coreg) 3.125 mg BID GTB Last administered on 11/15/16 21:59; Admin Dose 3.125 MG; Start 11/12/16 at 21:00 Lisinopril (Zestril) 2.5 mg DAILY GTB Last administered on 11/15/16 09:26; Admin Dose 2.5 MG; Start 11/13/16 at 09:00 Magnesium Oxide (Mag-Ox 400) 400 mg BID PEG Last administered on 11/16/16 09: 00; Admin Dose 400 MG; Start 11/13/16 at 21:00 Atorvastatin Calcium (Lipitor) 40 mg QHS GTB Last administered on 11/15/16 21: 59; Admin Dose 40 MG; Start 11/14/16 at 21:00 Cholecalciferol (Vitamin D) 2,000 unit DAILY PEG Last administered on 09:00; Admin Dose 2,000 UNIT; Start 11/16/16 at 09:00 Acetaminophen (Tylenol Tab) 650 mg Q6H PRN PO PAIN AND OR ELEVATED TEMP Last administered on 11/15/16t 21:50; Admin Dose 650 MG; Start 11/15/16 at 21:26 Epoetin Hadley 6000 units 6,000 units MoWeFr@17 SC ; Start 11/16/16 at 17:00 Levofloxacin/ Dextrose (Levaquin 500mg/ D5W 100 ml (Pmx)) 100 ml @ 50 mls/hr Q48H IVPB ; Start 11/17/16 at 23:00 Cholestyramine Resin (Questran Light) 4 gm BID PO ; Start 11/16/16 at 11:30 MORAIMA RABAGO Nov 16, 2016 12:11
--- NOTE | 2016-11-16 12:37 | CONS ---
Date/Time of Note Date/Time of Note DATE: 11/16/16 TIME: 12:35 Assessment/Plan Assessment/Plan Additional Assessment/Plan Assessment and recommendations; 1. Patient admitted with respiratory failure due to pneumonia with significant clinical improvement. 2. Patient continues to exhibit very poor mental status patient according to the medical records is his underlying mental status. Continue supportive care. We will sign off, thanks for the consult. Consultation Date/Type/Reason Admit Date/Time Nov 09, 2016 at 23:15 Type of Consultation: Pulmonary Referring Provider: ALICIA CODY MD 24 HR Interval Summary Free Text/Dictation Patient condition is significantly improved as far as his ability status is concerned. However has poor mental status. And is unable to give any history by himself whatsoever. General examination; elderly male, currently in no distress. Exam/Review of Systems Vital Signs Vitals Vital Signs Date Time Temp Pulse Resp B/P Pulse Ox O2 Delivery O2 Flow Rate FiO2 11/16/16 08:37 100 11/16/16 07:55 98 21 11/16/16 07:53 20 Nasal Cannula 2.0 11/16/16 07:00 98.4 121/61 Intake and Output 11/15/16 11/15/16 11/16/16 15:00 23:00 07:00 Intake Total 120 ml 620 ml 120 ml Output Total 195 ml Balance -75 ml 620 ml 120 ml Exam HEENT examination; supple neck, no JVD. No lymphadenopathy. No thyromegaly. No stridor. Chest examination; diminished but clear breath sounds bilaterally. S1-S2 audible, no murmurs. Regular rhythm. Abdomen examination; soft, no organomegaly. Bowel sounds audible. Extremity examination; no peripheral edema. 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 Results Result Diagram: 11/16/16 0701 11/16/16 0701 Results 24 hrs Laboratory Tests Test 11/15/16 13:08 11/16/16 07:01 Arterial Blood HCO3 29.7 H Arterial Blood Base Excess 4.8 H Arterial Blood Oxygen Saturation 97.9 Adam Test ACCEPTAB Arterial Blood Gas Puncture Site Right Radial Arterial Blood Carboxyhemoglobin 0.1 Arterial Blood Date Drawn 11/15/2016 1:10:15 PM Arterial Blood Methemoglobin 0.4 Arterial Blood pCO2 (Temp correct) 45.2 H Arterial Blood pH (Temp corrected) 7.435 Arterial Blood pO2 (Temp corrected) 113.7 H Blood Gas A-a O2 Differential 25.4 H Blood Gas Modality NASAL CANNULA Blood Gas Notified Time 11/15/2016 1:23:51 PM Blood Gas Notified Whom JLD Blood Gas Specimen Source Blood arterial Blood Gas Temperature 37.0 FiO2 27.0 Oxyhemoglobin Percent 97.4 Total Hemoglobin 11.5 L Alanine Aminotransferase (ALT/SGPT) 37 Albumin 2.4 L Albumin/Globulin Ratio 0.72 Alkaline Phosphatase 125 H Anion Gap 17 H Aspartate Amino Transf (AST/SGOT) 34 Basophils # 0.0 Basophils % 0.2 Blood Morphology Comment Blood Urea Nitrogen 35 H Calcium Level 8.8 Carbon Dioxide Level 27 Chloride Level 101 Creatinine 4.02 H Direct Bilirubin 0.00 Eosinophils # 0.2 Eosinophils % 1.1 Globulin 3.30 H Glucose Level 94 Hematocrit 26.9 L Hemoglobin 9.0 L INR International Normalized Ratio 2.36 Indirect Bilirubin 0.2 Lymphocytes # 1.1 Lymphocytes % 7.8 L Magnesium Level 2.6 H Mean Corpuscular Hemoglobin 30.5 Mean Corpuscular Hemoglobin Concent 33.5 Mean Corpuscular Volume 91.0 Mean Platelet Volume 8.1 Monocytes # 1.3 H Monocytes % 8.8 Neutrophils # 11.8 H Neutrophils % 82.1 H Nucleated Red Blood Cells # 0.0 Nucleated Red Blood Cells % 0.0 Phosphorus Level 2.6 Platelet Count 288 # Potassium Level 3.8 Prothrombin Time 26.1 H Prothrombin Time Ratio 2.0 Red Blood Count 2.96 L Red Cell Distribution Width 16.4 H Sodium Level 141 Total Bilirubin 0.2 Total Protein 5.7 L Troponin I 0.247 *H White Blood Count 14.4 #H Medications Medications Current Medications Ondansetron HCl (Zofran Inj) 4 mg Q6H PRN IV NAUSEA AND/OR VOMITING; Start 07/16 at 23:30 Morphine Sulfate (morphine) 2 mg Q4H PRN IV SEVERE PAIN LEVEL 7-10; Start 11/09 at 23:30 Clopidogrel Bisulfate (plaVIX) 75 mg DAILY GTB Last administered on 11/16/16 09:00; Admin Dose 75 MG; Start 11/10/16 at 09:00 Warfarin Sodium (Coumadin) 2 mg DAILY@17 GTB Last administered on 11/15/16 17: 32; Admin Dose 2 MG; Start 11/10/16 at 17:00 Lansoprazole (Prevacid) 30 mg DAILY@06 GTB Last administered on 11/16/16 06:22 ; Admin Dose 30 MG; Start 11/13/16 at 06:00 Lactobacillus Acidoph/Bulgaricus (Floranex) 1 tab BID PO Last administered on 09:00; Admin Dose 1 TAB; Start 11/12/16 at 14:00 Carvedilol (Coreg) 3.125 mg BID GTB Last administered on 11/15/16 21:59; Admin Dose 3.125 MG; Start 11/12/16 at 21:00 Lisinopril (Zestril) 2.5 mg DAILY GTB Last administered on 11/15/16 09:26; Admin Dose 2.5 MG; Start 11/13/16 at 09:00 Magnesium Oxide (Mag-Ox 400) 400 mg BID PEG Last administered on 11/16/16 09: 00; Admin Dose 400 MG; Start 11/13/16 at 21:00 Atorvastatin Calcium (Lipitor) 40 mg QHS GTB Last administered on 11/15/16 21: 59; Admin Dose 40 MG; Start 11/14/16 at 21:00 Cholecalciferol (Vitamin D) 2,000 unit DAILY PEG Last administered on 09:00; Admin Dose 2,000 UNIT; Start 11/16/16 at 09:00 Acetaminophen (Tylenol Tab) 650 mg Q6H PRN PO PAIN AND OR ELEVATED TEMP Last administered on 11/15/16 21:50; Admin Dose 650 MG; Start 11/15/16 at 21:26 Epoetin Hadley 6000 units 6,000 units MoWeFr@17 SC ; Start 11/16/16 at 17:00 Levofloxacin/ Dextrose (Levaquin 500mg/ D5W 100 ml (Pmx)) 100 ml @ 50 mls/hr Q48H IVPB ; Start 11/17/16 at 23:00 Cholestyramine Resin (Questran Light) 4 gm BID PO ; Start 11/16/16 at 11:30 FREDDIE BRAGA Nov 16, 2016 12:37
--- NOTE | 2016-11-16 13:22 | RADRPT ---
Echocardiogram Report Patient Name: SIENNA ERNANDEZ Gender: Male Date: 1950 Study Date: 16-Nov-2016 Risk Prevention Engineer: Ayo Brady [facility] Location: 5563 Ref. Physician: ALICIA CODY Quality: Technically Difficult Study Procedures: Transthoracic echocardiogram with complete 2D, M-Mode, and doppler examination. Indications: Evaluate Left Ventricular function. 2D/M Mode Doppler Measurement Value Normal Ranges Measurement Value Normal Ranges LVIDd 2D 5.7 3.5 - 5.6 cm AV Peak Tristan 0.8 m/sec LVIDs 2D 4.8 2.1 - 4.1 cm AV Peak PG 2.5 mmHg LVPWd 2D 1.1 0.6 - 1.1 cm LVOT Peak Tristan 0.8 m/sec IVSd 2D 1.0 0.6 - 1.1 cm LVOT Peak PG 2.8 mmHg AoR Diam 2D 3.2 2.0 - 3.7 cm EDV 2D 160.3 cm3 ESV 2D 107.5 cm3 LA Dimen 2D 4.4 2.3 - 4.0 cm Findings Left Ventricle: Normal left ventricular wall thickness. Mild enlargement of left ventricle cavity. Severe global left ventricular systolic dysfunction. Ejection fraction is visually estimated at 30 %. Multiple segmental wall motion abnormalities. Resting Segmental Wall Motion Analysis: Severe hypokinesis/akinesis of the mid-distal inferolateral wall, mid-distal septum, mid-distal anterolateral and mid-distal anterior wall. Akinesis/dyskinesis of the entire apex. Possible remnant, small (<1cm) mural thrombus seen in limited views. Contrast echo would be needed for more definitive evaluation (Patient is already on anticoagulation therapy). Right Ventricle: Normal right ventricular size. Normal right ventricular systolic function. Left Atrium: There is mild enlargement of left atrium. Right Atrium: There is mild enlargement of right atrium. Mitral Valve: Mild mitral annular calcification. Mild mitral valve regurgitation. Aortic Valve: Aortic cusps appear mildly calcified. Mild aortic valve regurgitation. Tricuspid Valve: Unable to obtain RVSP due to minimal presence of tricuspid regurgitation. Pulmonic Valve: Normal pulmonic valve appearance. Pericardium: Normal pericardium with no significant pericardial effusion. Aorta: Normal aortic root. IVC: The IVC is not well visualized. Conclusions Normal left ventricular wall thickness. Mild enlargement of left ventricle cavity. Severe global left ventricular systolic dysfunction. Ejection fraction is visually estimated at 30 %. Severe hypokinesis/akinesis of the mid-distal inferolateral wall, mid-distal septum, mid-distal anterolateral and mid-distal anterior wall. Akinesis/dyskinesis of the entire apex. Possible remnant, small (<1cm) mural thrombus seen in limited views. Contrast echo would be needed for more definitive evaluation (Patient is already on anticoagulation therapy). Mild aortic valve regurgitation. Unable to estimate PAP or RA pressure. Electronically Signed By: Alexander Huang 16-Nov-2016 13:21:11 -0800 Patient Name: SIENNA ERNANDEZ Study Date: 16-Nov-2016 [id number]
--- NOTE | 2016-11-16 13:37 | RADRPT ---
Vent Rate: 97 bpm RR Interval: 0 msec IA Interval: 126 msec QRS Duration: 112 msec QT Interval: 450 msec QTC Interval: 571 msec P-R-T Ramsay: 39 - -30 - 77 degrees Normal sinus rhythm Left axis deviation Incomplete right bundle branch block Cannot rule out Inferior infarct , age undetermined Prolonged QT Abnormal ECG Electronically Signed By: Mark Fagan [id number]
--- NOTE | 2016-11-16 14:50 | RADRPT ---
PROCEDURE: CT CHEST WITHOUT CONTRAST CLINICAL INDICATION: Fever, respiratory failure TECHNIQUE: Volumetrically acquired images of the thorax obtained without intravenous contrast were reformatted in the axial, coronal, and sagittal planes. CTDI = 13.8 mGy; DLP = 543 mGy-cm. One or more of the following dose reduction technique were used: Automatic exposure control, adjustment of the mA and/or kV according to patient size, and use of iterative reconstruction technique. COMPARISON: Chest x-ray from 11/16/2016. FINDINGS: LOWER NECK AND CHEST WALL: There is a left chest wall generator device. AIRWAYS: The trachea and large airways are normal. LUNGS: There is consolidation seen in the left lower lobe . Lungs otherwise clear. PLEURA: Trace bilateral effusions with associated atelectasis.. MEDIASTINUM: No mediastinal mass. LYMPH NODES: No significant axillary, hilar, or mediastinal lymphadenopathy by CT size criteria. CARDIAC: Moderate cardiomegaly. No pericardial effusion or thickening. VASCULAR: The aorta and main pulmonary artery are normal in caliber. Aortic and coronary atheroscl erotic calcifications are present. OSSEOUS: No suspicious osseous lesions. Scattered degenerative changes of the thoracic spine is vis ualized. Limited evaluation of the upper abdomen demonstrates mildly atrophic kidneys with similar appearing bilateral renal cysts. There is a 80 mm hyperdense cyst seen in the superior pole of the right kidn ey, stable from prior study. IMPRESSION: 1. Left lower lobe consolidation may suggest pneumonia or aspiration.Recommend follow-up CT after ap propriate therapy to document resolution/evolution of findings. Trace bilateral effusions with assoc iated atelectasis. 2. Aortic and coronary atherosclerosis with moderate cardiomegaly. 3. Bilateral atrophic kidneys with renal cysts again demonstrated. These cyst in the right upper p ole is hyperdense, however, soft tissue mass is not fully excluded. If clinically indicated, a yuliet l ultrasound may be useful to further evaluate. RPTAT:PP .Cameron Slater MD, Date Time Electronically viewed and signed by .Cameron Slater MD, MD on 11/16/2016 14:49 .V/
[2016-11-16] MEDS: WARFARIN 2 MG TAB GTB SCH (17:16)
[2016-11-16] MEDS: EPOETIN 3000 UNITS/1 ML INJ (ESRD) SC SCH (17:46)
[2016-11-16] MEDS ORDERED: ALBUMIN HUMAN 25% 100 ML IV ONE (18:00)
[2016-11-16] MEDS: ATORVASTATIN 40 MG TAB GTB SCH (21:36)
[2016-11-16] MEDS ORDERED: LEVOFLOXACIN 250MG/D5W (PMX) 50 ML IVPB SCH (23:00)
[2016-11-17] VITALS (12 sets, daily range): BP systolic 86–142; BP diastolic 52–71; PULSE 94–106; RESP 15–20
[2016-11-17] MEDS: ALBUTEROL 0.083% (NEB) 2.5 MG/3 ML AMP HHN SCH ×3 (00:38→16:33)
[2016-11-17] MEDS: LANSOPRAZOLE 30 MG CAP GTB SCH ×2 (05:33→10:27)
[2016-11-17 08:01] LABS: ALBUMIN 2.8 g/dl (3.3-4.9); POTASSIUM 3.4 mmol/L (3.5-5.1)
[2016-11-17 08:03] LABS: BILIRUBIN,INDIRECT 0.1 mg/dl (0-1.1); BILIRUBIN,TOTAL 0.1 mg/dl (0.2-1.3); CREATININE 3.58 mg/dl (0.61-1.24)
[2016-11-17 08:04] LABS: ALBUMIN/GLOBULIN RATIO 0.8; CALCIUM 8.6 mg/dl (8.4-10.2); PHOSPHORUS 1.5 mg/dl (2.5-4.9); TOTAL PROTEIN 6.3 g/dl (6.1-8.1)
[2016-11-17 08:05] LABS: MAGNESIUM 2.7 mg/dl (1.7-2.5)
[2016-11-17] MEDS: LISINOPRIL 5 MG TAB GTB SCH (09:00)
[2016-11-17] MEDS: CHOLESTYRAMINE (LIGHT) 4 GM PACKET PO SCH ×2 (10:26→20:38)
[2016-11-17] MEDS: CHOLECALCIFEROL 2,000 UNIT CAP PEG SCH (10:26)
[2016-11-17] MEDS: LACTOBACILLUS CHEW TAB PO SCH ×2 (10:27→20:38)
[2016-11-17] MEDS: SEVELAMER CARBONATE 0.8 GM PKT GTB SCH ×3 (10:27→19:02)
[2016-11-17] MEDS: CLOPIDOGREL 75 MG TAB GTB SCH (10:27)
[2016-11-17] MEDS: MAGNESIUM OXIDE 400 MG TAB PEG SCH (10:30)
--- NOTE | 2016-11-17 10:50 | PN ---
Date/Time of Note Date/Time of Note DATE: 11/17/16 TIME: 10:42 Assessment/Plan VTE Prophylaxis VTE Prophylaxis Intervention: other (Coumadin) Lines/Catheters IV [facility] Saline Lock Urinary Cath still in place: No Assessment/Plan Chief Complaint/Hosp Course S: 11/12 Tolerating feeds @10. Family wants IV placed in leg instead of PICC, which is not the best/recommended care. Weaning on vent. Still encephalopathic/ apparently at baseline neurologically according the family. 11/13 still weaning off vent. For hd today. no family at bedside 11/14 extubated. tolerating feeds. remains encephalopathic ~ aphasic? Diarrhea noted; for rectal tube. 11/15 Events noted. Tachypnea and tachycardia noted. Lots of upper airway secretion but no hypoxia/fever. 11/16 alert; less distress. Daughter updated. still req rectal tube. feeds at 10/ hr? 11/17 no events. No further fever, on vanc/Levaquin. Hr improved except for yesterday overnight. 3 BMs. O: vss/hr 90-110 PE No pallor/JVD Reg, no m/r/g Dimin at bases Bs + nt, nd; no r/r/g. Peg c/d/i Ext: + hypotonia; contractures; lt AVf + thrill Neuro: Contractures, dimin symmetrical reflexes A/P 1. Severe sepsis; Encephalopathy w lwr lobe pneumonia/pneumonitis. Stable cont pulmonary hygiene/ atb's 2. Pneumonia likely strep/aspiration; Recurrent Aspiration? sp CT. recurrent risks explained to daughter; recommended DNR 3. Dysphagia?10/19/16- peg 4. Ischemic stroke '15; on Plavix 5. Probable vascular dementia 6. ESRD mwf HD 7. Functional quadriplegia? 8. Lwr ext edema, -hypotonia; 9. Malnutrition. Cont feeds and free water. 10. Constipation 11. Pul Nodule 8 mm pleural; may continue surveillance although not a surgical candidate 12. Abn LFTs; viral process vs statin? No evidence of cholecystitis. 13. Ac toxic encephalopathy/delirium on top of vascular dementia 14. Htn 15. AICD 16. Cardiac thrombus; on coumadin- [facility] 17. CAD/ pci- 5stents; Ho VFib/ VT arrest/ AICD; bb/plavix; not a candidate for cath/stress. cont plavix. 18. Recent URI 19. Anemia; ho transfusion/ platlets in September. 20. Ford's cyst. infected? Ortho eval. 21. Diarrhea; benign/ antibiotic induced. dc magnesium/ppi. add Questran; rectal tube care; +/- change feeds. 22. Tachypnea: Multifactorial, reviewed CT, cont aspiration pneumonia Rx; dc rectal tube lacho. 23. Recurrent Fever; Recurrent aspiration pneumonia? No evidence cholecystitis ; ro uti, Infected Ford's cyst? Ortho eval. 24. Ischemic cardiomyopathy stable continue beta-sanju/ACEi. Problems: Exam/Review of Systems Vital Signs Vitals Vital Signs Date Time Temp Pulse Resp B/P Pulse Ox O2 Delivery O2 Flow Rate FiO2 11/17/16 08:47 2.0 11/17/16 08:47 99 18 97 Nasal Cannula 11/17/16 07:55 98.3 100/55 11/16/16 16:32 21 Intake and Output 11/16/16 11/16/16 11/17/16 15:00 23:00 07:00 Intake Total 120 ml 920 ml 540 ml Output Total 100 ml 2700 ml Balance 20 ml -1780 ml 540 ml Results Result Diagram: 11/16/16 0701 11/17/16 0602 Results 24 hrs Laboratory Tests Test 11/16/16 12:15 11/17/16 06:02 11/17/16 06:08 Random Vancomycin Level 20.5 Alanine Aminotransferase (ALT/SGPT) 40 Albumin 2.8 L Albumin/Globulin Ratio 0.80 Alkaline Phosphatase 154 H Anion Gap 13 Aspartate Amino Transf (AST/SGOT) 47 H Blood Urea Nitrogen 29 H Calcium Level 8.6 Carbon Dioxide Level 30 Chloride Level 98 Creatinine 3.58 H Direct Bilirubin 0.00 Globulin 3.50 H Glucose Level 121 Indirect Bilirubin 0.1 Magnesium Level 2.7 H Phosphorus Level 1.5 #L Potassium Level 3.4 L Sodium Level 138 Total Bilirubin 0.1 L Total Protein 6.3 Troponin I 0.129 *H Medications Medications Current Medications Ondansetron HCl (Zofran Inj) 4 mg Q6H PRN IV NAUSEA AND/OR VOMITING; Start 07/16 at 23:30 Morphine Sulfate (morphine) 2 mg Q4H PRN IV SEVERE PAIN LEVEL 7-10; Start 11/09 at 23:30 Clopidogrel Bisulfate (plaVIX) 75 mg DAILY GTB Last administered on 11/17/16 10:27; Admin Dose 75 MG; Start 11/10/16 at 09:00 Warfarin Sodium (Coumadin) 2 mg DAILY@17 GTB Last administered on 11/16/16 17: 16; Admin Dose 2 MG; Start 11/10/16 at 17:00 Lactobacillus Acidoph/Bulgaricus (Floranex) 1 tab BID PO Last administered on 10:27; Admin Dose 1 TAB; Start 11/12/16 at 14:00 Carvedilol (Coreg) 3.125 mg BID GTB Last administered on 11/16/16 21:37; Admin Dose 3.125 MG; Start 11/12/16 at 21:00 Lisinopril (Zestril) 2.5 mg DAILY GTB Last administered on 11/15/16 09:26; Admin Dose 2.5 MG; Start 11/13/16 at 09:00 Atorvastatin Calcium (Lipitor) 40 mg QHS GTB Last administered on 11/16/16 21: 36; Admin Dose 40 MG; Start 11/14/16 at 21:00 Cholecalciferol (Vitamin D) 2,000 unit DAILY PEG Last administered on 10:26; Admin Dose 2,000 UNIT; Start 11/16/16 at 09:00 Acetaminophen (Tylenol Tab) 650 mg Q6H PRN PO PAIN AND OR ELEVATED TEMP Last administered on 11/15/16 21:50; Admin Dose 650 MG; Start 11/15/16 at 21:26 Epoetin Hadley (Epogen (Esrd)) 6,000 units MoWeFr@17 SC Last administered on 11/16 17:46; Admin Dose 6,000 UNITS; Start 11/16/16 at 17:00 Cholestyramine Resin 4 gm 4 gm BID PO Last administered on 11/17/16 10:26; Admin Dose 4 GM; Start 11/16/16 at 11:30 Vancomycin HCl (Vancocin) 250 ml @ 125 mls/hr 12 IVPB ; Start 11/17/16 at 12:00 ; Stop 11/17/16 at 14:00 Levofloxacin (Levaquin) 500 mg Q48H GTB ; Start 11/17/16 at 11:00; Status UNV Famotidine (Pepcid) 20 mg HS GTB ; Start 11/17/16 at 21:00; Status WINTERV ALICIA CODY MD Nov 17, 2016 10:50
--- NOTE | 2016-11-17 11:10 | CONS ---
Date/Time of Note Date/Time of Note DATE: 11/17/16 TIME: 11:03 Assessment/Plan Assessment/Plan Additional Assessment/Plan 1. Altered mental status likely secondary to sepsis secondary to pneumonia. 2. Acute respiratory failure, on ventilator.s/p Extubation 3. End-stage renal disease on hemodialysis.MWF 4. History of previous stroke resulting in dysphagia status post G-tube placement for feeding purposes. 5. History of hypertension. 6. History of PEG tube placement and arteriovenous fistula for dialysis access. 7. H/o Defibrillator placement PLAN: IV abx for sepsis and PNA, s/p extubation few days before IV abx for luecocytosis troponin went upto 0.2- with some Triplets PVC on Tele monitor,cardiology consulted yesterday we will continue pt on MWF shcedule while being in hospital will continue to follow up Consultation Date/Type/Reason Admit Date/Time Nov 09, 2016 at 23:15 Initial Consult Date 11/10/2016 Type of Consultation: Nephrology Reason for Consultation ESRD on HD Referring Provider: ALICIA CODY MD 24 HR Interval Summary Free Text/Dictation s/p HD yesterday , remained stable Exam/Review of Systems Vital Signs Vitals Vital Signs Date Time Temp Pulse Resp B/P Pulse Ox O2 Delivery O2 Flow Rate FiO2 11/17/16 08:47 2.0 11/17/16 08:47 99 18 97 Nasal Cannula 11/17/16 07:55 98.3 100/55 11/16/16 16:32 21 Intake and Output 11/16/16 11/16/16 11/17/16 15:00 23:00 07:00 Intake Total 120 ml 920 ml 540 ml Output Total 100 ml 2700 ml Balance 20 ml -1780 ml 540 ml Exam NECK: Supple, no JVD or lymphadenopathy. CARDIAC: S1, S2, no added sounds or murmurs. CHEST: bibasilar rales ABDOMEN: Soft, nontender. EXTREMITIES: No cyanosis, clubbing or edema. left forearm aVF with good thrill and bruit Results Result Diagram: 11/16/16 0701 11/17/16 0602 Results 24 hrs Laboratory Tests Test 11/16/16 12:15 11/17/16 06:02 11/17/16 06:08 Random Vancomycin Level 20.5 Alanine Aminotransferase (ALT/SGPT) 40 Albumin 2.8 L Albumin/Globulin Ratio 0.80 Alkaline Phosphatase 154 H Anion Gap 13 Aspartate Amino Transf (AST/SGOT) 47 H Blood Urea Nitrogen 29 H Calcium Level 8.6 Carbon Dioxide Level 30 Chloride Level 98 Creatinine 3.58 H Direct Bilirubin 0.00 Globulin 3.50 H Glucose Level 121 Indirect Bilirubin 0.1 Magnesium Level 2.7 H Phosphorus Level 1.5 #L Potassium Level 3.4 L Sodium Level 138 Total Bilirubin 0.1 L Total Protein 6.3 Troponin I 0.129 *H Medications Medications Current Medications Ondansetron HCl (Zofran Inj) 4 mg Q6H PRN IV NAUSEA AND/OR VOMITING; Start 07/16 at 23:30 Morphine Sulfate (morphine) 2 mg Q4H PRN IV SEVERE PAIN LEVEL 7-10; Start 11/09 at 23:30 Clopidogrel Bisulfate (plaVIX) 75 mg DAILY GTB Last administered on 11/17/16 10:27; Admin Dose 75 MG; Start 11/10/16 at 09:00 Warfarin Sodium (Coumadin) 2 mg DAILY@17 GTB Last administered on 11/16/16 17: 16; Admin Dose 2 MG; Start 11/10/16 at 17:00 Lactobacillus Acidoph/Bulgaricus (Floranex) 1 tab BID PO Last administered on 10:27; Admin Dose 1 TAB; Start 11/12/16 at 14:00 Carvedilol (Coreg) 3.125 mg BID GTB Last administered on 11/16/16 21:37; Admin Dose 3.125 MG; Start 11/12/16 at 21:00 Lisinopril (Zestril) 2.5 mg DAILY GTB Last administered on 11/15/16 09:26; Admin Dose 2.5 MG; Start 11/13/16 at 09:00 Atorvastatin Calcium (Lipitor) 40 mg QHS GTB Last administered on 11/16/16 21: 36; Admin Dose 40 MG; Start 11/14/16 at 21:00 Cholecalciferol (Vitamin D) 2,000 unit DAILY PEG Last administered on 10:26; Admin Dose 2,000 UNIT; Start 11/16/16 at 09:00 Acetaminophen (Tylenol Tab) 650 mg Q6H PRN PO PAIN AND OR ELEVATED TEMP Last administered on 11/15/16 21:50; Admin Dose 650 MG; Start 11/15/16 at 21:26 Epoetin Hadley (Epogen (Esrd)) 6,000 units MoWeFr@17 SC Last administered on 11/16 17:46; Admin Dose 6,000 UNITS; Start 11/16/16 at 17:00 Cholestyramine Resin 4 gm 4 gm BID PO Last administered on 11/17/16 10:26; Admin Dose 4 GM; Start 11/16/16 at 11:30 Vancomycin HCl (Vancocin) 250 ml @ 125 mls/hr 12 IVPB ; Start 11/17/16 at 12:00 ; Stop 11/17/16 at 14:00 Levofloxacin (Levaquin) 500 mg Q48H GTB ; Start 11/17/16 at 11:00 Famotidine (Pepcid) 20 mg HS GTB ; Start 11/17/16 at 21:00 MARTINEZ WEST MD Nov 17, 2016 11:10
[2016-11-17] MEDS ORDERED: VANCOMYCIN 1 GM in NS 250 ML IVPB SCH (12:00)
[2016-11-17] MEDS: LEVOFLOXACIN 500 MG TAB GTB SCH (13:10)
--- NOTE | 2016-11-17 13:16 | CONS ---
DATE OF ADMISSION: 11/09/2016 DATE OF CONSULTATION: 11/17/2016 TYPE OF CONSULTATION: Orthopedic surgical HISTORY OF PRESENT ILLNESS: The patient is a 66-year-old male with known end-stage renal disease on dialysis, who was admitted on 11/09/2016 because of altered mental status. According to the family members, he had been altered for about a week, but was worse during 48 hours prior to his admission . He is also showing signs of sepsis. During the diagnostic studies, a cystic structure was noted in the extremity venous study involving popliteal area of the left knee, which is suggestive of a Ford's cyst and orthopedic surgery was co nsulted. PHYSICAL EXAMINATION: My examination revealed a 66-year-old male who is somnolent and was not able to participate in the history taking or physical examination. He is in lateral decubitus position w ith both knees in a flexed position. There seems to be some degree of flexion contracture of the ri ght knee and the left knee was also held in flexed position; however, there was no obvious flexion c ontracture. Careful palpation did not reveal any significant cystic structures or Ford cyst detect able. There also were no signs of any pyogenic process whatsoever. DIAGNOSTIC IMPRESSION: Possible presence of Ford's cyst, not clinically significant. RECOMMENDATIONS FOR MANAGEMENT: No orthopedic surgical intervention is needed even if the patient h as a Ford's cyst in his condition. There were no signs of any pyogenic process around the left kne e. Dictated By: ELLIE VILLEGAS/DRE Conf#: [id number] DID#: [id number]
[2016-11-17] MEDS: WARFARIN 2 MG TAB GTB SCH (17:00)
--- NOTE | 2016-11-17 20:24 | CONS ---
Date/Time of Note Date/Time of Note DATE: 11/17/16 TIME: 20:22 Assessment/Plan Assessment/Plan Chief Complaint/Hosp Course NSTEMI: likely type II in setting of below active issues including fevers/sepsis , respiratory issues. Medical management, not a cath candidate. Acute on chronic encephalopathy: ? from sepsis with underlying severe dementia Aspiration PNA/respiratory failure: Now extubated. Appears relatively comfortable. CAD s/p PCI: medical management ICM: LVEF 30%. Euvolemic by exam. LV thrombus: on Coumadin ICD ESRD on HD Dysphagia s/p PEG -continue plavix, lipitor -continue coumadin -continue lisinopril and coreg, as BP tolerates Problems: Consultation Date/Type/Reason Admit Date/Time Nov 09, 2016 at 23:15 Initial Consult Date 11/16/16 Type of Consultation: Cardiology 24 HR Interval Summary Free Text/Dictation No acute events. Detailed Summary Additional Comments Unable to obtain review of systems due to patient's mental status. Exam/Review of Systems Vital Signs Vitals Vital Signs Date Time Temp Pulse Resp B/P Pulse Ox O2 Delivery O2 Flow Rate FiO2 11/17/16 17:05 101 11/17/16 16:33 20 98 Nasal Cannula 2.0 11/17/16 16:02 98.6 117/58 11/16/16 16:32 21 Intake and Output 11/16/16 11/16/16 11/17/16 15:00 23:00 07:00 Intake Total 120 ml 920 ml 540 ml Output Total 100 ml 2700 ml Balance 20 ml -1780 ml 540 ml Exam Constitutional: No alert, No distress Head: atraumatic, normocephalic Neck: No jvd Respiratory: diminished breath sounds, No clear to auscultation Cardiovascular: regular rate and rhythm, systolic murmur (2/6), No edema Gastrointestinal: soft, No distended, No non-tender Neurological: No nl mental status, No nl speech Skin: No rash or lesions Results Result Diagram: 11/16/16 0701 11/17/16 0602 Results 24 hrs Laboratory Tests Test 11/17/16 06:02 11/17/16 06:08 Alanine Aminotransferase (ALT/SGPT) 40 Albumin 2.8 L Albumin/Globulin Ratio 0.80 Alkaline Phosphatase 154 H Anion Gap 13 Aspartate Amino Transf (AST/SGOT) 47 H Blood Urea Nitrogen 29 H Calcium Level 8.6 Carbon Dioxide Level 30 Chloride Level 98 Creatinine 3.58 H Direct Bilirubin 0.00 Globulin 3.50 H Glucose Level 121 Indirect Bilirubin 0.1 Magnesium Level 2.7 H Phosphorus Level 1.5 #L Potassium Level 3.4 L Sodium Level 138 Total Bilirubin 0.1 L Total Protein 6.3 Troponin I 0.129 *H Medications Medications Current Medications Ondansetron HCl (Zofran Inj) 4 mg Q6H PRN IV NAUSEA AND/OR VOMITING; Start 07/16 at 23:30 Morphine Sulfate (morphine) 2 mg Q4H PRN IV SEVERE PAIN LEVEL 7-10; Start 11/09 at 23:30 Clopidogrel Bisulfate (plaVIX) 75 mg DAILY GTB Last administered on 11/17/16 10:27; Admin Dose 75 MG; Start 11/10/16 at 09:00 Warfarin Sodium (Coumadin) 2 mg DAILY@17 GTB Last administered on 11/17/16 17: 00; Admin Dose 2 MG; Start 11/10/16 at 17:00 Lactobacillus Acidoph/Bulgaricus (Floranex) 1 tab BID PO Last administered on 10:27; Admin Dose 1 TAB; Start 11/12/16 at 14:00 Carvedilol (Coreg) 3.125 mg BID GTB Last administered on 11/16/16 21:37; Admin Dose 3.125 MG; Start 11/12/16 at 21:00 Lisinopril (Zestril) 2.5 mg DAILY GTB Last administered on 11/15/16 09:26; Admin Dose 2.5 MG; Start 11/13/16 at 09:00 Atorvastatin Calcium (Lipitor) 40 mg QHS GTB Last administered on 11/16/16 21: 36; Admin Dose 40 MG; Start 11/14/16 at 21:00 Cholecalciferol (Vitamin D) 2,000 unit DAILY PEG Last administered on 10:26; Admin Dose 2,000 UNIT; Start 11/16/16 at 09:00 Acetaminophen (Tylenol Tab) 650 mg Q6H PRN PO PAIN AND OR ELEVATED TEMP Last administered on 11/15/16 21:50; Admin Dose 650 MG; Start 11/15/16 at 21:26 Epoetin Hadley (Epogen (Esrd)) 6,000 units MoWeFr@17 SC Last administered on 11/16 17:46; Admin Dose 6,000 UNITS; Start 11/16/16 at 17:00 Cholestyramine Resin (Questran Light) 4 gm BID PO Last administered on 10:26; Admin Dose 4 GM; Start 11/16/16 at 11:30 Levofloxacin (Levaquin) 500 mg Q48H GTB Last administered on 11/17/16 13:10; Admin Dose 500 MG; Start 11/17/16 at 11:00 Famotidine (Pepcid) 20 mg HS GTB ; Start 11/17/16 at 21:00 JIA MALIN MD Nov 17, 2016 20:23
[2016-11-17] MEDS: FAMOTIDINE 20 MG TAB GTB SCH (20:38)
[2016-11-17] MEDS: ATORVASTATIN 40 MG TAB GTB SCH (20:38)
[2016-11-17] MEDS ORDERED: LEVOFLOXACIN 500MG/D5W (PMX) 100 ML IVPB SCH (23:00)
[2016-11-18] VITALS (12 sets, daily range): BP systolic 117–164; BP diastolic 59–75; PULSE 88–100; RESP 18–20
[2016-11-18] MEDS: ALBUTEROL 0.083% (NEB) 2.5 MG/3 ML AMP HHN SCH ×3 (00:32→14:42)
[2016-11-18 08:41] LABS: BASOPHILS % 0.3 % (0.0-2.0); EOSINOPHILS # 0.3 10^3/ul (0.0-0.5); EOSINOPHILS % 2.6 % (0.0-7.0); HEMOGLOBIN 9.5 g/dl (14.0-18.0); LYMPHOCYTES # 1.3 10^3/ul (0.8-2.9); LYMPHOCYTES % 10.9 % (15.0-51.0); MEAN CORPUSCULAR HEMOGLOBIN 30.9 pg (29.0-33.0); MEAN CORPUSCULAR HGB CONC 33.9 g/dl (32.0-37.0); MEAN CORPUSCULAR VOLUME 91.2 fl (82.0-101.0); MEAN PLATELET VOLUME 8.3 fl (7.4-10.4); MONOCYTES % 8.8 % (0.0-11.0); NEUTROPHIL # 9.2 10^3/ul (1.6-7.5); NEUTROPHILS % 77.4 % (39.0-77.0); PLATELET COUNT 310 10^3/UL (140-440); RED BLOOD COUNT 3.07 10^6/ul (4.70-6.10); RED CELL DISTRIBUTION WIDTH 15.8 % (11.5-14.5); UNCORRECTED WBC 11.9 10^3/ul (4.8-10.8); WHITE BLOOD COUNT 11.9 10^3/ul (4.8-10.8)
[2016-11-18 08:45] LABS: CONDITION 1; LH ANALYZER COMMENTS 1
[2016-11-18 08:46] LABS: INR 1.93; PROTIME 22.2 Sec (12.2-14.2); PT RATIO 1.7
[2016-11-18 08:57] LABS: ALBUMIN 2.8 g/dl (3.3-4.9)
[2016-11-18 08:58] LABS: POTASSIUM 3.9 mmol/L (3.5-5.1)
[2016-11-18 08:59] LABS: CREATININE 4.88 mg/dl (0.61-1.24)
[2016-11-18 09:00] LABS: CALCIUM 8.7 mg/dl (8.4-10.2); PHOSPHORUS 1.8 mg/dl (2.5-4.9); TOTAL PROTEIN 6.5 g/dl (6.1-8.1)
[2016-11-18 09:14] LABS: ALBUMIN/GLOBULIN RATIO 0.75
[2016-11-18] MEDS: LACTOBACILLUS CHEW TAB PO SCH ×2 (10:15→20:31)
[2016-11-18] MEDS: SEVELAMER CARBONATE 0.8 GM PKT GTB SCH ×3 (10:16→17:44)
[2016-11-18] MEDS: CHOLESTYRAMINE (LIGHT) 4 GM PACKET PO SCH ×2 (10:16→20:31)
[2016-11-18] MEDS: CLOPIDOGREL 75 MG TAB GTB SCH (10:17)
[2016-11-18] MEDS: LISINOPRIL 5 MG TAB GTB SCH (10:17)
[2016-11-18] MEDS: CHOLECALCIFEROL 2,000 UNIT CAP PEG SCH (10:17)
--- NOTE | 2016-11-18 16:05 | PN ---
Date/Time of Note Date/Time of Note DATE: 11/18/16 TIME: 16:03 Assessment/Plan VTE Prophylaxis VTE Prophylaxis Intervention: other (coumadin) Lines/Catheters IV [facility]from [facility] Urinary Cath still in place: No Assessment/Plan Chief Complaint/Hosp Course S: 11/12 Tolerating feeds @10. Family wants IV placed in leg instead of PICC, which is not the best/recommended care. Weaning on vent. Still encephalopathic/ apparently at baseline neurologically according the family. 11/13 still weaning off vent. For hd today. no family at bedside 11/14 extubated. tolerating feeds. remains encephalopathic ~ aphasic? Diarrhea noted; for rectal tube. 11/15 Events noted. Tachypnea and tachycardia noted. Lots of upper airway secretion but no hypoxia/fever. 11/16 alert; less distress. Daughter updated. still req rectal tube. feeds at 10/ hr? 11/17 no events. No further fever, on vanc/Levaquin. Hr improved except for yesterday overnight. 3 BMs. 11/18 no events; no family at bedside. O: vss PE No pallor/JVD Reg, no m/r/g Dimin at bases Bs + nt, nd; no r/r/g. Peg c/d/i Ext: + hypotonia; contractures; lt AVf + thrill Neuro: Contractures, dimin symmetrical reflexes A/P 1. Severe sepsis; Encephalopathy w lwr lobe pneumonia/pneumonitis. Stable cont pulmonary hygiene/ finish antibiotics 2. Pneumonia likely strep/aspiration; Recurrent Aspiration? sp CT. recurrent risks explained to daughter; recommended DNR 3. Dysphagia?10/19/16- peg 4. Ischemic stroke '15; on Plavix 5. Probable vascular dementia 6. ESRD mwf HD 7. Functional quadriplegia? 8. Lwr ext edema, -hypotonia; 9. Malnutrition. Cont feeds and free water. 10. Constipation 11. Pul Nodule 8 mm pleural; may continue surveillance although not a surgical candidate 12. Abn LFTs; viral process vs statin? No evidence of cholecystitis. 13. Ac toxic encephalopathy/delirium on top of vascular dementia 14. Htn 15. AICD 16. Cardiac thrombus; on coumadin- [facility] 17. CAD/ pci- 5stents; Ho VFib/ VT arrest/ AICD; bb/plavix; not a candidate for cath/stress. cont plavix. 18. Recent URI 19. Anemia; ho transfusion/ platlets in September. 20. 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 Ortho eval appreciated. 21. Diarrhea; benign/ antibiotic induced. dc magnesium/ppi. add Questran; rectal tube care; +/- change feeds. 22. Tachypnea: Multifactorial, reviewed CT, cont aspiration pneumonia Rx; dc rectal tube lacho. 23. Recurrent Fever; Recurrent aspiration pneumonia? No evidence cholecystitis , uti, or Infected Ford's cyst? 24. Ischemic cardiomyopathy stable continue beta-sanju/ACEi. Problems: Exam/Review of Systems Vital Signs Vitals Vital Signs Date Time Temp Pulse Resp B/P Pulse Ox O2 Delivery O2 Flow Rate FiO2 11/18/16 15:54 98.9 98 18 158/63 100 11/18/16 14:44 2.0 11/18/16 14:43 Nasal Cannula 11/16/16 16:32 21 Intake and Output 11/17/16 11/17/16 11/18/16 15:00 23:00 07:00 Intake Total 870 ml 620 ml Output Total 100 ml 100 ml Balance -100 ml 770 ml 620 ml Results Result Diagram: 11/18/16 0725 11/18/16 0725 Results 24 hrs Laboratory Tests Test 11/18/16 07:25 Alanine Aminotransferase (ALT/SGPT) 34 Albumin 2.8 L Albumin/Globulin Ratio 0.75 Alkaline Phosphatase 152 H Anion Gap 15 Aspartate Amino Transf (AST/SGOT) 44 Basophils # 0.0 Basophils % 0.3 Blood Morphology Comment Blood Urea Nitrogen 43 #H Calcium Level 8.7 Carbon Dioxide Level 29 Chloride Level 97 Creatinine 4.88 #H Direct Bilirubin 0.00 Eosinophils # 0.3 Eosinophils % 2.6 Globulin 3.70 H Glucose Level 88 Hematocrit 28.0 L Hemoglobin 9.5 L INR International Normalized Ratio 1.93 Indirect Bilirubin 0.0 Lymphocytes # 1.3 Lymphocytes % 10.9 L Mean Corpuscular Hemoglobin 30.9 Mean Corpuscular Hemoglobin Concent 33.9 Mean Corpuscular Volume 91.2 Mean Platelet Volume 8.3 Monocytes # 1.0 H Monocytes % 8.8 Neutrophils # 9.2 H Neutrophils % 77.4 H Nucleated Red Blood Cells # 0.0 Nucleated Red Blood Cells % 0.0 Phosphorus Level 1.8 L Platelet Count 310 Potassium Level 3.9 Prothrombin Time 22.2 H Prothrombin Time Ratio 1.7 Red Blood Count 3.07 L Red Cell Distribution Width 15.8 H Sodium Level 137 Total Bilirubin 0.0 L Total Protein 6.5 White Blood Count 11.9 H Medications Medications Current Medications Ondansetron HCl (Zofran Inj) 4 mg Q6H PRN IV NAUSEA AND/OR VOMITING; Start 07/16 at 23:30 Morphine Sulfate (morphine) 2 mg Q4H PRN IV SEVERE PAIN LEVEL 7-10; Start 11/09 at 23:30 Clopidogrel Bisulfate (plaVIX) 75 mg DAILY GTB Last administered on 11/18/16 10:17; Admin Dose 75 MG; Start 11/10/16 at 09:00 Warfarin Sodium (Coumadin) 2 mg DAILY@17 GTB Last administered on 11/17/16 17: 00; Admin Dose 2 MG; Start 11/10/16 at 17:00 Lactobacillus Acidoph/Bulgaricus (Floranex) 1 tab BID PO Last administered on 10:15; Admin Dose 1 TAB; Start 11/12/16 at 14:00 Carvedilol (Coreg) 3.125 mg BID GTB Last administered on 11/18/16 10:16; Admin Dose 3.125 MG; Start 11/12/16 at 21:00 Lisinopril (Zestril) 2.5 mg DAILY GTB Last administered on 11/18/16 10:17; Admin Dose 2.5 MG; Start 11/13/16 at 09:00 Atorvastatin Calcium (Lipitor) 40 mg QHS GTB Last administered on 11/17/16 20: 38; Admin Dose 40 MG; Start 11/14/16 at 21:00 Cholecalciferol (Vitamin D) 2,000 unit DAILY PEG Last administered on 10:17; Admin Dose 2,000 UNIT; Start 11/16/16 at 09:00 Acetaminophen (Tylenol Tab) 650 mg Q6H PRN PO PAIN AND OR ELEVATED TEMP Last administered on 11/15/16 21:50; Admin Dose 650 MG; Start 11/15/16 at 21:26 Epoetin Hadley (Epogen (Esrd)) 6,000 units MoWeFr@17 SC Last administered on 11/16 17:46; Admin Dose 6,000 UNITS; Start 11/16/16 at 17:00 Cholestyramine Resin (Questran Light) 4 gm BID PO Last administered on 10:16; Admin Dose 4 GM; Start 11/16/16 at 11:30 Levofloxacin (Levaquin) 500 mg Q48H GTB Last administered on 11/17/16 13:10; Admin Dose 500 MG; Start 11/17/16 at 11:00 Famotidine (Pepcid) 20 mg HS GTB Last administered on 11/17/16 20:38; Admin Dose 20 MG; Start 11/17/16 at 21:00 ALICIA CODY MD Nov 18, 2016 16:05
[2016-11-18] MEDS: WARFARIN 2 MG TAB GTB SCH (17:44)
--- NOTE | 2016-11-18 18:39 | CONS ---
Date/Time of Note Date/Time of Note DATE: 11/18/16 TIME: 18:38 Assessment/Plan Assessment/Plan Additional Assessment/Plan 1. Altered mental status likely secondary to sepsis secondary to pneumonia. 2. Acute respiratory failure, on ventilator.s/p Extubation 3. End-stage renal disease on hemodialysis.MWF 4. History of previous stroke resulting in dysphagia status post G-tube placement for feeding purposes. 5. History of hypertension. 6. History of PEG tube placement and arteriovenous fistula for dialysis access. 7. H/o Defibrillator placement PLAN: IV abx for sepsis and PNA, s/p extubation few days before IV abx for luecocytosis we will continue pt on MWF shcedule while being in hospital will continue to follow up Consultation Date/Type/Reason Admit Date/Time Nov 09, 2016 at 23:15 Initial Consult Date 11/09/2016 Type of Consultation: NEPHROLOGY Reason for Consultation ESRD on HD, admitted with sepsis, fluid overload Referring Provider: FRANCK TROY MD 24 HR Interval Summary Free Text/Dictation no acute events overnight, BP stable, afebrile Exam/Review of Systems Vital Signs Vitals Vital Signs Date Time Temp Pulse Resp B/P Pulse Ox O2 Delivery O2 Flow Rate FiO2 11/18/16 16:24 91 11/18/16 15:54 98.9 18 158/63 100 11/18/16 14:44 2.0 11/18/16 14:43 Nasal Cannula 11/16/16 16:32 21 Intake and Output 11/17/16 11/17/16 11/18/16 15:00 23:00 07:00 Intake Total 520 ml 620 ml Output Total 100 ml 100 ml Balance -100 ml 420 ml 620 ml Exam NECK: Supple, no JVD or lymphadenopathy. CARDIAC: S1, S2, no added sounds or murmurs. CHEST: bibasilar rales ABDOMEN: Soft, nontender. EXTREMITIES: No cyanosis, clubbing or edema. left forearm aVF with good thrill and bruit Results Result Diagram: 11/18/1672411/18/16 0725 Results 24 hrs Laboratory Tests Test 11/18/16 07:25 Alanine Aminotransferase (ALT/SGPT) 34 Albumin 2.8 L Albumin/Globulin Ratio 0.75 Alkaline Phosphatase 152 H Anion Gap 15 Aspartate Amino Transf (AST/SGOT) 44 Basophils # 0.0 Basophils % 0.3 Blood Morphology Comment Blood Urea Nitrogen 43 #H Calcium Level 8.7 Carbon Dioxide Level 29 Chloride Level 97 Creatinine 4.88 #H Direct Bilirubin 0.00 Eosinophils # 0.3 Eosinophils % 2.6 Globulin 3.70 H Glucose Level 88 Hematocrit 28.0 L Hemoglobin 9.5 L INR International Normalized Ratio 1.93 Indirect Bilirubin 0.0 Lymphocytes # 1.3 Lymphocytes % 10.9 L Mean Corpuscular Hemoglobin 30.9 Mean Corpuscular Hemoglobin Concent 33.9 Mean Corpuscular Volume 91.2 Mean Platelet Volume 8.3 Monocytes # 1.0 H Monocytes % 8.8 Neutrophils # 9.2 H Neutrophils % 77.4 H Nucleated Red Blood Cells # 0.0 Nucleated Red Blood Cells % 0.0 Phosphorus Level 1.8 L Platelet Count 310 Potassium Level 3.9 Prothrombin Time 22.2 H Prothrombin Time Ratio 1.7 Red Blood Count 3.07 L Red Cell Distribution Width 15.8 H Sodium Level 137 Total Bilirubin 0.0 L Total Protein 6.5 White Blood Count 11.9 H Medications Medications Current Medications Ondansetron HCl (Zofran Inj) 4 mg Q6H PRN IV NAUSEA AND/OR VOMITING; Start 07/16 at 23:30 Morphine Sulfate (morphine) 2 mg Q4H PRN IV SEVERE PAIN LEVEL 7-10; Start 11/09 at 23:30 Clopidogrel Bisulfate (plaVIX) 75 mg DAILY GTB Last administered on 11/18/16 10:17; Admin Dose 75 MG; Start 11/10/16 at 09:00 Warfarin Sodium (Coumadin) 2 mg DAILY@17 GTB Last administered on 11/18/16 17: 44; Admin Dose 2 MG; Start 11/10/16 at 17:00 Lactobacillus Acidoph/Bulgaricus (Floranex) 1 tab BID PO Last administered on 10:15; Admin Dose 1 TAB; Start 11/12/16 at 14:00 Carvedilol (Coreg) 3.125 mg BID GTB Last administered on 11/18/16 10:16; Admin Dose 3.125 MG; Start 11/12/16 at 21:00 Lisinopril (Zestril) 2.5 mg DAILY GTB Last administered on 11/18/16 10:17; Admin Dose 2.5 MG; Start 11/13/16 at 09:00 Atorvastatin Calcium (Lipitor) 40 mg QHS GTB Last administered on 11/17/16 20: 38; Admin Dose 40 MG; Start 11/14/16 at 21:00 Cholecalciferol (Vitamin D) 2,000 unit DAILY PEG Last administered on 10:17; Admin Dose 2,000 UNIT; Start 11/16/16 at 09:00 Acetaminophen (Tylenol Tab) 650 mg Q6H PRN PO PAIN AND OR ELEVATED TEMP Last administered on 11/15/16 21:50; Admin Dose 650 MG; Start 11/15/16 at 21:26 Epoetin Hadley (Epogen (Esrd)) 6,000 units MoWeFr@17 SC Last administered on 11/16 17:46; Admin Dose 6,000 UNITS; Start 11/16/16 at 17:00 Cholestyramine Resin (Questran Light) 4 gm BID PO Last administered on 10:16; Admin Dose 4 GM; Start 11/16/16 at 11:30 Levofloxacin (Levaquin) 500 mg Q48H GTB Last administered on 11/17/16 13:10; Admin Dose 500 MG; Start 11/17/16 at 11:00 Famotidine (Pepcid) 20 mg HS GTB Last administered on 11/17/16 20:38; Admin Dose 20 MG; Start 11/17/16 at 21:00 MARTINEZ WEST MD Nov 18, 2016 18:39
[2016-11-18] MEDS: FAMOTIDINE 20 MG TAB GTB SCH (20:31)
[2016-11-18] MEDS: ATORVASTATIN 40 MG TAB GTB SCH (20:31)
[2016-11-18] MEDS: ACETAMINOPHEN 325 MG TAB PO PRN (21:17)
[2016-11-19] VITALS (17 sets, daily range): BP systolic 87–178; BP diastolic 46–84; PULSE 87–120; RESP 18–20
[2016-11-19] MEDS: ALBUTEROL 0.083% (NEB) 2.5 MG/3 ML AMP HHN SCH ×4 (01:22→23:34)
[2016-11-19] MEDS: CHOLECALCIFEROL 2,000 UNIT CAP PEG SCH ×2 (08:06→11:34)
[2016-11-19] MEDS: CLOPIDOGREL 75 MG TAB GTB SCH ×2 (08:06→11:34)
[2016-11-19] MEDS: LACTOBACILLUS CHEW TAB PO SCH ×3 (08:06→21:17)
[2016-11-19] MEDS: CHOLESTYRAMINE (LIGHT) 4 GM PACKET PO SCH ×3 (08:06→21:16)
[2016-11-19] MEDS: ACETAMINOPHEN 325 MG TAB PO PRN (08:06)
[2016-11-19] MEDS: SEVELAMER CARBONATE 0.8 GM PKT GTB SCH ×4 (08:06→17:46)
[2016-11-19] MEDS: LISINOPRIL 5 MG TAB GTB SCH ×2 (08:08→09:00)
[2016-11-19 08:30] LABS: BASOPHILS % 0.3 % (0.0-2.0); HEMATOCRIT 30.8 % (42.0-52.0); HEMOGLOBIN 10.4 g/dl (14.0-18.0); LYMPHOCYTES # 1.4 10^3/ul (0.8-2.9); LYMPHOCYTES % 12.8 % (15.0-51.0); MEAN CORPUSCULAR HEMOGLOBIN 30.6 pg (29.0-33.0); MEAN CORPUSCULAR HGB CONC 33.8 g/dl (32.0-37.0); MEAN CORPUSCULAR VOLUME 90.7 fl (82.0-101.0); MEAN PLATELET VOLUME 8.2 fl (7.4-10.4); MONOCYTE # 1.1 10^3/ul (0.3-0.9); MONOCYTES % 10.3 % (0.0-11.0); NEUTROPHIL # 8.5 10^3/ul (1.6-7.5); NEUTROPHILS % 76.6 % (39.0-77.0); PLATELET COUNT 317 10^3/UL (140-440); UNCORRECTED WBC 11.1 10^3/ul (4.8-10.8); WHITE BLOOD COUNT 11.1 10^3/ul (4.8-10.8)
[2016-11-19 08:31] LABS: CONDITION 1; LH ANALYZER COMMENTS 1; POTASSIUM 4.6 mmol/L (3.5-5.1)
[2016-11-19 08:34] LABS: CREATININE 6.09 mg/dl (0.61-1.24)
[2016-11-19 08:35] LABS: CALCIUM 9.1 mg/dl (8.4-10.2)
[2016-11-19 08:36] LABS: INR 1.72; PROTIME 20.3 Sec (12.2-14.2); PT RATIO 1.6
[2016-11-19] MEDS ORDERED: ALBUMIN HUMAN 25% 100 ML IV PRN (09:00)
[2016-11-19] MEDS ORDERED: SOD CHLORIDE 0.9% 250 ML IV ONE (09:30)
[2016-11-19] MEDS ORDERED: ALBUMIN HUMAN 25% 100 ML IV ONE (10:30)
--- NOTE | 2016-11-19 11:14 | PN ---
Date/Time of Note Date/Time of Note DATE: 11/19/16 TIME: 10:56 Assessment/Plan VTE Prophylaxis VTE Prophylaxis Intervention: other (coumadin) Lines/Catheters IV Catheter Type (from Nrs): Saline Lock Urinary Cath still in place: No Assessment/Plan Assessment/Plan 1. Pneumonia likely recurrent aspiration; on levaquin and flagyl 2. Sepsis; septic encephalopathy from pneumonia 3. Dysphagia?10/19/16- peg 4. Ischemic stroke '15; on Plavix 5. Dementia, chronic 6. ESRD mwf HD 7. Functional quadriplegia 8. Cardiac thrombus; on coumadin- [facility] 9. Malnutrition. Cont feeds and free water. 10. Htn 11. AICD 12. Pul Nodule 8 mm pleural; may continue surveillance although not a surgical candidate 13. Abn LFTs; viral process vs statin? No evidence of cholecystitis. 14. CAD/ pci- 5stents; Ho VFib/ VT arrest/ AICD; bb/plavix; not a candidate for cath/stress. cont plavix. 15. 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 17. Ischemic cardiomyopathy stable continue beta-sanju/ACEi. 18. DVT prophylaxis: on coumadin Subjective 24 Hr Interval Summary Free Text/Dictation nonverbal, no respiratory distress Exam/Review of Systems Vital Signs Vitals Vital Signs Date Time Temp Pulse Resp B/P Pulse Ox O2 Delivery O2 Flow Rate FiO2 11/19/16 09:31 104 92/50 11/19/16 08:55 19 11/19/16 08:02 101.0 100 11/19/16 01:22 Nasal Cannula 2.0 11/16/16 16:32 21 Intake and Output 11/18/16 11/18/16 11/19/16 15:00 23:00 07:00 Intake Total 520 ml Output Total 150 ml 100 ml Balance -150 ml 420 ml Exam Constitutional: non-verbal Head: atraumatic, normocephalic Eyes: EOMI, PERRL, nl conjunctiva, nl lids ENMT: nl external ears & nose, nl lips & teeth, nl nasal mucosa & septum Neck: non-tender, supple Respiratory: clear to auscultation Cardiovascular: nl pulses, regular rate and rhythm Gastrointestinal: nl liver, spleen, soft, No ascites, No bowel sounds, No distended, No firm, No hepatomegaly, No mass , No rebound or guarding, No splenomegaly, No surgical scars Musculoskeletal: nl extremities to inspection Extremities: normal pulses, No clubbing, No cyanosis, No edema, No pitting pedal edema Neurological: confused, lethargic Skin: nl turgor, rash or lesions Lymph: nl lymph nodes Results Result Diagram: 11/19/16 0720 11/19/16 0720 Results 24 hrs Laboratory Tests Test 11/19/16 07:20 Anion Gap 16 Basophils # 0.0 Basophils % 0.3 Blood Morphology Comment Blood Urea Nitrogen 59 H Calcium Level 9.1 Carbon Dioxide Level 28 Chloride Level 96 L Creatinine 6.09 H Eosinophils # 0.0 Eosinophils % 0.0 Glucose Level 92 Hematocrit 30.8 L Hemoglobin 10.4 L INR International Normalized Ratio 1.72 Lymphocytes # 1.4 Lymphocytes % 12.8 L Mean Corpuscular Hemoglobin 30.6 Mean Corpuscular Hemoglobin Concent 33.8 Mean Corpuscular Volume 90.7 Mean Platelet Volume 8.2 Monocytes # 1.1 H Monocytes % 10.3 Neutrophils # 8.5 H Neutrophils % 76.6 Nucleated Red Blood Cells # 0.0 Nucleated Red Blood Cells % 0.0 Platelet Count 317 Potassium Level 4.6 Prothrombin Time 20.3 H Prothrombin Time Ratio 1.6 Red Blood Count 3.40 L Red Cell Distribution Width 16.0 H Sodium Level 135 White Blood Count 11.1 H Medications Medications Current Medications Ondansetron HCl (Zofran Inj) 4 mg Q6H PRN IV NAUSEA AND/OR VOMITING; Start 07/16 at 23:30 Morphine Sulfate (morphine) 2 mg Q4H PRN IV SEVERE PAIN LEVEL 7-10; Start 11/09 at 23:30 Clopidogrel Bisulfate (plaVIX) 75 mg DAILY GTB Last administered on 11/19/16 08:06; Admin Dose 75 MG; Start 11/10/16 at 09:00 Warfarin Sodium (Coumadin) 2 mg DAILY@17 GTB Last administered on 11/18/16 17: 44; Admin Dose 2 MG; Start 11/10/16 at 17:00 Lactobacillus Acidoph/Bulgaricus (Floranex) 1 tab BID PO Last administered on 20:31; Admin Dose 1 TAB; Start 11/12/16 at 14:00 Carvedilol (Coreg) 3.125 mg BID GTB Last administered on 11/19/16 08:09; Admin Dose 3.125 MG; Start 11/12/16 at 21:00 Lisinopril (Zestril) 2.5 mg DAILY GTB Last administered on 11/18/16 10:17; Admin Dose 2.5 MG; Start 11/13/16 at 09:00 Atorvastatin Calcium (Lipitor) 40 mg QHS GTB Last administered on 11/18/16 20: 31; Admin Dose 40 MG; Start 11/14/16 at 21:00 Cholecalciferol (Vitamin D) 2,000 unit DAILY PEG Last administered on 10:17; Admin Dose 2,000 UNIT; Start 11/16/16 at 09:00 Acetaminophen (Tylenol Tab) 650 mg Q6H PRN PO PAIN AND OR ELEVATED TEMP Last administered on 11/19/16 08:06; Admin Dose 650 MG; Start 11/15/16 at 21:26 Epoetin Hadley (Epogen (Esrd)) 6,000 units MoWeFr@17 SC Last administered on 11/16 17:46; Admin Dose 6,000 UNITS; Start 11/16/16 at 17:00 Cholestyramine Resin (Questran Light) 4 gm BID PO Last administered on 20:31; Admin Dose 4 GM; Start 11/16/16 at 11:30 Levofloxacin (Levaquin) 500 mg Q48H GTB Last administered on 11/17/16 13:10; Admin Dose 500 MG; Start 11/17/16 at 11:00 Famotidine 20 mg 20 mg HS GTB Last administered on 11/18/16 20:31; Admin Dose 20 MG; Start 11/17/16 at 21:00 Albumin Human 100 ml @ 100 mls/hr ONCE ONCE IV ; Start 11/19/16 at 10:30; Stop 11/19/16 at 11:29 Sodium Chloride (NS) 250 ml @ 75 mls/hr Q3H20M ONCE IV ; Start 11/19/16 at 09: 30; Stop 11/19/16 at 12:49 BRIGHT CHEN MD Nov 19, 2016 11:06
[2016-11-19] MEDS: LEVOFLOXACIN 500 MG TAB GTB SCH (11:34)
[2016-11-19] MEDS: metroNIDAZOLE 500 MG/NS (PMX) 100 ML IVPB SCH ×2 (14:58→21:24)
--- NOTE | 2016-11-19 17:44 | CONS ---
Date/Time of Note Date/Time of Note DATE: 11/19/16 TIME: 17:43 Assessment/Plan Assessment/Plan Chief Complaint/Hosp Course NSTEMI: likely type II in setting of below active issues including fevers/sepsis , respiratory issues. Medical management, not a cath candidate. Acute on chronic encephalopathy: ? from sepsis with underlying severe dementia Aspiration PNA/respiratory failure: Now extubated. Appears relatively comfortable. CAD s/p PCI: medical management ICM: LVEF 30%. Euvolemic by exam. LV thrombus: on Coumadin ICD ESRD on HD Dysphagia s/p PEG -continue plavix, lipitor -continue coumadin -continue lisinopril and coreg, as BP tolerates -will follow up as needed Problems: Consultation Date/Type/Reason Admit Date/Time Nov 09, 2016 at 23:15 Initial Consult Date 11/16/16 Type of Consultation: Cardiology 24 HR Interval Summary Free Text/Dictation No acute events. Detailed Summary Additional Comments Unable to obtain review of systems due to patient's mental status. Exam/Review of Systems Vital Signs Vitals Vital Signs Date Time Temp Pulse Resp B/P Pulse Ox O2 Delivery O2 Flow Rate FiO2 11/19/16 15:28 98.9 96 20 121/58 100 11/19/16 12:57 2.0 11/19/16 12:51 Nasal Cannula 11/16/16 16:32 21 Intake and Output 11/18/16 11/18/16 11/19/16 15:00 23:00 07:00 Intake Total 520 ml Output Total 150 ml 100 ml Balance -150 ml 420 ml Exam Constitutional: No alert, No distress Head: atraumatic, normocephalic Neck: No jvd Respiratory: diminished breath sounds, No clear to auscultation Cardiovascular: regular rate and rhythm, systolic murmur (2/6), No edema Gastrointestinal: soft, No distended, No non-tender Neurological: No nl mental status, No nl speech Skin: No rash or lesions Results Result Diagram: 11/19/16 0720 11/19/16 0720 Results 24 hrs Laboratory Tests Test 11/19/16 07:20 Anion Gap 16 Basophils # 0.0 Basophils % 0.3 Blood Morphology Comment Blood Urea Nitrogen 59 H Calcium Level 9.1 Carbon Dioxide Level 28 Chloride Level 96 L Creatinine 6.09 H Eosinophils # 0.0 Eosinophils % 0.0 Glucose Level 92 Hematocrit 30.8 L Hemoglobin 10.4 L INR International Normalized Ratio 1.72 Lymphocytes # 1.4 Lymphocytes % 12.8 L Mean Corpuscular Hemoglobin 30.6 Mean Corpuscular Hemoglobin Concent 33.8 Mean Corpuscular Volume 90.7 Mean Platelet Volume 8.2 Monocytes # 1.1 H Monocytes % 10.3 Neutrophils # 8.5 H Neutrophils % 76.6 Nucleated Red Blood Cells # 0.0 Nucleated Red Blood Cells % 0.0 Platelet Count 317 Potassium Level 4.6 Prothrombin Time 20.3 H Prothrombin Time Ratio 1.6 Red Blood Count 3.40 L Red Cell Distribution Width 16.0 H Sodium Level 135 White Blood Count 11.1 H Medications Medications Current Medications Ondansetron HCl (Zofran Inj) 4 mg Q6H PRN IV NAUSEA AND/OR VOMITING; Start 07/16 at 23:30 Morphine Sulfate (morphine) 2 mg Q4H PRN IV SEVERE PAIN LEVEL 7-10; Start 11/09 at 23:30 Clopidogrel Bisulfate (plaVIX) 75 mg DAILY GTB Last administered on 11/19/16 11:34; Admin Dose 75 MG; Start 11/10/16 at 09:00 Warfarin Sodium (Coumadin) 2 mg DAILY@17 GTB Last administered on 11/18/16 17: 44; Admin Dose 2 MG; Start 11/10/16 at 17:00 Lactobacillus Acidoph/Bulgaricus (Floranex) 1 tab BID PO Last administered on 11:34; Admin Dose 1 TAB; Start 11/12/16 at 14:00 Carvedilol (Coreg) 3.125 mg BID GTB Last administered on 11/19/16 08:09; Admin Dose 3.125 MG; Start 11/12/16 at 21:00 Lisinopril (Zestril) 2.5 mg DAILY GTB Last administered on 11/18/16 10:17; Admin Dose 2.5 MG; Start 11/13/16 at 09:00 Atorvastatin Calcium (Lipitor) 40 mg QHS GTB Last administered on 11/18/16 20: 31; Admin Dose 40 MG; Start 11/14/16 at 21:00 Cholecalciferol (Vitamin D) 2,000 unit DAILY PEG Last administered on 11:34; Admin Dose 2,000 UNIT; Start 11/16/16 at 09:00 Acetaminophen (Tylenol Tab) 650 mg Q6H PRN PO PAIN AND OR ELEVATED TEMP Last administered on 11/19/16 08:06; Admin Dose 650 MG; Start 11/15/16 at 21:26 Epoetin Hadley (Epogen (Esrd)) 6,000 units MoWeFr@17 SC Last administered on 11/16 17:46; Admin Dose 6,000 UNITS; Start 11/16/16 at 17:00 Cholestyramine Resin (Questran Light) 4 gm BID PO Last administered on 11:36; Admin Dose 4 GM; Start 11/16/16 at 11:30 Levofloxacin (Levaquin) 500 mg Q48H GTB Last administered on 11/19/16 11:34; Admin Dose 500 MG; Start 11/17/16 at 11:00 Famotidine 20 mg 20 mg HS GTB Last administered on 11/18/16 20:31; Admin Dose 20 MG; Start 11/17/16 at 21:00 Metronidazole (Flagyl 500 Mg (Pmx)) 100 ml @ 100 mls/hr Q8 IVPB Last administered on 11/19/16 14:58; Admin Dose 100 MLS/HR; Start 11/19/16 at 14:00 JIA MALIN MD Nov 19, 2016 17:44
[2016-11-19] MEDS: WARFARIN 2 MG TAB GTB SCH (17:46)
[2016-11-19] MEDS: EPOETIN 3000 UNITS/1 ML INJ (ESRD) SC SCH (17:59)
[2016-11-19] MEDS: ATORVASTATIN 40 MG TAB GTB SCH (21:17)
[2016-11-19] MEDS: FAMOTIDINE 20 MG TAB GTB SCH (21:17)
--- NOTE | 2016-11-19 22:29 | CONS ---
Date/Time of Note Date/Time of Note DATE: 11/19/16 TIME: 22:26 Assessment/Plan Assessment/Plan Additional Assessment/Plan 1. Altered mental status likely secondary to sepsis secondary to pneumonia. 2. Acute respiratory failure, on ventilator.s/p Extubation 3. End-stage renal disease on hemodialysis.MWF 4. History of previous stroke resulting in dysphagia status post G-tube placement for feeding purposes. 5. History of hypertension. 6. History of PEG tube placement and arteriovenous fistula for dialysis access. 7. H/o Defibrillator placement PLAN: IV abx for sepsis and PNA, s/p extubation few days before IV abx for luecocytosis HD today then will continue HD MWF will continue to follow up Consultation Date/Type/Reason Admit Date/Time Nov 09, 2016 at 23:15 Initial Consult Date 11/09/2016 Type of Consultation: NEPHROLOGY Reason for Consultation ESRD on HD, admitted with sepsis, fluid overload Referring Provider: MELI MENDEZ MD 24 HR Interval Summary Free Text/Dictation pt stable, s/p HD today 370 cc removed Exam/Review of Systems Vital Signs Vitals Vital Signs Date Time Temp Pulse Resp B/P Pulse Ox O2 Delivery O2 Flow Rate FiO2 11/19/16 22:07 90 11/19/16 20:44 98.3 18 129/60 100 11/19/16 12:57 2.0 11/19/16 12:51 Nasal Cannula 11/16/16 16:32 21 Intake and Output 11/18/16 11/18/16 11/19/16 15:00 23:00 07:00 Intake Total 520 ml Output Total 150 ml 100 ml Balance -150 ml 420 ml Exam NECK: Supple, no JVD or lymphadenopathy. CARDIAC: S1, S2, no added sounds or murmurs. CHEST: bibasilar rales ABDOMEN: Soft, nontender. EXTREMITIES: No cyanosis, clubbing or edema. left forearm aVF with good thrill and bruit Results Result Diagram: 11/19/16 0720 11/19/16 0720 Results 24 hrs Laboratory Tests Test 11/19/16 07:20 Anion Gap 16 Basophils # 0.0 Basophils % 0.3 Blood Morphology Comment Blood Urea Nitrogen 59 H Calcium Level 9.1 Carbon Dioxide Level 28 Chloride Level 96 L Creatinine 6.09 H Eosinophils # 0.0 Eosinophils % 0.0 Glucose Level 92 Hematocrit 30.8 L Hemoglobin 10.4 L INR International Normalized Ratio 1.72 Lymphocytes # 1.4 Lymphocytes % 12.8 L Mean Corpuscular Hemoglobin 30.6 Mean Corpuscular Hemoglobin Concent 33.8 Mean Corpuscular Volume 90.7 Mean Platelet Volume 8.2 Monocytes # 1.1 H Monocytes % 10.3 Neutrophils # 8.5 H Neutrophils % 76.6 Nucleated Red Blood Cells # 0.0 Nucleated Red Blood Cells % 0.0 Platelet Count 317 Potassium Level 4.6 Prothrombin Time 20.3 H Prothrombin Time Ratio 1.6 Red Blood Count 3.40 L Red Cell Distribution Width 16.0 H Sodium Level 135 White Blood Count 11.1 H Medications Medications Current Medications Ondansetron HCl (Zofran Inj) 4 mg Q6H PRN IV NAUSEA AND/OR VOMITING; Start 07/16 at 23:30 Morphine Sulfate (morphine) 2 mg Q4H PRN IV SEVERE PAIN LEVEL 7-10; Start 11/09 at 23:30 Clopidogrel Bisulfate (plaVIX) 75 mg DAILY GTB Last administered on 11/19/16 11:34; Admin Dose 75 MG; Start 11/10/16 at 09:00 Warfarin Sodium (Coumadin) 2 mg DAILY@17 GTB Last administered on 11/19/16 17: 46; Admin Dose 2 MG; Start 11/10/16 at 17:00 Lactobacillus Acidoph/Bulgaricus (Floranex) 1 tab BID PO Last administered on 21:17; Admin Dose 1 TAB; Start 11/12/16 at 14:00 Carvedilol (Coreg) 3.125 mg BID GTB Last administered on 11/19/16 21:17; Admin Dose 3.125 MG; Start 11/12/16 at 21:00 Lisinopril (Zestril) 2.5 mg DAILY GTB Last administered on 11/18/16 10:17; Admin Dose 2.5 MG; Start 11/13/16 at 09:00 Atorvastatin Calcium (Lipitor) 40 mg QHS GTB Last administered on 11/19/16 21: 17; Admin Dose 40 MG; Start 11/14/16 at 21:00 Cholecalciferol (Vitamin D) 2,000 unit DAILY PEG Last administered on 11:34; Admin Dose 2,000 UNIT; Start 11/16/16 at 09:00 Acetaminophen (Tylenol Tab) 650 mg Q6H PRN PO PAIN AND OR ELEVATED TEMP Last administered on 11/19/16 08:06; Admin Dose 650 MG; Start 11/15/16 at 21:26 Epoetin Hadley (Epogen (Esrd)) 6,000 units MoWeFr@17 SC Last administered on 11/19 17:59; Admin Dose 6,000 UNITS; Start 11/16/16 at 17:00 Cholestyramine Resin (Questran Light) 4 gm BID PO Last administered on 21:16; Admin Dose 4 GM; Start 11/16/16 at 11:30 Levofloxacin (Levaquin) 500 mg Q48H GTB Last administered on 11/19/16 11:34; Admin Dose 500 MG; Start 11/17/16 at 11:00 Famotidine 20 mg 20 mg HS GTB Last administered on 11/19/16 21:17; Admin Dose 20 MG; Start 11/17/16 at 21:00 Metronidazole (Flagyl 500 Mg (Pmx)) 100 ml @ 100 mls/hr Q8 IVPB Last administered on 11/19/16 21:24; Admin Dose 100 MLS/HR; Start 11/19/16 at 14:00 MARTINEZ WEST MD Nov 19, 2016 22:29
[2016-11-20] VITALS (11 sets, daily range): BP systolic 109–149; BP diastolic 52–68; PULSE 94–105; RESP 18–20
[2016-11-20] MEDS: metroNIDAZOLE 500 MG/NS (PMX) 100 ML IVPB SCH ×3 (05:39→21:25)
[2016-11-20 07:48] LABS: POTASSIUM 4.9 mmol/L (3.5-5.1)
[2016-11-20 07:50] LABS: CREATININE 6.02 mg/dl (0.61-1.24)
[2016-11-20 07:51] LABS: CALCIUM 8.9 mg/dl (8.4-10.2)
[2016-11-20 07:57] LABS: INR 1.72; PROTIME 20.3 Sec (12.2-14.2); PT RATIO 1.6
[2016-11-20 08:02] LABS: BASOPHILS % 0.4 % (0.0-2.0); EOSINOPHILS # 0.2 10^3/ul (0.0-0.5); EOSINOPHILS % 1.9 % (0.0-7.0); HEMATOCRIT 28.6 % (42.0-52.0); HEMOGLOBIN 9.6 g/dl (14.0-18.0); LYMPHOCYTES # 1.4 10^3/ul (0.8-2.9); LYMPHOCYTES % 12.6 % (15.0-51.0); MEAN CORPUSCULAR HEMOGLOBIN 30.7 pg (29.0-33.0); MEAN CORPUSCULAR HGB CONC 33.6 g/dl (32.0-37.0); MEAN CORPUSCULAR VOLUME 91.6 fl (82.0-101.0); MEAN PLATELET VOLUME 8.5 fl (7.4-10.4); MONOCYTE # 1.5 10^3/ul (0.3-0.9); MONOCYTES % 13.9 % (0.0-11.0); NEUTROPHIL # 7.6 10^3/ul (1.6-7.5); NEUTROPHILS % 71.2 % (39.0-77.0); PLATELET COUNT 244 10^3/UL (140-440); RED BLOOD COUNT 3.12 10^6/ul (4.70-6.10); RED CELL DISTRIBUTION WIDTH 16.6 % (11.5-14.5); UNCORRECTED WBC 10.7 10^3/ul (4.8-10.8); WHITE BLOOD COUNT 10.7 10^3/ul (4.8-10.8)
[2016-11-20 08:04] LABS: CONDITION 1; LH ANALYZER COMMENTS 1
[2016-11-20] MEDS: ALBUTEROL 0.083% (NEB) 2.5 MG/3 ML AMP HHN SCH ×2 (09:11→16:14)
[2016-11-20] MEDS: CHOLESTYRAMINE (LIGHT) 4 GM PACKET PO SCH ×2 (09:15→21:25)
[2016-11-20] MEDS: CLOPIDOGREL 75 MG TAB GTB SCH (09:15)
[2016-11-20] MEDS: CHOLECALCIFEROL 2,000 UNIT CAP PEG SCH (09:15)
[2016-11-20] MEDS: LISINOPRIL 5 MG TAB GTB SCH ×2 (09:15→09:28)
[2016-11-20] MEDS: SEVELAMER CARBONATE 0.8 GM PKT GTB SCH ×3 (09:15→17:27)
[2016-11-20] MEDS: LACTOBACILLUS CHEW TAB PO SCH ×2 (09:15→21:25)
--- NOTE | 2016-11-20 12:17 | CONS ---
Date/Time of Note Date/Time of Note DATE: 11/20/16 TIME: 12:14 Assessment/Plan Assessment/Plan Additional Assessment/Plan 1. Altered mental status likely secondary to sepsis secondary to pneumonia. 2. Acute respiratory failure, on ventilator.s/p Extubation 3. End-stage renal disease on hemodialysis.MWF 4. History of previous stroke resulting in dysphagia status post G-tube placement for feeding purposes. 5. History of hypertension. 6. History of PEG tube placement and arteriovenous fistula for dialysis access. 7. H/o Defibrillator placement PLAN: IV abx for sepsis and PNA, s/p extubation few days before IV abx for luecocytosis HD today then will continue HD MWF will continue to follow up Consultation Date/Type/Reason Admit Date/Time Nov 09, 2016 at 23:15 Initial Consult Date 11/09/2016 Type of Consultation: NEPHROLOGY Reason for Consultation ESRD on HD, with sepsis fluid overload Referring Provider: MELI MENDEZ MD 24 HR Interval Summary Free Text/Dictation s/p HD yesterday, no HD today,afebrile, BP stable Exam/Review of Systems Vital Signs Vitals Vital Signs Date Time Temp Pulse Resp B/P Pulse Ox O2 Delivery O2 Flow Rate FiO2 11/20/16 09:47 102 11/20/16 09:11 24 98 Nasal Cannula 2.0 11/20/16 09:07 98.9 135/63 11/16/16 16:32 21 Intake and Output 11/19/16 11/19/16 11/20/16 15:00 23:00 07:00 Intake Total 600 ml 840 ml 670 ml Output Total 600 ml Balance 0 ml 840 ml 670 ml Exam NECK: Supple, no JVD or lymphadenopathy. CARDIAC: S1, S2, no added sounds or murmurs. CHEST: bibasilar rales ABDOMEN: Soft, nontender. EXTREMITIES: No cyanosis, clubbing or edema. left forearm aVF with good thrill and bruit Results Result Diagram: 11/20/16 0713 11/20/16 0710 Results 24 hrs Laboratory Tests Test 11/20/16 07:10 11/20/16 07:13 Anion Gap 18 H Blood Urea Nitrogen 63 H Calcium Level 8.9 Carbon Dioxide Level 24 Chloride Level 97 Creatinine 6.02 H Glucose Level 102 Potassium Level 4.9 Sodium Level 134 L Basophils # 0.0 Basophils % 0.4 Blood Morphology Comment Eosinophils # 0.2 Eosinophils % 1.9 Hematocrit 28.6 L Hemoglobin 9.6 L INR International Normalized Ratio 1.72 Lymphocytes # 1.4 Lymphocytes % 12.6 L Mean Corpuscular Hemoglobin 30.7 Mean Corpuscular Hemoglobin Concent 33.6 Mean Corpuscular Volume 91.6 Mean Platelet Volume 8.5 Monocytes # 1.5 H Monocytes % 13.9 H Neutrophils # 7.6 H Neutrophils % 71.2 Nucleated Red Blood Cells # 0.0 Nucleated Red Blood Cells % 0.0 Platelet Count 244 # Prothrombin Time 20.3 H Prothrombin Time Ratio 1.6 Red Blood Count 3.12 L Red Cell Distribution Width 16.6 H White Blood Count 10.7 Medications Medications Current Medications Ondansetron HCl (Zofran Inj) 4 mg Q6H PRN IV NAUSEA AND/OR VOMITING; Start 07/16 at 23:30 Morphine Sulfate (morphine) 2 mg Q4H PRN IV SEVERE PAIN LEVEL 7-10; Start 11/09 at 23:30 Clopidogrel Bisulfate (plaVIX) 75 mg DAILY GTB Last administered on 11/20/16 09:15; Admin Dose 75 MG; Start 11/10/16 at 09:00 Warfarin Sodium (Coumadin) 2 mg DAILY@17 GTB Last administered on 11/19/16 17: 46; Admin Dose 2 MG; Start 11/10/16 at 17:00 Lactobacillus Acidoph/Bulgaricus (Floranex) 1 tab BID PO Last administered on 09:15; Admin Dose 1 TAB; Start 11/12/16 at 14:00 Carvedilol (Coreg) 3.125 mg BID GTB Last administered on 11/20/16 09:26; Admin Dose 3.125 MG; Start 11/12/16 at 21:00 Lisinopril (Zestril) 2.5 mg DAILY GTB Last administered on 11/20/16 09:28; Admin Dose 2.5 MG; Start 11/13/16 at 09:00 Atorvastatin Calcium (Lipitor) 40 mg QHS GTB Last administered on 11/19/16 21: 17; Admin Dose 40 MG; Start 11/14/16 at 21:00 Cholecalciferol (Vitamin D) 2,000 unit DAILY PEG Last administered on 09:15; Admin Dose 2,000 UNIT; Start 11/16/16 at 09:00 Acetaminophen (Tylenol Tab) 650 mg Q6H PRN PO PAIN AND OR ELEVATED TEMP Last administered on 11/19/16 08:06; Admin Dose 650 MG; Start 11/15/16 at 21:26 Epoetin Hadley (Epogen (Esrd)) 6,000 units MoWeFr@17 SC Last administered on 11/19 17:59; Admin Dose 6,000 UNITS; Start 11/16/16 at 17:00 Cholestyramine Resin (Questran Light) 4 gm BID PO Last administered on 09:15; Admin Dose 4 GM; Start 11/16/16 at 11:30 Levofloxacin (Levaquin) 500 mg Q48H GTB Last administered on 11/19/16 11:34; Admin Dose 500 MG; Start 11/17/16 at 11:00 Famotidine 20 mg 20 mg HS GTB Last administered on 11/19/16 21:17; Admin Dose 20 MG; Start 11/17/16 at 21:00 Metronidazole (Flagyl 500 Mg (Pmx)) 100 ml @ 100 mls/hr Q8 IVPB Last administered on 11/20/16 05:39; Admin Dose 100 MLS/HR; Start 11/19/16 at 14:00 MARTINEZ WEST MD Nov 20, 2016 12:17
--- NOTE | 2016-11-20 13:52 | PN ---
Date/Time of Note Date/Time of Note DATE: 11/20/16 TIME: 13:47 Assessment/Plan VTE Prophylaxis VTE Prophylaxis Intervention: other (coumadin) Lines/Catheters IV Catheter Type (from Nrsg): Saline Lock Urinary Cath still in place: No Assessment/Plan Assessment/Plan 1. Pneumonia likely recurrent aspiration; on levaquin and flagyl 2. Sepsis; septic encephalopathy from pneumonia 3. Dysphagia?10/19/16- peg 4. Ischemic stroke '15; on Plavix 5. Dementia, chronic 6. ESRD mwf HD 7. Functional quadriplegia 8. Cardiac thrombus; on coumadin- [facility] 9. Malnutrition. Cont feeds and free water. 10. Htn 11. AICD 12. Pul Nodule 8 mm pleural; may continue surveillance although not a surgical candidate 13. Abn LFTs; viral process vs statin? No evidence of cholecystitis. 14. CAD/ pci- 5stents; Ho VFib/ VT arrest/ AICD; bb/plavix; not a candidate for cath/stress. cont plavix. 15. 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 17. Ischemic cardiomyopathy stable continue beta-sanju/ACEi. 18. DVT prophylaxis: on coumadin Subjective 24 Hr Interval Summary Free Text/Dictation nonverbal, responds to pain Exam/Review of Systems Vital Signs Vitals Vital Signs Date Time Temp Pulse Resp B/P Pulse Ox O2 Delivery O2 Flow Rate FiO2 11/20/16 12:18 99.5 104 18 125/57 100 11/20/16 09:11 Nasal Cannula 2.0 11/16/16 16:32 21 Intake and Output 11/19/16 11/19/16 11/20/16 15:00 23:00 07:00 Intake Total 600 ml 840 ml 670 ml Output Total 600 ml Balance 0 ml 840 ml 670 ml Exam Constitutional: alert, oriented, well developed Head: atraumatic, normocephalic Eyes: EOMI, nl conjunctiva, nl lids ENMT: nl external ears & nose, nl lips & teeth, nl nasal mucosa & septum Neck: non-tender, supple Respiratory: clear to auscultation, normal air movement, No congested cough, No crackles/rales, No diminished breath sounds, No intercostal retraction, No labored breathing, No other, No respirations, No tactile fremitus, No wheezing Cardiovascular: nl pulses, regular rate and rhythm, No S3, No S4, No bruits, No diastolic murmur, No edema, No gallop, No irregular rhythm, No jugular venous distention (JVD), No murmurs/extra sounds, No other, No rub, No systolic murmur Gastrointestinal: nl liver, spleen, soft, No ascites, No bowel sounds, No distended, No firm, No hepatomegaly, No mass , No other, No rebound or guarding, No splenomegaly, No surgical scars Neurological: confused, other (responds to pain) Skin: nl turgor, rash or lesions Results Result Diagram: 11/20/16 0713 11/20/16 0710 Results 24 hrs Laboratory Tests Test 11/20/16 07:10 11/20/16 07:13 Anion Gap 18 H Blood Urea Nitrogen 63 H Calcium Level 8.9 Carbon Dioxide Level 24 Chloride Level 97 Creatinine 6.02 H Glucose Level 102 Potassium Level 4.9 Sodium Level 134 L Basophils # 0.0 Basophils % 0.4 Blood Morphology Comment Eosinophils # 0.2 Eosinophils % 1.9 Hematocrit 28.6 L Hemoglobin 9.6 L INR International Normalized Ratio 1.72 Lymphocytes # 1.4 Lymphocytes % 12.6 L Mean Corpuscular Hemoglobin 30.7 Mean Corpuscular Hemoglobin Concent 33.6 Mean Corpuscular Volume 91.6 Mean Platelet Volume 8.5 Monocytes # 1.5 H Monocytes % 13.9 H Neutrophils # 7.6 H Neutrophils % 71.2 Nucleated Red Blood Cells # 0.0 Nucleated Red Blood Cells % 0.0 Platelet Count 244 # Prothrombin Time 20.3 H Prothrombin Time Ratio 1.6 Red Blood Count 3.12 L Red Cell Distribution Width 16.6 H White Blood Count 10.7 Medications Medications Current Medications Ondansetron HCl (Zofran Inj) 4 mg Q6H PRN IV NAUSEA AND/OR VOMITING; Start 07/16 at 23:30 Morphine Sulfate (morphine) 2 mg Q4H PRN IV SEVERE PAIN LEVEL 7-10; Start 11/09 at 23:30 Clopidogrel Bisulfate (plaVIX) 75 mg DAILY GTB Last administered on 11/20/16 09:15; Admin Dose 75 MG; Start 11/10/16 at 09:00 Warfarin Sodium (Coumadin) 2 mg DAILY@17 GTB Last administered on 11/19/16 17: 46; Admin Dose 2 MG; Start 11/10/16 at 17:00 Lactobacillus Acidoph/Bulgaricus (Floranex) 1 tab BID PO Last administered on 09:15; Admin Dose 1 TAB; Start 11/12/16 at 14:00 Carvedilol (Coreg) 3.125 mg BID GTB Last administered on 11/20/16 09:26; Admin Dose 3.125 MG; Start 11/12/16 at 21:00 Lisinopril (Zestril) 2.5 mg DAILY GTB Last administered on 11/20/16 09:28; Admin Dose 2.5 MG; Start 11/13/16 at 09:00 Atorvastatin Calcium (Lipitor) 40 mg QHS GTB Last administered on 11/19/16 21: 17; Admin Dose 40 MG; Start 11/14/16 at 21:00 Cholecalciferol (Vitamin D) 2,000 unit DAILY PEG Last administered on 09:15; Admin Dose 2,000 UNIT; Start 11/16/16 at 09:00 Acetaminophen (Tylenol Tab) 650 mg Q6H PRN PO PAIN AND OR ELEVATED TEMP Last administered on 11/19/16 08:06; Admin Dose 650 MG; Start 11/15/16 at 21:26 Epoetin Hadley (Epogen (Esrd)) 6,000 units MoWeFr@17 SC Last administered on 11/19 17:59; Admin Dose 6,000 UNITS; Start 11/16/16 at 17:00 Cholestyramine Resin (Questran Light) 4 gm BID PO Last administered on 09:15; Admin Dose 4 GM; Start 11/16/16 at 11:30 Levofloxacin (Levaquin) 500 mg Q48H GTB Last administered on 11/19/16 11:34; Admin Dose 500 MG; Start 11/17/16 at 11:00 Famotidine 20 mg 20 mg HS GTB Last administered on 11/19/16 21:17; Admin Dose 20 MG; Start 11/17/16 at 21:00 Metronidazole (Flagyl 500 Mg (Pmx)) 100 ml @ 100 mls/hr Q8 IVPB Last administered on 11/20/16 05:39; Admin Dose 100 MLS/HR; Start 11/19/16 at 14:00 BRIGHT CHEN MD Nov 20, 2016 13:52
[2016-11-20] MEDS: WARFARIN 2 MG TAB GTB SCH (17:28)
[2016-11-20] MEDS: FAMOTIDINE 20 MG TAB GTB SCH (21:25)
[2016-11-20] MEDS: ATORVASTATIN 40 MG TAB GTB SCH (21:25)
[2016-11-21] VITALS (14 sets, daily range): BP systolic 107–145; BP diastolic 55–84; PULSE 89–104; RESP 17–22
[2016-11-21] MEDS: ALBUTEROL 0.083% (NEB) 2.5 MG/3 ML AMP HHN SCH ×3 (00:02→16:11)
[2016-11-21] MEDS: metroNIDAZOLE 500 MG/NS (PMX) 100 ML IVPB SCH ×4 (05:27→21:23)
[2016-11-21 07:24] LABS: INR 1.75; PROTIME 20.6 Sec (12.2-14.2); PT RATIO 1.6
[2016-11-21] MEDS: LISINOPRIL 5 MG TAB GTB SCH (08:42)
[2016-11-21] MEDS: LACTOBACILLUS CHEW TAB PO SCH ×2 (08:47→21:23)
[2016-11-21] MEDS: SEVELAMER CARBONATE 0.8 GM PKT GTB SCH ×3 (08:47→17:29)
[2016-11-21] MEDS: CLOPIDOGREL 75 MG TAB GTB SCH (08:47)
[2016-11-21] MEDS: CHOLESTYRAMINE (LIGHT) 4 GM PACKET PO SCH ×2 (08:47→21:24)
[2016-11-21] MEDS: CHOLECALCIFEROL 2,000 UNIT CAP PEG SCH (08:47)
[2016-11-21 09:39] LABS: BASOPHIL # 0.1 10^3/ul (0.0-0.1); BASOPHILS % 0.4 % (0.0-2.0); EOSINOPHILS # 0.1 10^3/ul (0.0-0.5); EOSINOPHILS % 0.7 % (0.0-7.0); HEMATOCRIT 26.1 % (42.0-52.0); HEMOGLOBIN 8.9 g/dl (14.0-18.0); LYMPHOCYTES # 1.8 10^3/ul (0.8-2.9); LYMPHOCYTES % 12.5 % (15.0-51.0); MEAN CORPUSCULAR HEMOGLOBIN 31.3 pg (29.0-33.0); MEAN CORPUSCULAR HGB CONC 34.3 g/dl (32.0-37.0); MEAN CORPUSCULAR VOLUME 91.3 fl (82.0-101.0); MEAN PLATELET VOLUME 8.7 fl (7.4-10.4); MONOCYTE # 2.5 10^3/ul (0.3-0.9); MONOCYTES % 17.9 % (0.0-11.0); NEUTROPHIL # 9.7 10^3/ul (1.6-7.5); NEUTROPHILS % 68.5 % (39.0-77.0); PLATELET COUNT 298 10^3/UL (140-440); RED BLOOD COUNT 2.86 10^6/ul (4.70-6.10); RED CELL DISTRIBUTION WIDTH 16.8 % (11.5-14.5); UNCORRECTED WBC 14.1 10^3/ul (4.8-10.8); WHITE BLOOD COUNT 14.1 10^3/ul (4.8-10.8)
[2016-11-21 09:41] LABS: CONDITION 1; LH ANALYZER COMMENTS 1
[2016-11-21 11:17] LABS: ANISOCYTOSIS 1+
[2016-11-21] MEDS: LEVOFLOXACIN 500 MG TAB GTB SCH (11:28)
--- NOTE | 2016-11-21 11:50 | CONS ---
Date/Time of Note Date/Time of Note DATE: 11/21/16 TIME: 11:47 Assessment/Plan Assessment/Plan Additional Assessment/Plan 1. Altered mental status likely secondary to sepsis secondary to pneumonia. 2. Acute respiratory failure, on ventilator.s/p Extubation 3. End-stage renal disease on hemodialysis.MWF 4. History of previous stroke resulting in dysphagia status post G-tube placement for feeding purposes. 5. History of hypertension. 6. History of PEG tube placement and arteriovenous fistula for dialysis access. 7. H/o Defibrillator placement PLAN: IV abx for sepsis and PNA, IV abx for luecocytosis HD today then will continue HD MWF will continue to follow up Consultation Date/Type/Reason Admit Date/Time Nov 09, 2016 at 23:15 Initial Consult Date 11/09/2016 Type of Consultation: NEPHROLOGY Reason for Consultation ESRD on HD with sepsis, fluid overload Referring Provider: MELI MENDEZ MD 24 HR Interval Summary Free Text/Dictation s/p HD , afebrile, BP stable , pt stable, opens eye randomly, on Tube feeding Exam/Review of Systems Vital Signs Vitals Vital Signs Date Time Temp Pulse Resp B/P Pulse Ox O2 Delivery O2 Flow Rate FiO2 11/21/16 10:33 92 11/21/16 10:20 24 100 Nasal Cannula 2.0 11/21/16 08:19 98.5 115/55 Intake and Output 11/20/16 11/20/16 11/21/16 15:00 23:00 07:00 Intake Total 880 ml 620 ml Balance 880 ml 620 ml Exam NECK: Supple, no JVD or lymphadenopathy. CARDIAC: S1, S2, no added sounds or murmurs. CHEST: bibasilar rales ABDOMEN: Soft, nontender. EXTREMITIES: No cyanosis, clubbing or edema. left forearm aVF with good thrill and bruit Results Result Diagram: 11/21/16 0621 11/20/16 0710 Results 24 hrs Laboratory Tests Test 11/21/16 06:21 Anisocytosis 1+ Basophils # 0.1 Basophils % 0.4 Blood Morphology Comment Eosinophils # 0.1 Eosinophils % 0.7 Hematocrit 26.1 L Hemoglobin 8.9 L INR International Normalized Ratio 1.75 Lymphocytes # 1.8 Lymphocytes % 12.5 L Mean Corpuscular Hemoglobin 31.3 Mean Corpuscular Hemoglobin Concent 34.3 Mean Corpuscular Volume 91.3 Mean Platelet Volume 8.7 Monocytes # 2.5 H Monocytes % 17.9 H Neutrophils # 9.7 H Neutrophils % 68.5 Nucleated Red Blood Cells # 0.0 Nucleated Red Blood Cells % 0.0 Platelet Count 298 # Prothrombin Time 20.6 H Prothrombin Time Ratio 1.6 Red Blood Count 2.86 L Red Cell Distribution Width 16.8 H White Blood Count 14.1 #H Medications Medications Current Medications Ondansetron HCl (Zofran Inj) 4 mg Q6H PRN IV NAUSEA AND/OR VOMITING; Start 07/16 at 23:30 Morphine Sulfate (morphine) 2 mg Q4H PRN IV SEVERE PAIN LEVEL 7-10; Start 11/09 at 23:30 Clopidogrel Bisulfate (plaVIX) 75 mg DAILY GTB Last administered on 11/21/16 08:47; Admin Dose 75 MG; Start 11/10/16 at 09:00 Warfarin Sodium (Coumadin) 2 mg DAILY@17 GTB Last administered on 11/20/16 17: 28; Admin Dose 2 MG; Start 11/10/16 at 17:00 Lactobacillus Acidoph/Bulgaricus (Floranex) 1 tab BID PO Last administered on 08:47; Admin Dose 1 TAB; Start 11/12/16 at 14:00 Carvedilol (Coreg) 3.125 mg BID GTB Last administered on 11/20/16 21:27; Admin Dose 3.125 MG; Start 11/12/16 at 21:00 Lisinopril (Zestril) 2.5 mg DAILY GTB Last administered on 11/20/16 09:28; Admin Dose 2.5 MG; Start 11/13/16 at 09:00 Atorvastatin Calcium (Lipitor) 40 mg QHS GTB Last administered on 11/20/16 21: 25; Admin Dose 40 MG; Start 11/14/16 at 21:00 Cholecalciferol (Vitamin D) 2,000 unit DAILY PEG Last administered on 08:47; Admin Dose 2,000 UNIT; Start 11/16/16 at 09:00 Acetaminophen (Tylenol Tab) 650 mg Q6H PRN PO PAIN AND OR ELEVATED TEMP Last administered on 11/19/16 08:06; Admin Dose 650 MG; Start 11/15/16 at 21:26 Epoetin Hadley (Epogen (Esrd)) 6,000 units MoWeFr@17 SC Last administered on 11/19 17:59; Admin Dose 6,000 UNITS; Start 11/16/16 at 17:00 Cholestyramine Resin (Questran Light) 4 gm BID PO Last administered on 08:47; Admin Dose 4 GM; Start 11/16/16 at 11:30 Levofloxacin (Levaquin) 500 mg Q48H GTB Last administered on 11/21/16 11:28; Admin Dose 500 MG; Start 11/17/16 at 11:00 Famotidine 20 mg 20 mg HS GTB Last administered on 11/20/16 21:25; Admin Dose 20 MG; Start 11/17/16 at 21:00 Metronidazole (Flagyl 500 Mg (Pmx)) 100 ml @ 100 mls/hr Q8 IVPB Last administered on 11/21/16 06:53; Admin Dose 100 MLS/HR; Start 11/19/16 at 14:00 MARTINEZ WEST MD Nov 21, 2016 11:49
--- NOTE | 2016-11-21 13:18 | PN ---
Date/Time of Note Date/Time of Note DATE: 11/21/16 TIME: 13:16 Assessment/Plan VTE Prophylaxis VTE Prophylaxis Intervention: other (coumadin) Lines/Catheters IV Catheter Type (from Nrs): Saline Lock Urinary Cath still in place: No Assessment/Plan Assessment/Plan 1. Pneumonia likely recurrent aspiration; on levaquin and flagyl 2. Sepsis; septic encephalopathy from pneumonia 3. Dysphagia?10/19/16- peg 4. Ischemic stroke '15; on Plavix 5. Dementia, chronic 6. ESRD mwf HD 7. Functional quadriplegia 8. Cardiac thrombus; on coumadin- [facility] 9. Malnutrition. Cont feeds and free water. 10. Htn 11. AICD 12. Pul Nodule 8 mm pleural; may continue surveillance although not a surgical candidate 13. Abn LFTs; viral process vs statin? No evidence of cholecystitis. 14. CAD/ pci- 5stents; Ho VFib/ VT arrest/ AICD; bb/plavix; not a candidate for cath/stress. cont plavix. 15. 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 17. Ischemic cardiomyopathy stable continue beta-sanju/ACEi. 18. DVT prophylaxis: on coumadin Subjective 24 Hr Interval Summary Free Text/Dictation no distress, nonverbal Exam/Review of Systems Vital Signs Vitals Vital Signs Date Time Temp Pulse Resp B/P Pulse Ox O2 Delivery O2 Flow Rate FiO2 11/21/16 12:20 98.0 89 17 126/72 96 11/21/16 10:20 Nasal Cannula 2.0 Intake and Output 11/20/16 11/20/16 11/21/16 15:00 23:00 07:00 Intake Total 880 ml 620 ml Balance 880 ml 620 ml Exam Constitutional: alert, non-verbal, well developed Head: atraumatic, normocephalic Eyes: EOMI, PERRL, nl conjunctiva, nl lids ENMT: nl external ears & nose, nl lips & teeth, nl nasal mucosa & septum Neck: non-tender, supple Respiratory: clear to auscultation, normal air movement, No congested cough, No crackles/rales, No diminished breath sounds, No intercostal retraction, No labored breathing, No other, No respirations, No tactile fremitus, No wheezing Cardiovascular: nl pulses, regular rate and rhythm, No S3, No S4, No bruits, No diastolic murmur, No edema, No gallop, No irregular rhythm, No jugular venous distention (JVD), No murmurs/extra sounds, No other, No rub, No systolic murmur Gastrointestinal: nl liver, spleen, soft Extremities: normal pulses, No cyanosis, No edema, No palpable cord Neurological: confused Skin: nl turgor, rash or lesions Lymph: nl lymph nodes Results Result Diagram: 11/21/16 0621 11/20/16 0710 Results 24 hrs Laboratory Tests Test 11/21/16 06:21 Anisocytosis 1+ Basophils # 0.1 Basophils % 0.4 Blood Morphology Comment Eosinophils # 0.1 Eosinophils % 0.7 Hematocrit 26.1 L Hemoglobin 8.9 L INR International Normalized Ratio 1.75 Lymphocytes # 1.8 Lymphocytes % 12.5 L Mean Corpuscular Hemoglobin 31.3 Mean Corpuscular Hemoglobin Concent 34.3 Mean Corpuscular Volume 91.3 Mean Platelet Volume 8.7 Monocytes # 2.5 H Monocytes % 17.9 H Neutrophils # 9.7 H Neutrophils % 68.5 Nucleated Red Blood Cells # 0.0 Nucleated Red Blood Cells % 0.0 Platelet Count 298 # Prothrombin Time 20.6 H Prothrombin Time Ratio 1.6 Red Blood Count 2.86 L Red Cell Distribution Width 16.8 H White Blood Count 14.1 #H Medications Medications Current Medications Ondansetron HCl (Zofran Inj) 4 mg Q6H PRN IV NAUSEA AND/OR VOMITING; Start 07/16 at 23:30 Morphine Sulfate (morphine) 2 mg Q4H PRN IV SEVERE PAIN LEVEL 7-10; Start 11/09 at 23:30 Clopidogrel Bisulfate (plaVIX) 75 mg DAILY GTB Last administered on 11/21/16 08:47; Admin Dose 75 MG; Start 11/10/16 at 09:00 Warfarin Sodium (Coumadin) 2 mg DAILY@17 GTB Last administered on 11/20/16 17: 28; Admin Dose 2 MG; Start 11/10/16 at 17:00 Lactobacillus Acidoph/Bulgaricus (Floranex) 1 tab BID PO Last administered on 08:47; Admin Dose 1 TAB; Start 11/12/16 at 14:00 Carvedilol (Coreg) 3.125 mg BID GTB Last administered on 11/20/16 21:27; Admin Dose 3.125 MG; Start 11/12/16 at 21:00 Lisinopril (Zestril) 2.5 mg DAILY GTB Last administered on 11/20/16 09:28; Admin Dose 2.5 MG; Start 11/13/16 at 09:00 Atorvastatin Calcium (Lipitor) 40 mg QHS GTB Last administered on 11/20/16 21: 25; Admin Dose 40 MG; Start 11/14/16 at 21:00 Cholecalciferol (Vitamin D) 2,000 unit DAILY PEG Last administered on 08:47; Admin Dose 2,000 UNIT; Start 11/16/16 at 09:00 Acetaminophen (Tylenol Tab) 650 mg Q6H PRN PO PAIN AND OR ELEVATED TEMP Last administered on 11/19/16 08:06; Admin Dose 650 MG; Start 11/15/16 at 21:26 Epoetin Hadley (Epogen (Esrd)) 6,000 units MoWeFr@17 SC Last administered on 11/19 17:59; Admin Dose 6,000 UNITS; Start 11/16/16 at 17:00 Cholestyramine Resin (Questran Light) 4 gm BID PO Last administered on 08:47; Admin Dose 4 GM; Start 11/16/16 at 11:30 Levofloxacin (Levaquin) 500 mg Q48H GTB Last administered on 11/21/16 11:28; Admin Dose 500 MG; Start 11/17/16 at 11:00 Famotidine 20 mg 20 mg HS GTB Last administered on 11/20/16 21:25; Admin Dose 20 MG; Start 11/17/16 at 21:00 Metronidazole (Flagyl 500 Mg (Pmx)) 100 ml @ 100 mls/hr Q8 IVPB Last administered on 11/21/16 06:53; Admin Dose 100 MLS/HR; Start 11/19/16 at 14:00 BRIGHT CHEN MD Nov 21, 2016 13:18
[2016-11-21] MEDS: WARFARIN 2 MG TAB GTB SCH (17:29)
[2016-11-21] MEDS: EPOETIN 3000 UNITS/1 ML INJ (ESRD) SC SCH (17:30)
[2016-11-21] MEDS: FAMOTIDINE 20 MG TAB GTB SCH (21:23)
[2016-11-21] MEDS: ATORVASTATIN 40 MG TAB GTB SCH (21:23)
[2016-11-22] VITALS (16 sets, daily range): BP systolic 95–161; BP diastolic 49–77; PULSE 95–105; RESP 20–31
[2016-11-22] MEDS: ALBUTEROL 0.083% (NEB) 2.5 MG/3 ML AMP HHN SCH ×2 (00:42→09:04)
[2016-11-22] MEDS: metroNIDAZOLE 500 MG/NS (PMX) 100 ML IVPB SCH ×3 (05:54→22:40)
[2016-11-22 07:26] LABS: POTASSIUM 4.4 mmol/L (3.5-5.1)
[2016-11-22 07:29] LABS: CREATININE 5.2 mg/dl (0.61-1.24)
[2016-11-22 07:30] LABS: CALCIUM 9.4 mg/dl (8.4-10.2)
[2016-11-22 08:03] LABS: BASOPHILS % 0.4 % (0.0-2.0); EOSINOPHILS # 0.4 10^3/ul (0.0-0.5); EOSINOPHILS % 4.2 % (0.0-7.0); HEMOGLOBIN 9.5 g/dl (14.0-18.0); LYMPHOCYTES # 1.6 10^3/ul (0.8-2.9); LYMPHOCYTES % 15.9 % (15.0-51.0); MEAN CORPUSCULAR HEMOGLOBIN 30.2 pg (29.0-33.0); MEAN CORPUSCULAR HGB CONC 31.7 g/dl (32.0-37.0); MEAN CORPUSCULAR VOLUME 95.2 fl (82.0-101.0); MEAN PLATELET VOLUME 10.3 fl (7.4-10.4); MONOCYTE # 1.9 10^3/ul (0.3-0.9); MONOCYTES % 18.9 % (0.0-11.0); NEUTROPHIL # 5.9 10^3/ul (1.6-7.5); PLATELET COUNT 272 10^3/UL (140-415); RED BLOOD COUNT 3.15 10^6/ul (4.70-6.10); RED CELL DISTRIBUTION WIDTH 15.8 % (11.5-14.5); WHITE BLOOD COUNT 9.8 10^3/ul (4.8-10.8)
[2016-11-22] MEDS: CHOLECALCIFEROL 2,000 UNIT CAP PEG SCH (08:57)
[2016-11-22] MEDS: SEVELAMER CARBONATE 0.8 GM PKT GTB SCH ×3 (08:57→17:49)
[2016-11-22] MEDS: LISINOPRIL 5 MG TAB GTB SCH (08:58)
[2016-11-22] MEDS: LACTOBACILLUS CHEW TAB PO SCH ×2 (08:58→22:41)
[2016-11-22] MEDS: CLOPIDOGREL 75 MG TAB GTB SCH (08:58)
[2016-11-22] MEDS: CHOLESTYRAMINE (LIGHT) 4 GM PACKET PO SCH ×2 (08:59→22:40)
--- NOTE | 2016-11-22 11:58 | CONS ---
Date/Time of Note Date/Time of Note DATE: 11/22/16 TIME: 11:57 Assessment/Plan Assessment/Plan Additional Assessment/Plan 1. Altered mental status likely secondary to sepsis secondary to pneumonia. 2. Acute respiratory failure, on ventilator.s/p Extubation 3. End-stage renal disease on hemodialysis.MWF 4. History of previous stroke resulting in dysphagia status post G-tube placement for feeding purposes. 5. History of hypertension. 6. History of PEG tube placement and arteriovenous fistula for dialysis access. 7. H/o Defibrillator placement PLAN: IV abx for sepsis and PNA, IV abx for luecocytosis HD tomorrow then will continue HD MWF will continue to follow up Consultation Date/Type/Reason Admit Date/Time Nov 09, 2016 at 23:15 Initial Consult Date 11/09/2016 Type of Consultation: NEPHROLOGY Reason for Consultation ESRD on HD Referring Provider: MELI MENDEZ MD 24 HR Interval Summary Free Text/Dictation s/p HD yesterday 2 L removed,BP stable, afebrile Exam/Review of Systems Vital Signs Vitals Vital Signs Date Time Temp Pulse Resp B/P Pulse Ox O2 Delivery O2 Flow Rate FiO2 11/22/16 11:20 98.5 106 31 161/77 96 11/22/16 09:04 21 11/22/16 04:45 Room Air 11/21/16 16:11 2.0 Intake and Output 11/21/16 11/21/16 11/22/16 15:00 23:00 07:00 Intake Total 200 ml 670 ml Output Total 2200 ml 0 ml Balance -2000 ml 670 ml Results Result Diagram: 11/22/16 0600 11/22/16 0600 Results 24 hrs Laboratory Tests Test 11/22/16 06:00 Anion Gap 15 Basophils # 0.0 Basophils % 0.4 Blood Urea Nitrogen 51 H Calcium Level 9.4 Carbon Dioxide Level 31 Chloride Level 99 Creatinine 5.20 H Eosinophils # 0.4 Eosinophils % 4.2 Glucose Level 96 Hematocrit 30.0 L Hemoglobin 9.5 L Lymphocytes # 1.6 Lymphocytes % 15.9 Mean Corpuscular Hemoglobin 30.2 Mean Corpuscular Hemoglobin Concent 31.7 L Mean Corpuscular Volume 95.2 Mean Platelet Volume 10.3 Monocytes # 1.9 H Monocytes % 18.9 H Neutrophils # 5.9 Neutrophils % 60.0 Nucleated Red Blood Cells # 0.0 Nucleated Red Blood Cells % 0.0 Platelet Count 272 # Potassium Level 4.4 Red Blood Count 3.15 L Red Cell Distribution Width 15.8 H Sodium Level 141 White Blood Count 9.8 # Medications Medications Current Medications Ondansetron HCl (Zofran Inj) 4 mg Q6H PRN IV NAUSEA AND/OR VOMITING; Start 07/16 at 23:30 Morphine Sulfate (morphine) 2 mg Q4H PRN IV SEVERE PAIN LEVEL 7-10; Start 11/09 at 23:30 Clopidogrel Bisulfate (plaVIX) 75 mg DAILY GTB Last administered on 11/22/16 08:58; Admin Dose 75 MG; Start 11/10/16 at 09:00 Warfarin Sodium (Coumadin) 2 mg DAILY@17 GTB Last administered on 11/21/16 17: 29; Admin Dose 2 MG; Start 11/10/16 at 17:00 Lactobacillus Acidoph/Bulgaricus (Floranex) 1 tab BID PO Last administered on 08:58; Admin Dose 1 TAB; Start 11/12/16 at 14:00 Carvedilol (Coreg) 3.125 mg BID GTB Last administered on 11/22/16 08:58; Admin Dose 3.125 MG; Start 11/12/16 at 21:00 Lisinopril (Zestril) 2.5 mg DAILY GTB Last administered on 11/22/16 08:58; Admin Dose 2.5 MG; Start 11/13/16 at 09:00 Atorvastatin Calcium (Lipitor) 40 mg QHS GTB Last administered on 11/21/16 21: 23; Admin Dose 40 MG; Start 11/14/16 at 21:00 Cholecalciferol (Vitamin D) 2,000 unit DAILY PEG Last administered on 08:57; Admin Dose 2,000 UNIT; Start 11/16/16 at 09:00 Acetaminophen (Tylenol Tab) 650 mg Q6H PRN PO PAIN AND OR ELEVATED TEMP Last administered on 11/19/16 08:06; Admin Dose 650 MG; Start 11/15/16 at 21:26 Epoetin Hadley (Epogen (Esrd)) 6,000 units MoWeFr@17 SC Last administered on 11/21 17:30; Admin Dose 6,000 UNITS; Start 11/16/16 at 17:00 Cholestyramine Resin (Questran Light) 4 gm BID PO Last administered on 08:59; Admin Dose 4 GM; Start 11/16/16 at 11:30 Levofloxacin (Levaquin) 500 mg Q48H GTB Last administered on 11/21/16 11:28; Admin Dose 500 MG; Start 11/17/16 at 11:00 Famotidine 20 mg 20 mg HS GTB Last administered on 11/21/16 21:23; Admin Dose 20 MG; Start 11/17/16 at 21:00 Metronidazole (Flagyl 500 Mg (Pmx)) 100 ml @ 100 mls/hr Q8 IVPB Last administered on 11/22/16 05:54; Admin Dose 100 MLS/HR; Start 11/19/16 at 14:00 MARTINEZ WEST MD Nov 22, 2016 11:58
[2016-11-22] MEDS: WARFARIN 2 MG TAB GTB SCH (17:49)
[2016-11-22] MEDS: ACETAMINOPHEN 325 MG TAB PO PRN (22:40)
[2016-11-22] MEDS: ATORVASTATIN 40 MG TAB GTB SCH (22:41)
[2016-11-22] MEDS: FAMOTIDINE 20 MG TAB GTB SCH (22:41)
[2016-11-23] VITALS (22 sets, daily range): BP systolic 116–189; BP diastolic 54–98; PULSE 83–96; RESP 19–24
[2016-11-23] MEDS: ALBUTEROL 0.083% (NEB) 2.5 MG/3 ML AMP HHN SCH ×3 (01:05→15:37)
[2016-11-23] MEDS: metroNIDAZOLE 500 MG/NS (PMX) 100 ML IVPB SCH ×3 (06:24→21:49)
[2016-11-23 07:22] LABS: ADD SCAN DIFF NO
[2016-11-23 07:30] LABS: ABNORMAL IP MESSAGE 1; BASOPHILS % 0.4 % (0.0-2.0); EOSINOPHILS # 0.4 10^3/ul (0.0-0.5); HEMATOCRIT 26.3 % (42.0-52.0); LYMPHOCYTES # 1.3 10^3/ul (0.8-2.9); LYMPHOCYTES % 13.4 % (15.0-51.0); MEAN CORPUSCULAR HEMOGLOBIN 29.5 pg (29.0-33.0); MEAN CORPUSCULAR HGB CONC 30.4 g/dl (32.0-37.0); MEAN PLATELET VOLUME 10.3 fl (7.4-10.4); MONOCYTE # 1.6 10^3/ul (0.3-0.9); MONOCYTES % 16.3 % (0.0-11.0); NEUTROPHIL # 6.4 10^3/ul (1.6-7.5); NEUTROPHILS % 64.9 % (39.0-77.0); PLATELET COUNT 303 10^3/UL (140-415); RED BLOOD COUNT 2.71 10^6/ul (4.70-6.10); RED CELL DISTRIBUTION WIDTH 15.9 % (11.5-14.5); WHITE BLOOD COUNT 9.9 10^3/ul (4.8-10.8)
[2016-11-23] MEDS: SEVELAMER CARBONATE 0.8 GM PKT GTB SCH ×3 (07:44→17:30)
[2016-11-23 07:55] LABS: INR 2.17; PROTIME 24.4 Sec (12.2-14.2); PT RATIO 1.9
[2016-11-23] MEDS: CHOLESTYRAMINE (LIGHT) 4 GM PACKET PO SCH ×2 (10:48→20:55)
[2016-11-23] MEDS: CHOLECALCIFEROL 2,000 UNIT CAP PEG SCH (10:48)
[2016-11-23] MEDS: CLOPIDOGREL 75 MG TAB GTB SCH (10:49)
[2016-11-23] MEDS: LISINOPRIL 5 MG TAB GTB SCH (10:49)
[2016-11-23] MEDS: LACTOBACILLUS CHEW TAB PO SCH ×2 (10:50→20:55)
[2016-11-23] MEDS: LEVOFLOXACIN 500 MG TAB GTB SCH (10:59)
--- NOTE | 2016-11-23 13:29 | CONS ---
Date/Time of Note Date/Time of Note DATE: 11/23/16 TIME: 13:27 Assessment/Plan Assessment/Plan Additional Assessment/Plan 1. Altered mental status likely secondary to sepsis secondary to pneumonia. 2. Acute respiratory failure, on ventilator.s/p Extubation 3. End-stage renal disease on hemodialysis.MWF 4. History of previous stroke resulting in dysphagia status post G-tube placement for feeding purposes. 5. History of hypertension. 6. History of PEG tube placement and arteriovenous fistula for dialysis access. 7. H/o Defibrillator placement PLAN: IV abx for sepsis and PNA, IV abx for luecocytosis HD today, pt is on MWF schedule will continue to follow up Consultation Date/Type/Reason Admit Date/Time Nov 09, 2016 at 23:15 Initial Consult Date 11/09/2016 Type of Consultation: NEPHROLOGY Referring Provider: MELI MENDEZ MD 24 HR Interval Summary Free Text/Dictation HD today Exam/Review of Systems Vital Signs Vitals Vital Signs Date Time Temp Pulse Resp B/P Pulse Ox O2 Delivery O2 Flow Rate FiO2 11/23/16 12:25 95 11/23/16 11:40 Nasal Cannula 11/23/16 09:30 19 11/23/16 08:53 97.4 131/63 97 11/23/16 03:30 2.0 11/23/16 01:05 40 Intake and Output 11/22/16 11/22/16 11/23/16 15:00 23:00 07:00 Intake Total 205 ml 600 ml 550 ml Output Total 200 ml Balance 205 ml 400 ml 550 ml Exam NECK: Supple, no JVD or lymphadenopathy. CARDIAC: S1, S2, no added sounds or murmurs. CHEST: bibasilar rales ABDOMEN: Soft, nontender. EXTREMITIES: No cyanosis, clubbing or edema. left forearm aVF with good thrill and bruit Results Result Diagram: 11/23/16 0624 11/22/16 0600 Results 24 hrs Laboratory Tests Test 11/23/16 06:24 Basophils # 0.0 Basophils % 0.4 Eosinophils # 0.4 Eosinophils % 4.0 Hematocrit 26.3 L Hemoglobin 8.0 L INR International Normalized Ratio 2.17 Lymphocytes # 1.3 Lymphocytes % 13.4 L Mean Corpuscular Hemoglobin 29.5 Mean Corpuscular Hemoglobin Concent 30.4 L Mean Corpuscular Volume 97.0 Mean Platelet Volume 10.3 Monocytes # 1.6 H Monocytes % 16.3 H Neutrophils # 6.4 Neutrophils % 64.9 Nucleated Red Blood Cells # 0.0 Nucleated Red Blood Cells % 0.0 Platelet Count 303 Prothrombin Time 24.4 H Prothrombin Time Ratio 1.9 Red Blood Count 2.71 L Red Cell Distribution Width 15.9 H White Blood Count 9.9 Medications Medications Current Medications Ondansetron HCl (Zofran Inj) 4 mg Q6H PRN IV NAUSEA AND/OR VOMITING; Start 07/16 at 23:30 Morphine Sulfate (morphine) 2 mg Q4H PRN IV SEVERE PAIN LEVEL 7-10; Start 11/09 at 23:30 Clopidogrel Bisulfate (plaVIX) 75 mg DAILY GTB Last administered on 11/23/16 10:49; Admin Dose 75 MG; Start 11/10/16 at 09:00 Warfarin Sodium (Coumadin) 2 mg DAILY@17 GTB Last administered on 11/22/16 17: 49; Admin Dose 2 MG; Start 11/10/16 at 17:00 Lactobacillus Acidoph/Bulgaricus (Floranex) 1 tab BID PO Last administered on 10:50; Admin Dose 1 TAB; Start 11/12/16 at 14:00 Carvedilol (Coreg) 3.125 mg BID GTB Last administered on 11/23/16 10:50; Admin Dose 3.125 MG; Start 11/12/16 at 21:00 Lisinopril (Zestril) 2.5 mg DAILY GTB Last administered on 11/23/16 10:49; Admin Dose 2.5 MG; Start 11/13/16 at 09:00 Atorvastatin Calcium (Lipitor) 40 mg QHS GTB Last administered on 11/22/16 22: 41; Admin Dose 40 MG; Start 11/14/16 at 21:00 Cholecalciferol (Vitamin D) 2,000 unit DAILY PEG Last administered on 10:48; Admin Dose 2,000 UNIT; Start 11/16/16 at 09:00 Acetaminophen (Tylenol Tab) 650 mg Q6H PRN PO PAIN AND OR ELEVATED TEMP Last administered on 11/22/16 22:40; Admin Dose 650 MG; Start 11/15/16 at 21:26 Epoetin Hadley (Epogen (Esrd)) 6,000 units MoWeFr@17 SC Last administered on 11/21 17:30; Admin Dose 6,000 UNITS; Start 11/16/16 at 17:00 Cholestyramine Resin (Questran Light) 4 gm BID PO Last administered on 10:48; Admin Dose 4 GM; Start 11/16/16 at 11:30 Levofloxacin (Levaquin) 500 mg Q48H GTB Last administered on 11/23/16 10:59; Admin Dose 500 MG; Start 11/17/16 at 11:00 Famotidine 20 mg 20 mg HS GTB Last administered on 11/22/16 22:41; Admin Dose 20 MG; Start 11/17/16 at 21:00 Metronidazole (Flagyl 500 Mg (Pmx)) 100 ml @ 100 mls/hr Q8 IVPB Last administered on 11/23/16 06:24; Admin Dose 100 MLS/HR; Start 11/19/16 at 14:00 MARTINEZ WEST MD Nov 23, 2016 13:28
--- NOTE | 2016-11-23 14:22 | PN ---
Date/Time of Note Date/Time of Note DATE: 11/23/16 TIME: 14:19 Assessment/Plan VTE Prophylaxis VTE Prophylaxis Intervention: other (coumadin) Lines/Catheters IV Catheter Type (from Nrs): Saline Lock Urinary Cath still in place: No Assessment/Plan Assessment/Plan 1. Pneumonia likely recurrent aspiration; treated 2. Sepsis; septic encephalopathy from pneumonia 3. Dysphagia?10/19/16- peg 4. Ischemic stroke '15; on Plavix 5. Dementia, chronic 6. ESRD mwf HD 7. Functional quadriplegia 8. Cardiac thrombus; on coumadin- [facility] 9. Malnutrition. Cont feeds and free water. 10. Htn 11. AICD 12. Pul Nodule 8 mm pleural; may continue surveillance although not a surgical candidate 13. Abn LFTs; viral process vs statin? No evidence of cholecystitis. 14. CAD/ pci- 5stents; Ho VFib/ VT arrest/ AICD; bb/plavix; not a candidate for cath/stress. cont plavix. 15. 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 17. Ischemic cardiomyopathy stable continue beta-sanju/ACEi. 18. DVT prophylaxis: on coumadin Subjective 24 Hr Interval Summary Free Text/Dictation nonverbal Exam/Review of Systems Vital Signs Vitals Vital Signs Date Time Temp Pulse Resp B/P Pulse Ox O2 Delivery O2 Flow Rate FiO2 11/23/16 12:25 95 11/23/16 11:40 Nasal Cannula 11/23/16 09:30 19 11/23/16 08:53 97.4 131/63 97 11/23/16 03:30 2.0 11/23/16 01:05 40 Intake and Output 11/22/16 11/22/16 11/23/16 15:00 23:00 07:00 Intake Total 205 ml 600 ml 550 ml Output Total 200 ml Balance 205 ml 400 ml 550 ml Exam Constitutional: non-verbal Head: atraumatic, normocephalic Eyes: EOMI, PERRL, nl conjunctiva, nl lids ENMT: nl external ears & nose, nl lips & teeth, nl nasal mucosa & septum Neck: non-tender, supple Respiratory: clear to auscultation, normal air movement, No congested cough, No crackles/rales, No diminished breath sounds, No intercostal retraction, No labored breathing, No other, No respirations, No tactile fremitus, No wheezing Cardiovascular: nl pulses, regular rate and rhythm, No S3, No S4, No bruits, No diastolic murmur, No edema, No gallop, No irregular rhythm, No jugular venous distention (JVD), No murmurs/extra sounds, No other, No rub, No systolic murmur Gastrointestinal: nl liver, spleen, soft Musculoskeletal: nl extremities to inspection Neurological: confused Results Result Diagram: 11/23/16 0624 11/22/16 0600 Results 24 hrs Laboratory Tests Test 11/23/16 06:24 Basophils # 0.0 Basophils % 0.4 Eosinophils # 0.4 Eosinophils % 4.0 Hematocrit 26.3 L Hemoglobin 8.0 L INR International Normalized Ratio 2.17 Lymphocytes # 1.3 Lymphocytes % 13.4 L Mean Corpuscular Hemoglobin 29.5 Mean Corpuscular Hemoglobin Concent 30.4 L Mean Corpuscular Volume 97.0 Mean Platelet Volume 10.3 Monocytes # 1.6 H Monocytes % 16.3 H Neutrophils # 6.4 Neutrophils % 64.9 Nucleated Red Blood Cells # 0.0 Nucleated Red Blood Cells % 0.0 Platelet Count 303 Prothrombin Time 24.4 H Prothrombin Time Ratio 1.9 Red Blood Count 2.71 L Red Cell Distribution Width 15.9 H White Blood Count 9.9 Medications Medications Current Medications Ondansetron HCl (Zofran Inj) 4 mg Q6H PRN IV NAUSEA AND/OR VOMITING; Start 07/16 at 23:30 Morphine Sulfate (morphine) 2 mg Q4H PRN IV SEVERE PAIN LEVEL 7-10; Start 11/09 at 23:30 Clopidogrel Bisulfate (plaVIX) 75 mg DAILY GTB Last administered on 11/23/16 10:49; Admin Dose 75 MG; Start 11/10/16 at 09:00 Warfarin Sodium (Coumadin) 2 mg DAILY@17 GTB Last administered on 11/22/16 17: 49; Admin Dose 2 MG; Start 11/10/16 at 17:00 Lactobacillus Acidoph/Bulgaricus (Floranex) 1 tab BID PO Last administered on 10:50; Admin Dose 1 TAB; Start 11/12/16 at 14:00 Carvedilol (Coreg) 3.125 mg BID GTB Last administered on 11/23/16 10:50; Admin Dose 3.125 MG; Start 11/12/16 at 21:00 Lisinopril (Zestril) 2.5 mg DAILY GTB Last administered on 11/23/16 10:49; Admin Dose 2.5 MG; Start 11/13/16 at 09:00 Atorvastatin Calcium (Lipitor) 40 mg QHS GTB Last administered on 11/22/16 22: 41; Admin Dose 40 MG; Start 11/14/16 at 21:00 Cholecalciferol (Vitamin D) 2,000 unit DAILY PEG Last administered on 10:48; Admin Dose 2,000 UNIT; Start 11/16/16 at 09:00 Acetaminophen (Tylenol Tab) 650 mg Q6H PRN PO PAIN AND OR ELEVATED TEMP Last administered on 11/22/16 22:40; Admin Dose 650 MG; Start 11/15/16 at 21:26 Epoetin Hadley (Epogen (Esrd)) 6,000 units MoWeFr@17 SC Last administered on 11/21 17:30; Admin Dose 6,000 UNITS; Start 11/16/16 at 17:00 Cholestyramine Resin (Questran Light) 4 gm BID PO Last administered on 10:48; Admin Dose 4 GM; Start 11/16/16 at 11:30 Levofloxacin (Levaquin) 500 mg Q48H GTB Last administered on 11/23/16 10:59; Admin Dose 500 MG; Start 11/17/16 at 11:00 Famotidine 20 mg 20 mg HS GTB Last administered on 11/22/16 22:41; Admin Dose 20 MG; Start 11/17/16 at 21:00 Metronidazole (Flagyl 500 Mg (Pmx)) 100 ml @ 100 mls/hr Q8 IVPB Last administered on 11/23/16 13:53; Admin Dose 100 MLS/HR; Start 11/19/16 at 14:00 BRIGHT CHEN MD Nov 23, 2016 14:22
[2016-11-23] MEDS: WARFARIN 2 MG TAB GTB SCH (17:19)
[2016-11-23] MEDS: EPOETIN 3000 UNITS/1 ML INJ (ESRD) SC SCH (18:44)
[2016-11-23] MEDS: ATORVASTATIN 40 MG TAB GTB SCH (20:55)
[2016-11-23] MEDS: FAMOTIDINE 20 MG TAB GTB SCH (20:55)
[2016-11-24] VITALS (12 sets, daily range): BP systolic 122–142; BP diastolic 56–66; PULSE 90–104; RESP 19–20
[2016-11-24] MEDS: ALBUTEROL 0.083% (NEB) 2.5 MG/3 ML AMP HHN SCH ×4 (00:18→23:35)
[2016-11-24] MEDS: metroNIDAZOLE 500 MG/NS (PMX) 100 ML IVPB SCH ×3 (06:16→22:30)
[2016-11-24] MEDS: LISINOPRIL 5 MG TAB GTB SCH (09:00)
[2016-11-24] MEDS: LACTOBACILLUS CHEW TAB PO SCH ×2 (09:45→21:09)
[2016-11-24] MEDS: SEVELAMER CARBONATE 0.8 GM PKT GTB SCH ×3 (09:46→17:49)
[2016-11-24] MEDS: CHOLECALCIFEROL 2,000 UNIT CAP PEG SCH (09:46)
[2016-11-24] MEDS: CLOPIDOGREL 75 MG TAB GTB SCH (09:46)
[2016-11-24] MEDS: CHOLESTYRAMINE (LIGHT) 4 GM PACKET PO SCH ×2 (09:47→22:30)
[2016-11-24 10:22] LABS: ADD SCAN DIFF NO
[2016-11-24 10:26] LABS: BASOPHILS % 0.3 % (0.0-2.0); EOSINOPHILS # 0.4 10^3/ul (0.0-0.5); EOSINOPHILS % 5.3 % (0.0-7.0); HEMOGLOBIN 7.9 g/dl (14.0-18.0); LYMPHOCYTES # 1.2 10^3/ul (0.8-2.9); LYMPHOCYTES % 17.5 % (15.0-51.0); MEAN CORPUSCULAR HEMOGLOBIN 30.6 pg (29.0-33.0); MEAN CORPUSCULAR HGB CONC 31.6 g/dl (32.0-37.0); MEAN CORPUSCULAR VOLUME 96.9 fl (82.0-101.0); MEAN PLATELET VOLUME 10.3 fl (7.4-10.4); MONOCYTE # 0.9 10^3/ul (0.3-0.9); NEUTROPHIL # 4.1 10^3/ul (1.6-7.5); NEUTROPHILS % 62.1 % (39.0-77.0); PLATELET COUNT 358 10^3/UL (140-415); RED BLOOD COUNT 2.58 10^6/ul (4.70-6.10); RED CELL DISTRIBUTION WIDTH 16.2 % (11.5-14.5); WHITE BLOOD COUNT 6.6 10^3/ul (4.8-10.8)
--- NOTE | 2016-11-24 12:41 | PN ---
Date/Time of Note Date/Time of Note DATE: 11/24/16 TIME: 12:39 Assessment/Plan VTE Prophylaxis VTE Prophylaxis Intervention: other Lines/Catheters IV Catheter Type (from [facility]): Saline Lock Urinary Cath still in place: No Assessment/Plan Problems: (1) Decubitus ulcer of back, stage 4 Status: Chronic Comment: Noted. We will continue with routine wound care. Please note that he came to us from home with these wounds along with the contractures (2) Decubitus ulcer of ankle, stage 2 Status: Chronic Comment: Again as above he came to us with these wounds will do her best Qualifiers: Laterality: right Qualified Code: L89.512 - Decubitus ulcer of ankle, stage 2, right (3) Encephalopathy chronic Status: Chronic Comment: Has a chronic encephalopathy with little interaction with the outside world and no chance of meaningful recovery (4) Aspiration pneumonia Status: Acute Qualifiers: Aspiration pneumonia type: unspecified Laterality: right Lung location: lower lobe of lung Qualified Code: J69.0 - Aspiration pneumonia of right lower lobe, unspecified aspiration pneumonia type (5) Acute respiratory failure Status: Acute Comment: He is recovered from the aspiration pneumonia. Please note he is fed through percutaneous endoscopic G-tube. Previously had a trach Qualifiers: Respiratory failure complication: unspecified whether with hypoxia or hypercapnia Qualified Code: J96.00 - Acute respiratory failure, unspecified whether with hypoxia or hypercapnia Subjective 24 Hr Interval Summary Subjective hx not possible: pt non-verbal Exam/Review of Systems Vital Signs Vitals Vital Signs Date Time Temp Pulse Resp B/P Pulse Ox O2 Delivery O2 Flow Rate FiO2 11/24/16 12:28 98 11/24/16 12:03 98.0 20 140/66 96 11/24/16 08:10 Nasal Cannula 3.0 11/23/16 01:05 40 Intake and Output 11/23/16 11/23/16 11/24/16 15:00 23:00 07:00 Intake Total 600 ml 420 ml 535 ml Output Total 4300 ml Balance -3700 ml 420 ml 535 ml Exam Unfortunate elderly male lying in bed with contractures nonverbal Respiratory: clear to auscultation, normal air movement Cardiovascular: nl pulses, regular rate and rhythm Gastrointestinal: nl liver, spleen, non-tender, soft Skin: other (Decubitus ulcers on the back especially in the sacrum and on the heels.) Results Result Diagram: 11/24/16 0945 11/22/16 0600 Results 24 hrs Laboratory Tests Test 11/24/16 09:45 Basophils # 0.0 Basophils % 0.3 Eosinophils # 0.4 Eosinophils % 5.3 Hematocrit 25.0 L Hemoglobin 7.9 L Lymphocytes # 1.2 Lymphocytes % 17.5 Mean Corpuscular Hemoglobin 30.6 Mean Corpuscular Hemoglobin Concent 31.6 L Mean Corpuscular Volume 96.9 Mean Platelet Volume 10.3 Monocytes # 0.9 Monocytes % 14.0 H Neutrophils # 4.1 Neutrophils % 62.1 Nucleated Red Blood Cells # 0.0 Nucleated Red Blood Cells % 0.0 Platelet Count 358 Red Blood Count 2.58 L Red Cell Distribution Width 16.2 H White Blood Count 6.6 # Medications Medications Current Medications Ondansetron HCl (Zofran Inj) 4 mg Q6H PRN IV NAUSEA AND/OR VOMITING; Start 07/16 at 23:30 Morphine Sulfate (morphine) 2 mg Q4H PRN IV SEVERE PAIN LEVEL 7-10; Start 11/09 at 23:30 Clopidogrel Bisulfate (plaVIX) 75 mg DAILY GTB Last administered on 11/24/16 09:46; Admin Dose 75 MG; Start 11/10/16 at 09:00 Warfarin Sodium (Coumadin) 2 mg DAILY@17 GTB Last administered on 11/23/16 17: 19; Admin Dose 2 MG; Start 11/10/16 at 17:00 Lactobacillus Acidoph/Bulgaricus (Floranex) 1 tab BID PO Last administered on 09:45; Admin Dose 1 TAB; Start 11/12/16 at 14:00 Carvedilol (Coreg) 3.125 mg BID GTB Last administered on 11/24/16 09:00; Admin Dose 3.125 MG; Start 11/12/16 at 21:00 Lisinopril (Zestril) 2.5 mg DAILY GTB Last administered on 11/24/16 09:00; Admin Dose 2.5 MG; Start 11/13/16 at 09:00 Atorvastatin Calcium (Lipitor) 40 mg QHS GTB Last administered on 11/23/16 20: 55; Admin Dose 40 MG; Start 11/14/16 at 21:00 Cholecalciferol (Vitamin D) 2,000 unit DAILY PEG Last administered on 09:46; Admin Dose 2,000 UNIT; Start 11/16/16 at 09:00 Acetaminophen (Tylenol Tab) 650 mg Q6H PRN PO PAIN AND OR ELEVATED TEMP Last administered on 11/22/16 22:40; Admin Dose 650 MG; Start 11/15/16 at 21:26 Epoetin Hadley (Epogen (Esrd)) 6,000 units MoWeFr@17 SC Last administered on 11/23 18:44; Admin Dose 6,000 UNITS; Start 11/16/16 at 17:00 Cholestyramine Resin (Questran Light) 4 gm BID PO Last administered on 09:47; Admin Dose 4 GM; Start 11/16/16 at 11:30 Levofloxacin (Levaquin) 500 mg Q48H GTB Last administered on 11/23/16 10:59; Admin Dose 500 MG; Start 11/17/16 at 11:00 Famotidine 20 mg 20 mg HS GTB Last administered on 11/23/16 20:55; Admin Dose 20 MG; Start 11/17/16 at 21:00 Metronidazole (Flagyl 500 Mg (Pmx)) 100 ml @ 100 mls/hr Q8 IVPB Last administered on 11/24/16 06:16; Admin Dose 100 MLS/HR; Start 11/19/16 at 14:00 GREGG DUKE MD Nov 24, 2016 12:41
--- NOTE | 2016-11-24 13:17 | CONS ---
Date/Time of Note Date/Time of Note DATE: 11/24/16 TIME: 13:16 Assessment/Plan Assessment/Plan Additional Assessment/Plan 1. Altered mental status likely secondary to sepsis secondary to pneumonia. 2. Acute respiratory failure, on ventilator.s/p Extubation 3. End-stage renal disease on hemodialysis.MWF 4. History of previous stroke resulting in dysphagia status post G-tube placement for feeding purposes. 5. History of hypertension. 6. History of PEG tube placement and arteriovenous fistula for dialysis access. 7. H/o Defibrillator placement PLAN: IV abx for sepsis and PNA, IV abx for luecocytosis pt is on MWF schedule , next HD on Saturday will continue to follow up Consultation Date/Type/Reason Admit Date/Time Nov 09, 2016 at 23:15 Initial Consult Date 11/09/2016 Type of Consultation: NEPHROLOGY Reason for Consultation ESRD on HD, fluid overload, sepsis Referring Provider: MELI MENDEZ MD 24 HR Interval Summary Free Text/Dictation S/p HD yesterday, BP stable Exam/Review of Systems Vital Signs Vitals Vital Signs Date Time Temp Pulse Resp B/P Pulse Ox O2 Delivery O2 Flow Rate FiO2 11/24/16 12:28 98 11/24/16 12:03 98.0 20 140/66 96 11/24/16 08:10 Nasal Cannula 3.0 11/23/16 01:05 40 Intake and Output 11/23/16 11/23/16 11/24/16 15:00 23:00 07:00 Intake Total 600 ml 420 ml 535 ml Output Total 4300 ml Balance -3700 ml 420 ml 535 ml Exam NECK: Supple, no JVD or lymphadenopathy. CARDIAC: S1, S2, no added sounds or murmurs. CHEST: bibasilar rales ABDOMEN: Soft, nontender. EXTREMITIES: No cyanosis, clubbing or edema. left forearm aVF with good thrill and bruit Results Result Diagram: 11/24/16 0945 11/22/16 0600 Results 24 hrs Laboratory Tests Test 11/24/16 09:45 Basophils # 0.0 Basophils % 0.3 Eosinophils # 0.4 Eosinophils % 5.3 Hematocrit 25.0 L Hemoglobin 7.9 L Lymphocytes # 1.2 Lymphocytes % 17.5 Mean Corpuscular Hemoglobin 30.6 Mean Corpuscular Hemoglobin Concent 31.6 L Mean Corpuscular Volume 96.9 Mean Platelet Volume 10.3 Monocytes # 0.9 Monocytes % 14.0 H Neutrophils # 4.1 Neutrophils % 62.1 Nucleated Red Blood Cells # 0.0 Nucleated Red Blood Cells % 0.0 Platelet Count 358 Red Blood Count 2.58 L Red Cell Distribution Width 16.2 H White Blood Count 6.6 # Medications Medications Current Medications Ondansetron HCl (Zofran Inj) 4 mg Q6H PRN IV NAUSEA AND/OR VOMITING; Start 07/16 at 23:30 Morphine Sulfate (morphine) 2 mg Q4H PRN IV SEVERE PAIN LEVEL 7-10; Start 11/09 at 23:30 Clopidogrel Bisulfate (plaVIX) 75 mg DAILY GTB Last administered on 11/24/16 09:46; Admin Dose 75 MG; Start 11/10/16 at 09:00 Warfarin Sodium (Coumadin) 2 mg DAILY@17 GTB Last administered on 11/23/16 17: 19; Admin Dose 2 MG; Start 11/10/16 at 17:00 Lactobacillus Acidoph/Bulgaricus (Floranex) 1 tab BID PO Last administered on 09:45; Admin Dose 1 TAB; Start 11/12/16 at 14:00 Carvedilol (Coreg) 3.125 mg BID GTB Last administered on 11/24/16 09:00; Admin Dose 3.125 MG; Start 11/12/16 at 21:00 Lisinopril (Zestril) 2.5 mg DAILY GTB Last administered on 11/24/16 09:00; Admin Dose 2.5 MG; Start 11/13/16 at 09:00 Atorvastatin Calcium (Lipitor) 40 mg QHS GTB Last administered on 11/23/16 20: 55; Admin Dose 40 MG; Start 11/14/16 at 21:00 Cholecalciferol (Vitamin D) 2,000 unit DAILY PEG Last administered on 09:46; Admin Dose 2,000 UNIT; Start 11/16/16 at 09:00 Acetaminophen (Tylenol Tab) 650 mg Q6H PRN PO PAIN AND OR ELEVATED TEMP Last administered on 11/22/16 22:40; Admin Dose 650 MG; Start 11/15/16 at 21:26 Epoetin Hadley (Epogen (Esrd)) 6,000 units MoWeFr@17 SC Last administered on 11/23 18:44; Admin Dose 6,000 UNITS; Start 11/16/16 at 17:00 Cholestyramine Resin (Questran Light) 4 gm BID PO Last administered on 09:47; Admin Dose 4 GM; Start 11/16/16 at 11:30 Levofloxacin (Levaquin) 500 mg Q48H GTB Last administered on 11/23/16 10:59; Admin Dose 500 MG; Start 11/17/16 at 11:00 Famotidine 20 mg 20 mg HS GTB Last administered on 11/23/16 20:55; Admin Dose 20 MG; Start 11/17/16 at 21:00 Metronidazole (Flagyl 500 Mg (Pmx)) 100 ml @ 100 mls/hr Q8 IVPB Last administered on 11/24/16 06:16; Admin Dose 100 MLS/HR; Start 11/19/16 at 14:00 MARTINEZ WEST MD Nov 24, 2016 13:17
[2016-11-24] MEDS: WARFARIN 2 MG TAB GTB SCH (17:49)
[2016-11-24] MEDS: ATORVASTATIN 40 MG TAB GTB SCH (21:09)
[2016-11-24] MEDS: FAMOTIDINE 20 MG TAB GTB SCH (21:10)
[2016-11-25] VITALS (12 sets, daily range): BP systolic 128–149; BP diastolic 55–70; PULSE 82–100; RESP 18–19
[2016-11-25] MEDS: metroNIDAZOLE 500 MG/NS (PMX) 100 ML IVPB SCH ×3 (06:04→22:13)
[2016-11-25] MEDS: CHOLESTYRAMINE (LIGHT) 4 GM PACKET PO SCH ×2 (09:00→20:31)
[2016-11-25] MEDS: ALBUTEROL 0.083% (NEB) 2.5 MG/3 ML AMP HHN SCH ×2 (09:04→17:17)
[2016-11-25] MEDS: LACTOBACILLUS CHEW TAB PO SCH ×2 (09:08→20:30)
[2016-11-25] MEDS: CHOLECALCIFEROL 2,000 UNIT CAP PEG SCH (09:08)
[2016-11-25] MEDS: LISINOPRIL 5 MG TAB GTB SCH (09:09)
[2016-11-25] MEDS: CLOPIDOGREL 75 MG TAB GTB SCH (09:09)
[2016-11-25] MEDS: SEVELAMER CARBONATE 0.8 GM PKT GTB SCH ×3 (09:10→17:13)
[2016-11-25] MEDS: LEVOFLOXACIN 500 MG TAB GTB SCH (11:44)
--- NOTE | 2016-11-25 12:48 | CONS ---
Date/Time of Note Date/Time of Note DATE: 11/25/16 TIME: 12:45 Assessment/Plan Assessment/Plan Additional Assessment/Plan 1. Altered mental status likely secondary to sepsis secondary to pneumonia. 2. Acute respiratory failure, on ventilator.s/p Extubation 3. End-stage renal disease on hemodialysis.MWF 4. History of previous stroke resulting in dysphagia status post G-tube placement for feeding purposes. 5. History of hypertension. 6. History of PEG tube placement and arteriovenous fistula for dialysis access. 7. H/o Defibrillator placement PLAN: IV abx for sepsis and PNA, IV abx for luecocytosis pt is on [facility] schedule , HD ordered for tomorrow will continue to follow up Consultation Date/Type/Reason Admit Date/Time Nov 09, 2016 at 23:15 Initial Consult Date 11/09/2016 Type of Consultation: NEPHROLOGY Reason for Consultation ESRD on HD, Fluid overload Referring Provider: MELI MENDEZ MD 24 HR Interval Summary Free Text/Dictation plan for HD tomorrow, Exam/Review of Systems Vital Signs Vitals Vital Signs Date Time Temp Pulse Resp B/P Pulse Ox O2 Delivery O2 Flow Rate FiO2 11/25/16 12:37 82 11/25/16 11:53 98.4 19 132/64 100 11/25/16 09:05 Nasal Cannula 2.0 11/23/16 01:05 40 Intake and Output 11/24/16 11/24/16 11/25/16 15:00 23:00 07:00 Intake Total 600 ml Balance 600 ml Exam NECK: Supple, no JVD or lymphadenopathy. CARDIAC: S1, S2, no added sounds or murmurs. CHEST: bibasilar rales ABDOMEN: Soft, nontender. EXTREMITIES: No cyanosis, clubbing or edema. left forearm aVF with good thrill and bruit Results Result Diagram: 11/24/16 0945 11/22/16 0600 Medications Medications Current Medications Ondansetron HCl (Zofran Inj) 4 mg Q6H PRN IV NAUSEA AND/OR VOMITING; Start 07/16 at 23:30 Morphine Sulfate (morphine) 2 mg Q4H PRN IV SEVERE PAIN LEVEL 7-10; Start 11/09 at 23:30 Clopidogrel Bisulfate (plaVIX) 75 mg DAILY GTB Last administered on 11/25/16t 09:09; Admin Dose 75 MG; Start 11/10/16 at 09:00 Warfarin Sodium (Coumadin) 2 mg DAILY@17 GTB Last administered on 11/24/16 17: 49; Admin Dose 2 MG; Start 11/10/16 at 17:00 Lactobacillus Acidoph/Bulgaricus (Floranex) 1 tab BID PO Last administered on 09:08; Admin Dose 1 TAB; Start 11/12/16 at 14:00 Carvedilol (Coreg) 3.125 mg BID GTB Last administered on 11/25/16 09:09; Admin Dose 3.125 MG; Start 11/12/16 at 21:00 Lisinopril (Zestril) 2.5 mg DAILY GTB Last administered on 11/25/16 09:09; Admin Dose 2.5 MG; Start 11/13/16 at 09:00 Atorvastatin Calcium (Lipitor) 40 mg QHS GTB Last administered on 11/24/16 21: 09; Admin Dose 40 MG; Start 11/14/16 at 21:00 Cholecalciferol (Vitamin D) 2,000 unit DAILY PEG Last administered on 09:08; Admin Dose 2,000 UNIT; Start 11/16/16 at 09:00 Acetaminophen (Tylenol Tab) 650 mg Q6H PRN PO PAIN AND OR ELEVATED TEMP Last administered on 11/22/16 22:40; Admin Dose 650 MG; Start 11/15/16 at 21:26 Epoetin Hadley (Epogen (Esrd)) 6,000 units MoWeFr@17 SC Last administered on 11/23 18:44; Admin Dose 6,000 UNITS; Start 11/16/16 at 17:00 Cholestyramine Resin (Questran Light) 4 gm BID PO Last administered on 09:00; Admin Dose 4 GM; Start 11/16/16 at 11:30 Levofloxacin (Levaquin) 500 mg Q48H GTB Last administered on 11/25/16 11:44; Admin Dose 500 MG; Start 11/17/16 at 11:00 Famotidine 20 mg 20 mg HS GTB Last administered on 11/24/16 21:10; Admin Dose 20 MG; Start 11/17/16 at 21:00 Metronidazole (Flagyl 500 Mg (Pmx)) 100 ml @ 100 mls/hr Q8 IVPB Last administered on 11/25/16t 06:04; Admin Dose 100 MLS/HR; Start 11/19/16 at 14:00 MARTINEZ WEST MD Nov 25, 2016 12:47
--- NOTE | 2016-11-25 12:50 | PN ---
Date/Time of Note Date/Time of Note DATE: 11/25/16 TIME: 12:47 Assessment/Plan VTE Prophylaxis VTE Prophylaxis Intervention: other Lines/Catheters IV Catheter Type (from Nrs): Saline Lock Urinary Cath still in place: No Assessment/Plan Problems: (1) End-stage renal disease on hemodialysis Status: Chronic Comment: Continues on hemodialysis as per nephrology (2) Decubitus ulcer of ankle, stage 2 Status: Chronic Comment: Continue to work with this patient. Although given the ultimate situation unlikely to make significant progress Qualifiers: Laterality: right Qualified Code: L89.512 - Decubitus ulcer of ankle, stage 2, right (3) Decubitus ulcer of back, stage 4 Status: Chronic Comment: As above (4) Encephalopathy chronic Status: Chronic Comment: Likelihood of meaningful recovery is nil (5) Aspiration pneumonia Status: Acute Comment: On appropriate antibiotic Qualifiers: Aspiration pneumonia type: unspecified Laterality: right Lung location: lower lobe of lung Qualified Code: J69.0 - Aspiration pneumonia of right lower lobe, unspecified aspiration pneumonia type Subjective 24 Hr Interval Summary Subjective hx not possible: pt non-verbal Exam/Review of Systems Vital Signs Vitals Vital Signs Date Time Temp Pulse Resp B/P Pulse Ox O2 Delivery O2 Flow Rate FiO2 11/25/16 12:37 82 11/25/16 11:53 98.4 19 132/64 100 11/25/16 09:05 Nasal Cannula 2.0 11/23/16 01:05 40 Intake and Output 11/24/16 11/24/16 11/25/16 15:00 23:00 07:00 Intake Total 600 ml Balance 600 ml Exam Constitutional: alert, non-verbal Neck: non-tender, supple Respiratory: clear to auscultation, normal air movement Extremities: other (Contractured with decubiti) Neurological: other (Patient not able to verbally respond) Skin: other (Sacral decubiti) Results Result Diagram: 11/24/16 0945 11/22/16 0600 Medications Medications Current Medications Ondansetron HCl (Zofran Inj) 4 mg Q6H PRN IV NAUSEA AND/OR VOMITING; Start 07/16 at 23:30 Morphine Sulfate (morphine) 2 mg Q4H PRN IV SEVERE PAIN LEVEL 7-10; Start 11/09 at 23:30 Clopidogrel Bisulfate (plaVIX) 75 mg DAILY GTB Last administered on 11/25/16 09:09; Admin Dose 75 MG; Start 11/10/16 at 09:00 Warfarin Sodium (Coumadin) 2 mg DAILY@17 GTB Last administered on 11/24/16 17: 49; Admin Dose 2 MG; Start 11/10/16 at 17:00 Lactobacillus Acidoph/Bulgaricus (Floranex) 1 tab BID PO Last administered on 09:08; Admin Dose 1 TAB; Start 11/12/16 at 14:00 Carvedilol (Coreg) 3.125 mg BID GTB Last administered on 11/25/16 09:09; Admin Dose 3.125 MG; Start 11/12/16 at 21:00 Lisinopril (Zestril) 2.5 mg DAILY GTB Last administered on 11/25/16 09:09; Admin Dose 2.5 MG; Start 11/13/16 at 09:00 Atorvastatin Calcium (Lipitor) 40 mg QHS GTB Last administered on 11/24/16 21: 09; Admin Dose 40 MG; Start 11/14/16 at 21:00 Cholecalciferol (Vitamin D) 2,000 unit DAILY PEG Last administered on 09:08; Admin Dose 2,000 UNIT; Start 11/16/16 at 09:00 Acetaminophen (Tylenol Tab) 650 mg Q6H PRN PO PAIN AND OR ELEVATED TEMP Last administered on 11/22/16 22:40; Admin Dose 650 MG; Start 11/15/16 at 21:26 Epoetin Hadley (Epogen (Esrd)) 6,000 units MoWeFr@17 SC Last administered on 11/23 18:44; Admin Dose 6,000 UNITS; Start 11/16/16 at 17:00 Cholestyramine Resin (Questran Light) 4 gm BID PO Last administered on 09:00; Admin Dose 4 GM; Start 11/16/16 at 11:30 Levofloxacin (Levaquin) 500 mg Q48H GTB Last administered on 11/25/16 11:44; Admin Dose 500 MG; Start 11/17/16 at 11:00 Famotidine 20 mg 20 mg HS GTB Last administered on 11/24/16 21:10; Admin Dose 20 MG; Start 11/17/16 at 21:00 Metronidazole (Flagyl 500 Mg (Pmx)) 100 ml @ 100 mls/hr Q8 IVPB Last administered on 11/25/16t 06:04; Admin Dose 100 MLS/HR; Start 11/19/16 at 14:00 GREGG DUKE MD Nov 25, 2016 12:50
[2016-11-25] MEDS: WARFARIN 2 MG TAB GTB SCH (17:13)
[2016-11-25] MEDS ORDERED: VITAMIN A & D 5 GM OINT PACKET TOP ONE (20:23)
[2016-11-25] MEDS: ATORVASTATIN 40 MG TAB GTB SCH (20:30)
[2016-11-25] MEDS: FAMOTIDINE 20 MG TAB GTB SCH (20:31)
[2016-11-26] VITALS (19 sets, daily range): BP systolic 112–189; BP diastolic 52–83; PULSE 77–100; RESP 18–20
[2016-11-26] MEDS: ACETAMINOPHEN 325 MG TAB PO PRN ×2 (05:45→11:48)
[2016-11-26] MEDS: metroNIDAZOLE 500 MG/NS (PMX) 100 ML IVPB SCH ×3 (05:45→22:04)
[2016-11-26 08:02] LABS: INR 3.16; PROTIME 32.9 Sec (12.2-14.2); PT RATIO 2.6
[2016-11-26] MEDS: ALBUTEROL 0.083% (NEB) 2.5 MG/3 ML AMP HHN SCH ×4 (08:19→23:45)
[2016-11-26] MEDS: CHOLESTYRAMINE (LIGHT) 4 GM PACKET PO SCH ×2 (11:37→20:55)
[2016-11-26] MEDS: SEVELAMER CARBONATE 0.8 GM PKT GTB SCH ×3 (11:37→18:08)
[2016-11-26] MEDS: CLOPIDOGREL 75 MG TAB GTB SCH (11:37)
[2016-11-26] MEDS: LACTOBACILLUS CHEW TAB PO SCH ×2 (11:38→20:55)
[2016-11-26] MEDS: CHOLECALCIFEROL 2,000 UNIT CAP PEG SCH (11:38)
[2016-11-26] MEDS: LISINOPRIL 5 MG TAB GTB SCH (11:38)
--- NOTE | 2016-11-26 11:46 | PN ---
Date/Time of Note Date/Time of Note DATE: 11/26/16 TIME: 11:44 Assessment/Plan VTE Prophylaxis VTE Prophylaxis Intervention: other (coumadin) Lines/Catheters [facility] Saline Lock Urinary Cath still in place: No Assessment/Plan Assessment/Plan 1. Pneumonia likely recurrent aspiration; treated 2. Sepsis; septic encephalopathy from pneumonia 3. Dysphagia, PEG 10/19/16 4. Ischemic stroke 2014; on Plavix 5. Dementia, chronic 6. ESRD mwf HD 7. Functional quadriplegia 8. Cardiac thrombus; on coumadin- [facility] 9. Malnutrition. Cont feeds and free water. 10. Htn, clonidine prn 11. AICD 12. Pul Nodule 8 mm pleural; may continue surveillance although not a surgical candidate 13. Abn LFTs; viral process vs statin? No evidence of cholecystitis. 14. CAD/ pci- 5stents; Ho VFib/ VT arrest/ AICD; bb/plavix; not a candidate for cath/stress. cont plavix. 15. 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 17. Ischemic cardiomyopathy stable continue beta-sanju/ACEi. 18. DVT prophylaxis: on coumadin Subjective 24 Hr Interval Summary Free Text/Dictation nonverbal. Exam/Review of Systems Vital Signs Vitals Vital Signs Date Time Temp Pulse Resp B/P Pulse Ox O2 Delivery O2 Flow Rate FiO2 11/26/16 08:57 86 11/26/16 08:22 98.1 18 112/62 97 11/26/16 08:19 Nasal Cannula 3.0 11/23/16 01:05 40 Intake and Output 11/25/16 11/25/16 11/26/16 15:00 23:00 07:00 Intake Total 970 ml 550 ml Balance 970 ml 550 ml Exam Constitutional: non-verbal Head: atraumatic, normocephalic Eyes: EOMI, PERRL, nl conjunctiva, nl lids ENMT: nl external ears & nose Neck: supple Respiratory: diminished breath sounds Cardiovascular: nl pulses, regular rate and rhythm, No S3, No S4, No bruits, No diastolic murmur, No edema, No gallop, No irregular rhythm, No jugular venous distention (JVD), No murmurs/extra sounds, No rub, No systolic murmur Gastrointestinal: nl liver, spleen, soft, No ascites, No bowel sounds, No distended, No firm, No hepatomegaly, No mass , No other, No rebound or guarding, No splenomegaly, No surgical scars, No tender Musculoskeletal: nl extremities to inspection Extremities: No clubbing, No cyanosis, No edema, No normal pulses, No palpable cord, No pitting pedal edema Neurological: confused, lethargic Results Result Diagram: 11/24/16 0945 11/22/16 0600 Results 24 hrs Laboratory Tests Test 11/26/16 07:02 INR International Normalized Ratio 3.16 Prothrombin Time 32.9 #H Prothrombin Time Ratio 2.6 Medications Medications Current Medications Ondansetron HCl (Zofran Inj) 4 mg Q6H PRN IV NAUSEA AND/OR VOMITING; Start 07/16 at 23:30 Morphine Sulfate (morphine) 2 mg Q4H PRN IV SEVERE PAIN LEVEL 7-10; Start 11/09 at 23:30 Clopidogrel Bisulfate (plaVIX) 75 mg DAILY GTB Last administered on 11/26/16 11:37; Admin Dose 75 MG; Start 11/10/16 at 09:00 Warfarin Sodium (Coumadin) 2 mg DAILY@17 GTB Last administered on 11/25/16 17: 13; Admin Dose 2 MG; Start 11/10/16 at 17:00 Lactobacillus Acidoph/Bulgaricus (Floranex) 1 tab BID PO Last administered on 11:38; Admin Dose 1 TAB; Start 11/12/16 at 14:00 Carvedilol (Coreg) 3.125 mg BID GTB Last administered on 11/25/16 20:30; Admin Dose 3.125 MG; Start 11/12/16 at 21:00 Lisinopril (Zestril) 2.5 mg DAILY GTB Last administered on 11/26/16 11:38; Admin Dose 2.5 MG; Start 11/13/16 at 09:00 Atorvastatin Calcium (Lipitor) 40 mg QHS GTB Last administered on 11/25/16 20: 30; Admin Dose 40 MG; Start 11/14/16 at 21:00 Cholecalciferol (Vitamin D) 2,000 unit DAILY PEG Last administered on 11:38; Admin Dose 2,000 UNIT; Start 11/16/16 at 09:00 Acetaminophen (Tylenol Tab) 650 mg Q6H PRN PO PAIN AND OR ELEVATED TEMP Last administered on 11/26/16 05:45; Admin Dose 650 MG; Start 11/15/16 at 21:26 Epoetin Hadley (Epogen (Esrd)) 6,000 units MoWeFr@17 SC Last administered on 11/23 18:44; Admin Dose 6,000 UNITS; Start 11/16/16 at 17:00 Cholestyramine Resin (Questran Light) 4 gm BID PO Last administered on 11:37; Admin Dose 4 GM; Start 11/16/16 at 11:30 Levofloxacin (Levaquin) 500 mg Q48H GTB Last administered on 11/25/16 11:44; Admin Dose 500 MG; Start 11/17/16 at 11:00 Famotidine 20 mg 20 mg HS GTB Last administered on 11/25/16 20:31; Admin Dose 20 MG; Start 11/17/16 at 21:00 Metronidazole (Flagyl 500 Mg (Pmx)) 100 ml @ 100 mls/hr Q8 IVPB Last administered on 11/26/16 05:45; Admin Dose 100 MLS/HR; Start 11/19/16 at 14:00 Clonidine (Catapres) 0.1 mg Q4H PRN GTB sbp>160; Start 11/26/16 at 12:00; Status BRIGHT PAUL MD Nov 26, 2016 11:46
--- NOTE | 2016-11-26 14:21 | RADRPT ---
PROCEDURE: CHEST 1VW CLINICAL INDICATION: Shortness of breath TECHNIQUE: Single frontal view of the chest was obtained COMPARISON: 11/16/2016 FINDINGS: There is a left chest wall AICD device. The cardiac size is moderately enlarged, stable. Aortic vascular calcifications are demonstrated. There is no pulmonary vascular congestion. Bibasilar atelectasis. The lungs are otherwise clear. No consolidation, effusion, or pneumothorax. Mild degenerative changes of the visualized osseous structures are visualized. IMPRESSION: 1. Stable cardiomegaly with bibasilar atelectasis. 2. Atherosclerosis. 3. Stable left chest wall defibrillator. RPTAT:PP .Cameron Slater MD, MD Date Time Electronically viewed and signed by .Cameron Slater MD, on 11/26/2016 14:21 .V/
--- NOTE | 2016-11-26 17:47 | CONS ---
Date/Time of Note Date/Time of Note DATE: 11/26/16 TIME: 17:46 Assessment/Plan Assessment/Plan Additional Assessment/Plan 1. Altered mental status likely secondary to sepsis secondary to pneumonia. 2. Acute respiratory failure, on ventilator.s/p Extubation 3. End-stage renal disease on hemodialysis.MWF 4. History of previous stroke resulting in dysphagia status post G-tube placement for feeding purposes. 5. History of hypertension. 6. History of PEG tube placement and arteriovenous fistula for dialysis access. 7. H/o Defibrillator placement PLAN: IV abx for sepsis and PNA, IV abx for luecocytosis pt is on MWF schedule , s/p HD today will continue to follow up Consultation Date/Type/Reason Admit Date/Time Nov 09, 2016 at 23:15 Initial Consult Date 11/09/2016 Type of Consultation: NEPHROLOGY Referring Provider: MELI MENDEZ MD 24 HR Interval Summary Free Text/Dictation pt was very agitated and hypoxic during HD, Bp stable, afebrile Exam/Review of Systems Vital Signs Vitals Vital Signs Date Time Temp Pulse Resp B/P Pulse Ox O2 Delivery O2 Flow Rate FiO2 11/26/16 17:04 2.0 11/26/16 17:04 82 20 96 Nasal Cannula 11/26/16 16:24 98.4 135/80 11/23/16 01:05 40 Intake and Output 11/25/16 11/25/16 11/26/16 15:00 23:00 07:00 Intake Total 970 ml 550 ml Balance 970 ml 550 ml Exam NECK: Supple, no JVD or lymphadenopathy. CARDIAC: S1, S2, no added sounds or murmurs. CHEST: bibasilar rales ABDOMEN: Soft, nontender. EXTREMITIES: No cyanosis, clubbing or edema. left forearm aVF with good thrill and bruit Results Result Diagram: 11/24/16 0945 11/22/16 0600 Results 24 hrs Laboratory Tests Test 11/26/16 07:02 INR International Normalized Ratio 3.16 Prothrombin Time 32.9 #H Prothrombin Time Ratio 2.6 Medications Medications Current Medications Ondansetron HCl (Zofran Inj) 4 mg Q6H PRN IV NAUSEA AND/OR VOMITING; Start 07/16 at 23:30 Morphine Sulfate (morphine) 2 mg Q4H PRN IV SEVERE PAIN LEVEL 7-10; Start 11/09 at 23:30 Clopidogrel Bisulfate (plaVIX) 75 mg DAILY GTB Last administered on 11/26/16 11:37; Admin Dose 75 MG; Start 11/10/16 at 09:00 Warfarin Sodium (Coumadin) 2 mg DAILY@17 GTB Last administered on 11/25/16 17: 13; Admin Dose 2 MG; Start 11/10/16 at 17:00; Status Future hold Lactobacillus Acidoph/Bulgaricus (Floranex) 1 tab BID PO Last administered on 11:38; Admin Dose 1 TAB; Start 11/12/16 at 14:00 Carvedilol (Coreg) 3.125 mg BID GTB Last administered on 11/25/16 20:30; Admin Dose 3.125 MG; Start 11/12/16 at 21:00 Atorvastatin Calcium (Lipitor) 40 mg QHS GTB Last administered on 11/25/16 20: 30; Admin Dose 40 MG; Start 11/14/16 at 21:00 Cholecalciferol (Vitamin D) 2,000 unit DAILY PEG Last administered on 11:38; Admin Dose 2,000 UNIT; Start 11/16/16 at 09:00 Acetaminophen (Tylenol Tab) 650 mg Q6H PRN PO PAIN AND OR ELEVATED TEMP Last administered on 11/26/16 11:48; Admin Dose 650 MG; Start 11/15/16 at 21:26 Epoetin Hadley (Epogen (Esrd)) 6,000 units MoWeFr@17 SC Last administered on 11/23 18:44; Admin Dose 6,000 UNITS; Start 11/16/16 at 17:00 Cholestyramine Resin (Questran Light) 4 gm BID PO Last administered on 11:37; Admin Dose 4 GM; Start 11/16/16 at 11:30 Levofloxacin (Levaquin) 500 mg Q48H GTB Last administered on 11/25/16 11:44; Admin Dose 500 MG; Start 11/17/16 at 11:00 Famotidine 20 mg 20 mg HS GTB Last administered on 11/25/16 20:31; Admin Dose 20 MG; Start 11/17/16 at 21:00 Metronidazole (Flagyl 500 Mg (Pmx)) 100 ml @ 100 mls/hr Q8 IVPB Last administered on 11/26/16 13:44; Admin Dose 100 MLS/HR; Start 11/19/16 at 14:00 Clonidine (Catapres) 0.1 mg Q4H PRN GTB sbp>160 Last administered on 11/26/16 11:48; Admin Dose 0.1 MG; Start 11/26/16 at 12:00 Lisinopril (Zestril) 10 mg DAILY GTB ; Start 11/27/16 at 09:00 MARTINEZ WEST MD Nov 26, 2016 17:47
[2016-11-26] MEDS: EPOETIN 3000 UNITS/1 ML INJ (ESRD) SC SCH (18:22)
[2016-11-26] MEDS ORDERED: hydrALAzine 20 MG INJ IV PRN (20:00)
[2016-11-26] MEDS: ATORVASTATIN 40 MG TAB GTB SCH (20:54)
[2016-11-26] MEDS: FAMOTIDINE 20 MG TAB GTB SCH (20:55)
[2016-11-27] VITALS (11 sets, daily range): BP systolic 131–171; BP diastolic 67–84; PULSE 90–103; RESP 18–20
[2016-11-27] MEDS: metroNIDAZOLE 500 MG/NS (PMX) 100 ML IVPB SCH ×3 (05:41→21:26)
[2016-11-27 06:21] LABS: ADD SCAN DIFF NO
[2016-11-27 06:27] LABS: BASOPHILS % 0.5 % (0.0-2.0); EOSINOPHILS # 0.5 10^3/ul (0.0-0.5); EOSINOPHILS % 6.1 % (0.0-7.0); HEMATOCRIT 25.4 % (42.0-52.0); LYMPHOCYTES # 1.3 10^3/ul (0.8-2.9); LYMPHOCYTES % 14.7 % (15.0-51.0); MEAN CORPUSCULAR HEMOGLOBIN 30.3 pg (29.0-33.0); MEAN CORPUSCULAR HGB CONC 31.5 g/dl (32.0-37.0); MEAN CORPUSCULAR VOLUME 96.2 fl (82.0-101.0); MEAN PLATELET VOLUME 9.8 fl (7.4-10.4); MONOCYTE # 1.2 10^3/ul (0.3-0.9); MONOCYTES % 13.8 % (0.0-11.0); NEUTROPHIL # 5.7 10^3/ul (1.6-7.5); NEUTROPHILS % 64.1 % (39.0-77.0); PLATELET COUNT 281 10^3/UL (140-415); RED BLOOD COUNT 2.64 10^6/ul (4.70-6.10); RED CELL DISTRIBUTION WIDTH 16.4 % (11.5-14.5); WHITE BLOOD COUNT 8.9 10^3/ul (4.8-10.8)
[2016-11-27 06:31] LABS: INR 3.2; POTASSIUM 4.2 mmol/L (3.5-5.1); PROTIME 33.2 Sec (12.2-14.2); PT RATIO 2.6
[2016-11-27 06:34] LABS: CREATININE 4.62 mg/dl (0.61-1.24)
[2016-11-27 06:35] LABS: CALCIUM 8.8 mg/dl (8.4-10.2)
[2016-11-27] MEDS: ALBUTEROL 0.083% (NEB) 2.5 MG/3 ML AMP HHN SCH ×2 (07:46→16:36)
--- NOTE | 2016-11-27 09:27 | CONS ---
Date/Time of Note Date/Time of Note DATE: 11/27/16 TIME: 09:26 Assessment/Plan Assessment/Plan Additional Assessment/Plan 1. Altered mental status likely secondary to sepsis secondary to pneumonia. 2. Acute respiratory failure, on ventilator.s/p Extubation 3. End-stage renal disease on hemodialysis.MWF 4. History of previous stroke resulting in dysphagia status post G-tube placement for feeding purposes. 5. History of hypertension. 6. History of PEG tube placement and arteriovenous fistula for dialysis access. 7. H/o Defibrillator placement PLAN: IV abx for sepsis and PNA, IV abx for luecocytosis pt is on MWF schedule ,HD ordered for tomorrow BP not optimally controlled, on lisinopril,coreg, will add amlodipine 10mg NGT daily will continue to follow up Consultation Date/Type/Reason Admit Date/Time Nov 09, 2016 at 23:15 Initial Consult Date 11/09/2016 Type of Consultation: NEPHROLOGY Reason for Consultation ESRD on HD, accelerated HTN Referring Provider: MELI MENDEZ MD 24 HR Interval Summary Free Text/Dictation Bp was high, clonidine was given, had a 6 beats of ventricular aberrancy Exam/Review of Systems Vital Signs Vitals Vital Signs Date Time Temp Pulse Resp B/P Pulse Ox O2 Delivery O2 Flow Rate FiO2 11/27/16 08:02 98.5 101 20 171/84 100 11/27/16 07:48 Nasal Cannula 2.0 Intake and Output 11/26/16 11/26/16 11/27/16 15:00 23:00 07:00 Intake Total 500 ml 660 ml 585 ml Output Total 2000 ml Balance -1500 ml 660 ml 585 ml Exam NECK: Supple, no JVD or lymphadenopathy. CARDIAC: S1, S2, no added sounds or murmurs. CHEST: bibasilar rales ABDOMEN: Soft, nontender. EXTREMITIES: No cyanosis, clubbing or edema. left forearm aVF with good thrill and bruit Results Result Diagram: 11/27/1642 11/27/16 0542 Results 24 hrs Laboratory Tests Test 11/27/16 05:42 Anion Gap 15 Basophils # 0.0 Basophils % 0.5 Blood Urea Nitrogen 38 H Calcium Level 8.8 Carbon Dioxide Level 27 Chloride Level 101 Creatinine 4.62 H Eosinophils # 0.5 Eosinophils % 6.1 Glucose Level 95 Hematocrit 25.4 L Hemoglobin 8.0 L INR International Normalized Ratio 3.20 Lymphocytes # 1.3 Lymphocytes % 14.7 L Mean Corpuscular Hemoglobin 30.3 Mean Corpuscular Hemoglobin Concent 31.5 L Mean Corpuscular Volume 96.2 Mean Platelet Volume 9.8 Monocytes # 1.2 H Monocytes % 13.8 H Neutrophils # 5.7 Neutrophils % 64.1 Nucleated Red Blood Cells # 0.0 Nucleated Red Blood Cells % 0.0 Platelet Count 281 # Potassium Level 4.2 Prothrombin Time 33.2 H Prothrombin Time Ratio 2.6 Red Blood Count 2.64 L Red Cell Distribution Width 16.4 H Sodium Level 139 White Blood Count 8.9 # Medications Medications Current Medications Ondansetron HCl (Zofran Inj) 4 mg Q6H PRN IV NAUSEA AND/OR VOMITING; Start 07/16 at 23:30 Morphine Sulfate (morphine) 2 mg Q4H PRN IV SEVERE PAIN LEVEL 7-10; Start 11/09 at 23:30 Clopidogrel Bisulfate (plaVIX) 75 mg DAILY GTB Last administered on 11/26/16 11:37; Admin Dose 75 MG; Start 11/10/16 at 09:00 Warfarin Sodium (Coumadin) 2 mg DAILY@17 GTB Last administered on 11/25/16 17: 13; Admin Dose 2 MG; Start 11/10/16 at 17:00; Status Future hold Lactobacillus Acidoph/Bulgaricus (Floranex) 1 tab BID PO Last administered on 20:55; Admin Dose 1 TAB; Start 11/12/16 at 14:00 Carvedilol (Coreg) 3.125 mg BID GTB Last administered on 11/26/16 20:55; Admin Dose 3.125 MG; Start 11/12/16 at 21:00 Atorvastatin Calcium (Lipitor) 40 mg QHS GTB Last administered on 11/26/16 20: 54; Admin Dose 40 MG; Start 11/14/16 at 21:00 Cholecalciferol (Vitamin D) 2,000 unit DAILY PEG Last administered on 11:38; Admin Dose 2,000 UNIT; Start 11/16/16 at 09:00 Acetaminophen (Tylenol Tab) 650 mg Q6H PRN PO PAIN AND OR ELEVATED TEMP Last administered on 11/26/16 11:48; Admin Dose 650 MG; Start 11/15/16 at 21:26 Epoetin Hadley (Epogen (Esrd)) 6,000 units MoWeFr@17 SC Last administered on 11/26 18:22; Admin Dose 6,000 UNITS; Start 11/16/16 at 17:00 Cholestyramine Resin (Questran Light) 4 gm BID PO Last administered on 20:55; Admin Dose 4 GM; Start 11/16/16 at 11:30 Levofloxacin (Levaquin) 500 mg Q48H GTB Last administered on 11/25/16 11:44; Admin Dose 500 MG; Start 11/17/16 at 11:00 Famotidine 20 mg 20 mg HS GTB Last administered on 11/26/16 20:55; Admin Dose 20 MG; Start 11/17/16 at 21:00 Metronidazole (Flagyl 500 Mg (Pmx)) 100 ml @ 100 mls/hr Q8 IVPB Last administered on 11/27/16 05:41; Admin Dose 100 MLS/HR; Start 11/19/16 at 14:00 Lisinopril (Zestril) 10 mg DAILY GTB ; Start 11/27/16 at 09:00 Hydralazine HCl (Apresoline) 10 mg Q6H PRN IV ELEVATED BLOOD PRESSURE; Start at 20:00 MARTINEZ WEST MD Nov 27, 2016 09:27
[2016-11-27] MEDS: LISINOPRIL 10 MG TAB GTB SCH (09:55)
[2016-11-27] MEDS: CHOLESTYRAMINE (LIGHT) 4 GM PACKET PO SCH ×2 (09:55→20:06)
[2016-11-27] MEDS: LACTOBACILLUS CHEW TAB PO SCH ×2 (09:55→20:06)
[2016-11-27] MEDS: CHOLECALCIFEROL 2,000 UNIT CAP PEG SCH (09:55)
[2016-11-27] MEDS: SEVELAMER CARBONATE 0.8 GM PKT GTB SCH ×3 (09:55→17:33)
[2016-11-27] MEDS: AMLODIPINE 10 MG TAB NGT SCH (09:56)
[2016-11-27] MEDS: CLOPIDOGREL 75 MG TAB GTB SCH (09:56)
[2016-11-27] MEDS: LEVOFLOXACIN 500 MG TAB GTB SCH (11:50)
--- NOTE | 2016-11-27 13:13 | PN ---
Date/Time of Note Date/Time of Note DATE: 11/27/16 TIME: 13:10 Assessment/Plan VTE Prophylaxis VTE Prophylaxis Intervention: other (coumadin) Lines/Catheters IV Catheter Type (from Nrs): Saline Lock Urinary Cath still in place: No Assessment/Plan Assessment/Plan 1. Pneumonia likely recurrent aspiration; treated 2. Sepsis; resolved 3. Dysphagia, PEG 10/19/16 4. Ischemic stroke 2014; on Plavix 5. Dementia, chronic 6. ESRD mwf HD 7. Functional quadriplegia 8. Cardiac thrombus; on coumadin- [facility] 9. Malnutrition. Cont feeds and free water. 10. HTN, clonidine prn 11. AICD 12. Pul Nodule 8 mm pleural; may continue surveillance although not a surgical candidate 13. Abn LFTs; viral process vs statin? No evidence of cholecystitis. 14. CAD/ pci- 5stents; Ho VFib/ VT arrest/ AICD; bb/plavix; not a candidate for cath/stress. cont plavix. 15. 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 17. Ischemic cardiomyopathy stable continue beta-sanju/ACEi. 18. DVT prophylaxis: on coumadin 19. Awaiting for placement Subjective 24 Hr Interval Summary Free Text/Dictation nonverbal, no distress Exam/Review of Systems Vital Signs Vitals Vital Signs Date Time Temp Pulse Resp B/P Pulse Ox O2 Delivery O2 Flow Rate FiO2 11/27/16 12:45 Nasal Cannula 3.0 11/27/16 12:14 98.4 107 20 146/71 100 Intake and Output 11/26/16 11/26/16 11/27/16 15:00 23:00 07:00 Intake Total 500 ml 660 ml 585 ml Output Total 2000 ml Balance -1500 ml 660 ml 585 ml Exam Constitutional: non-verbal Head: atraumatic, normocephalic Eyes: EOMI, PERRL, nl conjunctiva, nl lids ENMT: nl external ears & nose, nl lips & teeth, nl nasal mucosa & septum Neck: non-tender, supple Respiratory: clear to auscultation, normal air movement, No congested cough, No crackles/rales, No diminished breath sounds, No intercostal retraction, No labored breathing, No other, No respirations, No tactile fremitus, No wheezing Cardiovascular: nl pulses, regular rate and rhythm, No S3, No S4, No bruits, No diastolic murmur, No edema, No gallop, No irregular rhythm, No jugular venous distention (JVD), No murmurs/extra sounds, No other, No rub, No systolic murmur Gastrointestinal: nl liver, spleen, soft, No ascites, No bowel sounds, No distended, No firm, No hepatomegaly, No mass , No other, No rebound or guarding, No splenomegaly, No surgical scars Extremities: No calf tenderness, No clubbing, No cyanosis, No edema, No other, No palpable cord, No pitting pedal edema Neurological: confused, lethargic Skin: nl turgor Lymph: nl lymph nodes Results Result Diagram: 11/27/16 0542 11/27/16 0542 Results 24 hrs Laboratory Tests Test 11/27/16 05:42 Anion Gap 15 Basophils # 0.0 Basophils % 0.5 Blood Urea Nitrogen 38 H Calcium Level 8.8 Carbon Dioxide Level 27 Chloride Level 101 Creatinine 4.62 H Eosinophils # 0.5 Eosinophils % 6.1 Glucose Level 95 Hematocrit 25.4 L Hemoglobin 8.0 L INR International Normalized Ratio 3.20 Lymphocytes # 1.3 Lymphocytes % 14.7 L Mean Corpuscular Hemoglobin 30.3 Mean Corpuscular Hemoglobin Concent 31.5 L Mean Corpuscular Volume 96.2 Mean Platelet Volume 9.8 Monocytes # 1.2 H Monocytes % 13.8 H Neutrophils # 5.7 Neutrophils % 64.1 Nucleated Red Blood Cells # 0.0 Nucleated Red Blood Cells % 0.0 Platelet Count 281 # Potassium Level 4.2 Prothrombin Time 33.2 H Prothrombin Time Ratio 2.6 Red Blood Count 2.64 L Red Cell Distribution Width 16.4 H Sodium Level 139 White Blood Count 8.9 # Medications Medications Current Medications Ondansetron HCl (Zofran Inj) 4 mg Q6H PRN IV NAUSEA AND/OR VOMITING; Start 07/16 at 23:30 Morphine Sulfate (morphine) 2 mg Q4H PRN IV SEVERE PAIN LEVEL 7-10; Start 11/09 at 23:30 Clopidogrel Bisulfate (plaVIX) 75 mg DAILY GTB Last administered on 11/27/16t 09:56; Admin Dose 75 MG; Start 11/10/16 at 09:00 Warfarin Sodium (Coumadin) 2 mg DAILY@17 GTB Last administered on 11/25/16 17: 13; Admin Dose 2 MG; Start 11/10/16 at 17:00; Status Future hold Lactobacillus Acidoph/Bulgaricus (Floranex) 1 tab BID PO Last administered on 09:55; Admin Dose 1 TAB; Start 11/12/16 at 14:00 Carvedilol (Coreg) 3.125 mg BID GTB Last administered on 11/27/16 09:56; Admin Dose 3.125 MG; Start 11/12/16 at 21:00 Atorvastatin Calcium (Lipitor) 40 mg QHS GTB Last administered on 11/26/16 20: 54; Admin Dose 40 MG; Start 11/14/16 at 21:00 Cholecalciferol (Vitamin D) 2,000 unit DAILY PEG Last administered on 09:55; Admin Dose 2,000 UNIT; Start 11/16/16 at 09:00 Acetaminophen (Tylenol Tab) 650 mg Q6H PRN PO PAIN AND OR ELEVATED TEMP Last administered on 11/26/16 11:48; Admin Dose 650 MG; Start 11/15/16 at 21:26 Epoetin Hadley (Epogen (Esrd)) 6,000 units MoWeFr@17 SC Last administered on 11/26 18:22; Admin Dose 6,000 UNITS; Start 11/16/16 at 17:00 Cholestyramine Resin (Questran Light) 4 gm BID PO Last administered on 09:55; Admin Dose 4 GM; Start 11/16/16 at 11:30 Levofloxacin (Levaquin) 500 mg Q48H GTB Last administered on 11/27/16 11:50; Admin Dose 500 MG; Start 11/17/16 at 11:00 Famotidine 20 mg 20 mg HS GTB Last administered on 11/26/16 20:55; Admin Dose 20 MG; Start 11/17/16 at 21:00 Metronidazole (Flagyl 500 Mg (Pmx)) 100 ml @ 100 mls/hr Q8 IVPB Last administered on 11/27/16 05:41; Admin Dose 100 MLS/HR; Start 11/19/16 at 14:00 Lisinopril (Zestril) 10 mg DAILY GTB Last administered on 11/27/16 09:55; Admin Dose 10 MG; Start 11/27/16 at 09:00 Hydralazine HCl (Apresoline) 10 mg Q6H PRN IV ELEVATED BLOOD PRESSURE; Start at 20:00 Amlodipine Besylate (Norvasc) 10 mg DAILY NGT Last administered on 11/27/16 09 :56; Admin Dose 10 MG; Start 11/27/16 at 09:30 BRIGHT CHEN MD Nov 27, 2016 13:13
[2016-11-27] MEDS: ATORVASTATIN 40 MG TAB GTB SCH (20:06)
[2016-11-27] MEDS: FAMOTIDINE 20 MG TAB GTB SCH (20:10)
[2016-11-27] MEDS: ACETAMINOPHEN 325 MG TAB PO PRN (21:58)
[2016-11-28] VITALS (19 sets, daily range): BP systolic 102–159; BP diastolic 50–80; PULSE 86–95; RESP 16–20
[2016-11-28] MEDS: ALBUTEROL 0.083% (NEB) 2.5 MG/3 ML AMP HHN SCH ×3 (00:50→15:08)
[2016-11-28] MEDS: metroNIDAZOLE 500 MG/NS (PMX) 100 ML IVPB SCH (06:21)
[2016-11-28] MEDS: SEVELAMER CARBONATE 0.8 GM PKT GTB SCH ×3 (08:00→17:47)
[2016-11-28] MEDS: AMLODIPINE 10 MG TAB NGT SCH (09:00)
[2016-11-28] MEDS: LISINOPRIL 10 MG TAB GTB SCH (09:00)
[2016-11-28 09:56] LABS: INR 2.61; PROTIME 28.3 Sec (12.2-14.2); PT RATIO 2.2
[2016-11-28] MEDS: CLOPIDOGREL 75 MG TAB GTB SCH (10:50)
[2016-11-28] MEDS: CHOLESTYRAMINE (LIGHT) 4 GM PACKET PO SCH (10:50)
[2016-11-28] MEDS: LACTOBACILLUS CHEW TAB PO SCH (10:50)
[2016-11-28] MEDS: CHOLECALCIFEROL 2,000 UNIT CAP PEG SCH (10:50)
--- NOTE | 2016-11-28 11:53 | CONS ---
Date/Time of Note Date/Time of Note DATE: 11/28/16 TIME: 11:52 Assessment/Plan Assessment/Plan Additional Assessment/Plan 1. Altered mental status likely secondary to sepsis secondary to pneumonia. 2. Acute respiratory failure, on ventilator.s/p Extubation 3. End-stage renal disease on hemodialysis.MWF 4. History of previous stroke resulting in dysphagia status post G-tube placement for feeding purposes. 5. History of hypertension. 6. History of PEG tube placement and arteriovenous fistula for dialysis access. 7. H/o Defibrillator placement PLAN: IV abx for sepsis and PNA, IV abx for luecocytosis pt is on MWF schedule ,HD ordered for today BP not optimally controlled, on lisinopril,coreg, added amlodipine 10mg NGT daily yesterday will continue to follow up Consultation Date/Type/Reason Admit Date/Time Nov 09, 2016 at 23:15 Initial Consult Date 11/09/2016 Type of Consultation: NEPHROLOGY Reason for Consultation ESRD on HD with fluid overload, sepsis Referring Provider: MELI MENDEZ MD 24 HR Interval Summary Free Text/Dictation Plan for HD today, afebrile, HR stable, less agitated today Exam/Review of Systems Vital Signs Vitals Vital Signs Date Time Temp Pulse Resp B/P Pulse Ox O2 Delivery O2 Flow Rate FiO2 11/28/16 09:21 89 16 98 Nasal Cannula 2.0 11/28/16 07:51 98.6 150/72 Intake and Output 11/27/16 11/27/16 11/28/16 15:00 23:00 07:00 Intake Total 750 ml 550 ml Balance 750 ml 550 ml Exam NECK: Supple, no JVD or lymphadenopathy. CARDIAC: S1, S2, no added sounds or murmurs. CHEST: bibasilar rales ABDOMEN: Soft, nontender. EXTREMITIES: No cyanosis, clubbing or edema. left forearm aVF with good thrill and bruit Results Result Diagram: 11/27/16 0542 11/27/16 0542 Results 24 hrs Laboratory Tests Test 11/28/16 08:49 INR International Normalized Ratio 2.61 Prothrombin Time 28.3 H Prothrombin Time Ratio 2.2 Medications Medications Current Medications Ondansetron HCl (Zofran Inj) 4 mg Q6H PRN IV NAUSEA AND/OR VOMITING; Start 07/16 at 23:30 Morphine Sulfate (morphine) 2 mg Q4H PRN IV SEVERE PAIN LEVEL 7-10; Start 11/09 at 23:30 Clopidogrel Bisulfate (plaVIX) 75 mg DAILY GTB Last administered on 11/28/16 10 :50; Admin Dose 75 MG; Start 11/10/16 at 09:00 Warfarin Sodium (Coumadin) 2 mg DAILY@17 GTB Last administered on 11/25/16 17: 13; Admin Dose 2 MG; Start 11/10/16 at 17:00; Status Future hold Lactobacillus Acidoph/Bulgaricus (Floranex) 1 tab BID PO Last administered on 10:50; Admin Dose 1 TAB; Start 11/12/16 at 14:00 Carvedilol (Coreg) 3.125 mg BID GTB Last administered on 11/27/16 20:06; Admin Dose 3.125 MG; Start 11/12/16 at 21:00 Atorvastatin Calcium (Lipitor) 40 mg QHS GTB Last administered on 11/27/16 20: 06; Admin Dose 40 MG; Start 11/14/16 at 21:00 Cholecalciferol (Vitamin D) 2,000 unit DAILY PEG Last administered on 11/28/16 10:50; Admin Dose 2,000 UNIT; Start 11/16/16 at 09:00 Acetaminophen (Tylenol Tab) 650 mg Q6H PRN PO PAIN AND OR ELEVATED TEMP Last administered on 11/27/16 21:58; Admin Dose 650 MG; Start 11/15/16 at 21:26 Epoetin Hadley (Epogen (Esrd)) 6,000 units MoWeFr@17 SC Last administered on 11/26 18:22; Admin Dose 6,000 UNITS; Start 11/16/16 at 17:00 Cholestyramine Resin (Questran Light) 4 gm BID PO Last administered on 10:50; Admin Dose 4 GM; Start 11/16/16 at 11:30 Levofloxacin (Levaquin) 500 mg Q48H GTB Last administered on 11/27/16 11:50; Admin Dose 500 MG; Start 11/17/16 at 11:00 Famotidine 20 mg 20 mg HS GTB Last administered on 11/27/16 20:10; Admin Dose 20 MG; Start 11/17/16 at 21:00 Metronidazole (Flagyl 500 Mg (Pmx)) 100 ml @ 100 mls/hr Q8 IVPB Last administered on 11/28/16 06:21; Admin Dose 100 MLS/HR; Start 11/19/16 at 14:00 Lisinopril (Zestril) 10 mg DAILY GTB Last administered on 11/27/16 09:55; Admin Dose 10 MG; Start 11/27/16 at 09:00 Hydralazine HCl (Apresoline) 10 mg Q6H PRN IV ELEVATED BLOOD PRESSURE; Start at 20:00 Amlodipine Besylate 10 mg 10 mg DAILY NGT Last administered on 11/27/16 09:56 ; Admin Dose 10 MG; Start 11/27/16 at 09:30 Albumin Human (Albumin Human 25%) 100 ml @ 100 mls/hr ONCE ONCE IV ; Start 11/28/16 at 12:00; Stop 11/28/16 at 12:59 MARTINEZ WEST MD Nov 28, 2016 11:53
[2016-11-28] MEDS ORDERED: ALBUMIN HUMAN 25% 100 ML IV ONE (12:00)
--- NOTE | 2016-11-28 12:45 | DS ---
Date/Time of Note Date/Time of Note DATE: 11/28/16 TIME: 12:35 Discharge Summary Admission/Discharge Info Admit Date/Time Nov 09, 2016 at 23:15 Discharge Date/Time Final Diagnosis 1. Pneumonia likely recurrent aspiration; treated 2. Sepsis; resolved 3. Dysphagia, PEG 10/19/16 4. Ischemic stroke 2014; on Plavix 5. Dementia, chronic 6. ESRD mwf HD 7. Functional quadriplegia 8. Cardiac thrombus; on coumadin- [facility], follow up with INR per PCP 9. Malnutrition. Cont feeds and free water. 10. HTN, 11. AICD 12. Pul Nodule 8 mm pleural; may continue surveillance although not a surgical candidate 13. Abn LFTs; viral process vs statin? No evidence of cholecystitis. 14. CAD/ pci- 5stents; Ho VFib/ VT arrest/ AICD; bb/plavix; not a candidate for cath/stress. cont plavix. 15. 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 17. Ischemic cardiomyopathy stable continue beta-sanju/ACEi. Patient Condition: Stable Hospital Course The patient is a 66-year-old male with a history of end-stage renal disease, on dialysis. The patient also reportedly has a recent history of a stroke and is status post PEG placement. The patient apparently went to dialysis today, was altered, and they would not perform dialysis. The family is not available and, per EMS report and the ER notes, the family had noted the patient had been altered for possibly a week and worse for the past 48 hours. The decision was made to intubate the patient in the ED. No other information can be obtained by the patient. Patient is diagnosed with recurrent aspiration pneumonia and treated with antibiotics. He has been clinically stable. No antibiotics is needed on discharge. Patient had mildly elevated troponin on admission, up to 0.247. It is considered sepsis/infection and renal failure related. He is on plavix/coreg /lisinopril and statin for coronary artery disease that he had PCI in the past. I had a long discussion with the daughter, I talked about the risk of recurrent aspiration/pneumonia. Patient is full code per the family. Home Meds Reported Medications Warfarin Sodium* (Warfarin Sodium*) 6 Mg Tablet, 2 MG GTB DAILY, TAB 11/09/16 Sennosides* (Senna Lax*) 8.6 Mg Tablet, 1 TAB GTB BID, TAB 11/09/16 Sevelamer Carbonate* (Renvela*) 0.8 Gm Powd.pack, 0.8 GM GTB WITH MEALS Y for NEEDED, PACKET 11/09/16 Midodrine* (Midodrine*) 10 Mg Tablet, 10 MG GTB TID Y for NEEDED, TAB 11/09/16 Clopidogrel Bisulfate* (Clopidogrel Bisulfate*) 75 Mg Tablet, 75 MG GTB DAILY, # 30 TAB 11/09/16 Atorvastatin* (Atorvastatin*) 40 Mg Tablet, 40 MG GTB QHS, #30 TAB 11/09/16 Carvedilol* (Carvedilol*) 3.125 Mg Tablet, 3.125 MG GTB BID, #60 TAB 11/09/16 Docusate Sodium* (Doc-Q-Lace*) 100 Mg Capsule, 100 MG GTB BID Y for CONSTIPATION , CAP 11/09/16 Lisinopril* (Lisinopril*) 5 Mg Tablet, 5 MG GTB DAILY, #30 TAB 11/09/16 Follow-up Plan home with home health follow up with nephrology for HD Follow up with PCP in one week Pending Labs Laboratory Tests Test 11/28/16 08:49 INR International Normalized Ratio 2.61 Prothrombin Time 28.3Sec (12.2-14.2) Prothrombin Time Ratio 2.2 BRIGHT CHEN MD Nov 28, 2016 12:45
[2016-11-28] MEDS ORDERED: metroNIDAZOLE 500 MG TAB GTB SCH (13:00)
[2016-11-28 13:39] LABS: ADD SCAN DIFF NO
[2016-11-28 13:41] LABS: ABNORMAL IP MESSAGE 1; BASOPHILS % 0.4 % (0.0-2.0); EOSINOPHILS # 0.5 10^3/ul (0.0-0.5); EOSINOPHILS % 4.9 % (0.0-7.0); HEMATOCRIT 30.6 % (42.0-52.0); HEMOGLOBIN 9.6 g/dl (14.0-18.0); LYMPHOCYTES # 1.4 10^3/ul (0.8-2.9); LYMPHOCYTES % 15.2 % (15.0-51.0); MEAN CORPUSCULAR HEMOGLOBIN 30.3 pg (29.0-33.0); MEAN CORPUSCULAR HGB CONC 31.4 g/dl (32.0-37.0); MEAN CORPUSCULAR VOLUME 96.5 fl (82.0-101.0); MEAN PLATELET VOLUME 9.4 fl (7.4-10.4); MONOCYTE # 1.6 10^3/ul (0.3-0.9); MONOCYTES % 17.5 % (0.0-11.0); NEUTROPHIL # 5.6 10^3/ul (1.6-7.5); PLATELET COUNT 300 10^3/UL (140-415); RED BLOOD COUNT 3.17 10^6/ul (4.70-6.10); RED CELL DISTRIBUTION WIDTH 16.4 % (11.5-14.5); WHITE BLOOD COUNT 9.3 10^3/ul (4.8-10.8)
[2016-11-28] MEDS: WARFARIN 2 MG TAB GTB SCH (17:00)
[2016-11-28] MEDS: EPOETIN 3000 UNITS/1 ML INJ (ESRD) SC SCH (17:00)
== END 2016-11-28 22:04 | disposition home or self-care (01) | DRG 871 ==
LOC: E/R 18:41 → ICU 23:15 → MS4 11-14 23:25
PROVIDERS: ADMIT Internal Medicine; ATTEND Internal Medicine
PROC: 5A1945Z Respiratory Ventilation, 24-96 Consecutive Hours (ICD-10-PCS; principal; 2016-11-09)
PROC: 0BH17EZ Insertion of Endotracheal Airway into Trachea, Via Natural or Artificial Opening (ICD-10-PCS; 2016-11-09)
PROC: 0BH17EZ Insertion of Endotracheal Airway into Trachea, Via Natural or Artificial Opening (ICD-10-PCS; 2016-11-09)
PROC: 30233N1 Transfusion of Nonautologous Red Blood Cells into Peripheral Vein, Percutaneous Approach (ICD-10-PCS; 2016-11-09)
DX: A41.9 Sepsis, unspecified organism (principal); K72.00 Acute and subacute hepatic failure without coma; J96.01 Acute respiratory failure with hypoxia; I21.4 Non-ST elevation (NSTEMI) myocardial infarction; J69.0 Pneumonitis due to inhalation of food and vomit; G92 Toxic encephalopathy; L89.104 Pressure ulcer of unspecified part of back, stage 4; N18.6 End stage renal disease; R53.2 Functional quadriplegia; I12.0 Hypertensive chronic kidney disease with stage 5 chronic kidney disease or end stage renal disease; J98.11 Atelectasis; E44.0 Moderate protein-calorie malnutrition; I51.3 Intracardiac thrombosis, not elsewhere classified; L89.512 Pressure ulcer of right ankle, stage 2; I69.391 Dysphagia following cerebral infarction; I25.10 Atherosclerotic heart disease of native coronary artery without angina pectoris; I25.5 Ischemic cardiomyopathy; F03.90 Unspecified dementia, unspecified severity, without behavioral disturbance, psychotic disturbance, mood disturbance, and anxiety; F01.50 Vascular dementia, unspecified severity, without behavioral disturbance, psychotic disturbance, mood disturbance, and anxiety; M71.20 Synovial cyst of popliteal space [Baker], unspecified knee; D64.9 Anemia, unspecified; R79.89 Other specified abnormal findings of blood chemistry; R60.0 Localized edema; R91.1 Solitary pulmonary nodule; Z99.2 Dependence on renal dialysis; Z79.01 Long term (current) use of anticoagulants; Z95.5 Presence of coronary angioplasty implant and graft; Z93.1 Gastrostomy status; Z68.22 Body mass index [BMI] 22.0-22.9, adult; Z79.02 Long term (current) use of antithrombotics/antiplatelets; Z95.810 Presence of automatic (implantable) cardiac defibrillator
CPT/HCPCS: 31500; 36415; 36430; 36600; 70450; 71010; 71250; 74176; 76705; 80048; 80053; 80202; 80306; 81001; 81003; 82140; 82306; 82803; 82962; 83036; 83540; 83605; 83690; 83735; 84100; 84134; 84145; 84436; 84443; 84479; 84484; 85025; 85610; 85730; 86704; 86709; 86803; 86850; 86900; 86901; 86920; 87040; 87070; 87075; 87081; 87086; 87340; 87400; 89220; 90686; 90935; 93005; 93306; 93970; 94002; 94003; 94640; 94660; 94664; 94770; 96374; 96375; C9113; J0692; J0886; J1956; J2270; J2543; J3010; J3370; J3480; J7030; P9016; P9047; P9612

== ENCOUNTER 2016-12-03 18:33 | Emergency (ER) | payer MEDICARE, OTHER ==
[~2016-12-03] VITALS: Ht 172.7 cm; Wt 73.0 kg
[~2016-12-03 18:33] MED LIST changes: +ATOR40TA68 GTB; +CARV3.1260 GTB; +CLOP75TA4 GTB; +DOCU100C26 GTB; -ETOMIDATE 20 MG INJ ONE; +LISI-313 GTB; +MIDO10TA GTB; -ROCURONIUM 50 MG INJ ONE; +SENN-53 GTB; +SEVE0.8P GTB; +WARF6TAB35 GTB
[2016-12-03 19:00] VITALS: Ht 172.7 cm; Wt 73.0 kg
[2016-12-03 19:19] LABS: ADD SCAN DIFF NO
[2016-12-03 19:21] LABS: ABNORMAL IP MESSAGE 1; BASOPHILS % 0.3 % (0.0-2.0); EOSINOPHILS # 0.5 10^3/ul (0.0-0.5); EOSINOPHILS % 4.5 % (0.0-7.0); HEMATOCRIT 28.1 % (42.0-52.0); HEMOGLOBIN 8.8 g/dl (14.0-18.0); LYMPHOCYTES # 1.9 10^3/ul (0.8-2.9); LYMPHOCYTES % 17.1 % (15.0-51.0); MEAN CORPUSCULAR HEMOGLOBIN 30.8 pg (29.0-33.0); MEAN CORPUSCULAR HGB CONC 31.3 g/dl (32.0-37.0); MEAN CORPUSCULAR VOLUME 98.3 fl (82.0-101.0); MEAN PLATELET VOLUME 10.4 fl (7.4-10.4); MONOCYTE # 1.7 10^3/ul (0.3-0.9); MONOCYTES % 15.7 % (0.0-11.0); NEUTROPHIL # 6.9 10^3/ul (1.6-7.5); NEUTROPHILS % 61.7 % (39.0-77.0); PLATELET COUNT 274 10^3/UL (140-415); RED BLOOD COUNT 2.86 10^6/ul (4.70-6.10); RED CELL DISTRIBUTION WIDTH 18.3 % (11.5-14.5); WHITE BLOOD COUNT 11.1 10^3/ul (4.8-10.8)
--- NOTE | 2016-12-03 19:30 | RADRPT ---
PROCEDURE: Chest x-ray CLINICAL INDICATION: Altered mental status TECHNIQUE: Chest single view COMPARISON: 11/26/2016 FINDINGS: As before there is chest wall defibrillator. Stable cardiomegaly and an sclerotic aortic calcificat ion is seen. Bony vessels normal in caliber. There is mild right perihilar and lower lobe atelecta sis. Lungs otherwise clear. Costophrenic angles are sharp. Bones are osteopenic. IMPRESSION: No acute cardiopulmonary disease. Stable cardiomegaly and atherosclerotic aortic calcification Chest wall defibrillator Minimal right perihilar atelectasis RPTAT: HH .Isrrael Mcelroy MD, MD Date Time Electronically viewed and signed by .Isrrael Mcelroy MD, on 12/03/2016 19:30 .W/
[2016-12-03 19:32] LABS: INR 2.16; PROTIME 24.3 Sec (12.2-14.2); PT RATIO 1.9
[2016-12-03 19:33] LABS: PARTIAL THROMBOPLASTIN TIME 57.7 Sec (25.0-35.0)
[2016-12-03 19:40] LABS: ALBUMIN 2.7 g/dl (3.3-4.9)
[2016-12-03 19:41] LABS: POTASSIUM 4.3 mmol/L (3.5-5.1)
[2016-12-03 19:42] LABS: LACTIC ACID 1.4 mmol/L (0.5-2.2)
[2016-12-03 19:43] LABS: AMMONIA < 9 umol/l (9-30); BILIRUBIN,INDIRECT 0.1 mg/dl (0-1.1); BILIRUBIN,TOTAL 0.1 mg/dl (0.2-1.3); CREATININE 5.62 mg/dl (0.61-1.24)
[2016-12-03 19:44] LABS: ALBUMIN/GLOBULIN RATIO 0.67; TOTAL PROTEIN 6.7 g/dl (6.1-8.1)
[2016-12-03 19:54] LABS: TROPONIN-I 0.024 ng/ml (0.00-0.12)
--- NOTE | 2016-12-03 20:52 | RADRPT ---
PROCEDURE: CT head, without contrast. CLINICAL INDICATION: Altered mental status. TECHNIQUE: Noncontrast CT examination of the head, with axial, sagittal and coronal reformatted im ages. Automated dose exposure control was employed. CTDI: 44.08 mGy and DLP: 821.14 mGy-cm. COMPARISON: 11/09/2016. FINDINGS: Chronic changes of atrophy and small vessel disease white matter. Note acute hemorrhage. Subarachnoid spaces are substantially preserved and symmetric. bilateral l ateral ventricles remain somewhat prominent, and ventricles are otherwise unremarkable. Findings ma y represent manifestation of normal pressure hydrocephalus. No mass effect. Ferrell-white matter distinction is preserved without evident decreased attenuation t o suggest acute or recent infarct. Sinuses and osseous structures are unremarkable. IMPRESSION: 1. Prominent bilateral lateral ventricles, and findings may represent manifestation of normal press ure hydrocephalus. 2. Chronic changes of atrophy and small vessel disease white matter, and otherwise, no acute proces s in the head. RPTAT: [facility] Physician Nettie Date Time Electronically viewed and signed by Physician Nettie on 12/03/2016 20:52 RS/
[2016-12-03 20:53] LABS: MODE NASAL CANNULA; MetHgb Venous 0.5 %; Sample Type Blood venous; Venous COHb 0.4 %; Venous Fraction OxyHgb 78.5 %; Venous Total Hemglobin 10.9 g/dl
--- NOTE | 2016-12-03 21:13 | ERD ---
ER Documentation Chief Complaint Date/Time DATE: 12/03/16 TIME: 21:11 Chief Complaint Pt BIB RA for hypotention in Dialysis and lethargic. HPI Patient is a 66-year-old male with vegetative state, on hemodialysis, with PEG tube, nonverbal sent from dialysis for low blood pressure reading. Per report the patient is also more lethargic; however the patient is nonverbal and lethargic at baseline. No vomiting, no fever. No coughing. Patient was hospitalized last week with pneumonia. Per son hemoglobin was 8.5 last Saturday. No dark stools. ROS All systems reviewed and are negative except as per history of present illness. Medications Home Meds Reported Medications Warfarin Sodium* (Warfarin Sodium*) 6 Mg Tablet, 2 MG GTB DAILY, TAB 11/09/16 Sennosides* (Senna Lax*) 8.6 Mg Tablet, 1 TAB GTB BID, TAB 11/09/16 Sevelamer Carbonate* (Renvela*) 0.8 Gm Powd.pack, 0.8 GM GTB WITH MEALS Y for NEEDED, PACKET 11/09/16 Midodrine* (Midodrine*) 10 Mg Tablet, 10 MG GTB TID Y for NEEDED, TAB 11/09/16 Clopidogrel Bisulfate* (Clopidogrel Bisulfate*) 75 Mg Tablet, 75 MG GTB DAILY, # 30 TAB 11/09/16 Atorvastatin* (Atorvastatin*) 40 Mg Tablet, 40 MG GTB QHS, #30 TAB 11/09/16 Carvedilol* (Carvedilol*) 3.125 Mg Tablet, 3.125 MG GTB BID, #60 TAB 11/09/16 Docusate Sodium* (Doc-Q-Lace*) 100 Mg Capsule, 100 MG GTB BID Y for CONSTIPATION , CAP 11/09/16 Lisinopril* (Lisinopril*) 5 Mg Tablet, 5 MG GTB DAILY, #30 TAB 11/09/16 Allergies Allergies: Coded Allergies: codeine (Verified Allergy, Unknown, 12/03/16) levetiracetam (Verified Allergy, Unknown, 12/03/16) PMhx/Soc Past medical history: End-stage renal disease, recent pneumonia, coronary artery disease status post stent, prior CVA, intracardiac thrombus, cardiomyopathy, quadriplegia Past surgical history: Cardiac stent Social history: Lives at home with family History of Surgery: Yes (PEG TUBE PLACEMENT, FISTULA ) Anesthesia Reaction: No Hx Neurological Disorder: Yes (Previous stroke, w/ AMS - uncertain of baseline) Hx Respiratory Disorders: No Hx Cardiac Disorders: Yes (CHF) Hx Psychiatric Problems: No Hx Miscellaneous Medical Probl: No (ESRD-HD.) Hx Alcohol Use: No Hx Substance Use: No Hx Tobacco Use: No Smoking Status: Never smoker FmHx Noncontributory Physical Exam Vitals Vital Signs Date Time Temp Pulse Resp B/P Pulse Ox O2 Delivery O2 Flow Rate FiO2 12/03/16 19:00 99.2 90 22 121/57 100 Physical Exam Const: Quadriplegic, nonverbal, does not make eye contact Head: Atraumatic Eyes: Normal Conjunctiva ENT: Normal External Ears, Nose and Mouth. Neck: No JVD, no meningismus. Resp: Clear to auscultation bilaterally, mild tachypnea, no wheezes rales or rhonchi Cardio: Regular rate and rhythm, no murmurs Abd: Soft, non tender, non distended. Normal bowel sounds : Mild edema of foreskin, no erythema or discharge Skin: No petechiae or rashes Ext: No cyanosis, 1+ edema of bilateral feet Neur: Quadriplegic, does not follow commands, no tonic eye deviation Psych: Cannot assess due to baseline status Result Diagram: 12/03/16190912/03/161909 Results 24 hrs Laboratory Tests Test 12/03/16 19:10 12/03/16 19:53 Activated Partial Thromboplast Time 57.7Sec Alanine Aminotransferase (ALT/SGPT) 31IU/L Albumin 2.7g/dl Albumin/Globulin Ratio 0.67 Alkaline Phosphatase 269IU/L Ammonia < 9umol/l Anion Gap 14 Aspartate Amino Transf (AST/SGOT) 60IU/L Basophils # 0.010^3/ul Basophils % 0.3% Blood Urea Nitrogen 83mg/dl Calcium Level 9.0mg/dl Carbon Dioxide Level 33mmol/L Chloride Level 92mmol/L Creatinine 5.62mg/dl Direct Bilirubin 0.00mg/dl Eosinophils # 0.510^3/ul Eosinophils % 4.5% Globulin 4.00g/dl Glucose Level 112mg/dl Hematocrit 28.1% Hemoglobin 8.8g/dl INR International Normalized Ratio 2.16 Indirect Bilirubin 0.1mg/dl Lactic Acid Level 1.4mmol/L Lymphocytes # 1.910^3/ul Lymphocytes % 17.1% Mean Corpuscular Hemoglobin 30.8pg Mean Corpuscular Hemoglobin Concent 31.3g/dl Mean Corpuscular Volume 98.3fl Mean Platelet Volume 10.4fl Monocytes # 1.710^3/ul Monocytes % 15.7% Neutrophils # 6.910^3/ul Neutrophils % 61.7% Nucleated Red Blood Cells # 0.010^3/ul Nucleated Red Blood Cells % 0.0/100WBC Platelet Count 04292^3/UL Potassium Level 4.3mmol/L Prothrombin Time 24.3Sec Prothrombin Time Ratio 1.9 Red Blood Count 2.8610^6/ul Red Cell Distribution Width 18.3% Sodium Level 135mmol/L Total Bilirubin 0.1mg/dl Total Protein 6.7g/dl Troponin I 0.024ng/ml White Blood Count 11.110^3/ul Adam Test N/A Arterial Blood Date Drawn 12/03/2016 8:44:47 PM Arterial Blood Gas Puncture Site VENOUS LINE Blood Gas Modality NASAL CANNULA Blood Gas Notified Time 12/03/2016 8:52:57 PM Blood Gas Notified Whom BR Blood Gas Specimen Source Blood venous Blood Gas Temperature 37.0C Carboxyhemoglobin 0.4% FiO2 27.0% Venous Blood Base Excess 4.9mmol/L Venous Blood HCO3 29.6mmol/L Venous Blood Methemoglobin 0.5% Venous Blood Oxygen Saturation 79.2mmHG Venous Blood Oxyhemoglobin 78.5% Venous Blood Total Hemoglobin 10.9g/dl Venous Blood pCO2 (Temp Corrected) 44.1mmHG Venous Blood pH 7.444 Venous Blood pO2 (Temp Corrected) 43.9mmHG Procedures/MDM CT head: IMPRESSION: 1. Prominent bilateral lateral ventricles, and findings may represent manifestation of normal pressure hydrocephalus. 2. Chronic changes of atrophy and small vessel disease white matter, and otherwise, no acute process in the head. CXR: IMPRESSION: No acute cardiopulmonary disease. Stable cardiomegaly and atherosclerotic aortic calcification Chest wall defibrillator Minimal right perihilar atelectasis MDM: Patient with quadriplegia and nonverbal at baseline, on hemodialysis, found to have low blood pressure on arrival to dialysis today. Patient has normal blood pressure 3 in the ER without intervention, no fever, no significant leukocytosis, no infiltrate on chest x-ray and normal O2 sat on room air. Awaiting UA. If evidence of UTI will give dose of Rocephin and discharged with Keflex by G-tube for 10-14 days. No evidence of hyperkalemia or volume overload, stable for outpatient dialysis tomorrow. CT scan shows enlarged ventricles which may be due to volume loss versus normal pressure hydrocephalus. These findings were discussed with the son and he was advised to follow-up with the patient's neurologist. There is no evidence of GI bleed or acute change in hemoglobin. Lactic acid is not elevated to suggest sepsis. Patient is stable for outpatient treatment regardless of results of UA. Advised that some follow-up with PMD tomorrow and arrange for outpatient dialysis tomorrow. Departure Diagnosis: Primary Impression: End-stage renal disease on hemodialysis Additional Impressions: Altered level of consciousness Transient hypotension Condition: PABLO Sevilla Dec 03, 2016 21:13
[2016-12-03 21:38] LABS: ADD UMIC YES; URINE BILIRUBIN (Dip) NEGATIVE (NEGATIVE); URINE BLOOD (Dip) 2+ (NEGATIVE); URINE COLOR YELLOW (YELLOW); URINE GLUCOSE (Dip) NEGATIVE (NEGATIVE); URINE KETONES (Dip) NEGATIVE (NEGATIVE); URINE LEUKOCYTE ESTERASE (Dip) 3+ (NEGATIVE); URINE NITRITE (Dip) NEGATIVE (NEGATIVE); URINE TOTAL PROTEIN (Dip) 2+ (NEGATIVE); URINE UROBILINOGEN (Dip) 0.2 E.U./dL (0.1-1.0)
[2016-12-03 21:59] LABS: BACTERIA,URINE MODERATE
[2016-12-03] MEDS ORDERED: CEPH-443 PO (22:20)
[2016-12-03] MEDS ORDERED: CEPHALEXIN 500 MG CAP PO ONE (22:30)
[2016-12-03 23:15] VITALS: BP 139/68; PULSE 89; RESP 17; TEMP 98
== END 2016-12-03 23:15 | disposition home or self-care (01) ==
LOC: E/R 18:33
DX: N18.6 End stage renal disease (principal); R41.82 Altered mental status, unspecified; I95.89 Other hypotension; I25.10 Atherosclerotic heart disease of native coronary artery without angina pectoris; I50.9 Heart failure, unspecified; Z79.01 Long term (current) use of anticoagulants; Z99.2 Dependence on renal dialysis; Z98.61 Coronary angioplasty status
CPT/HCPCS: 36415; 70450; 71010; 80053; 81001; 81003; 82140; 82803; 83605; 84484; 85025; 85610; 85730; 87086; 93005